=== PATIENT | female | born 1955 | race Caucasian/White ===

== ENCOUNTER 2017-10-12 13:03 | Emergency (ER) | payer OTHER ==
[~2017-10-12] VITALS: Ht 152.4 cm; Wt 72.6 kg
--- NOTE | ~2017-10-12 | EKG ---
[place] [address] 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 : 1955 Requested By: Jorge Luis Rajan Order Number: [id number] MD: Pablito Naqvi Measurements Intervals [place] Rate: 51 P: 40 AK: 208 QRS: -37 QRSD: 115 T: 120 QT: 532 QTc: 491 Interpretive Statements Sinus rhythm LVH with IVCD, LAD and secondary repol abnrm Borderline prolonged QT interval Poor R wave progression No previous ECG available for comparison Electronically Signed On 10-13-2017 8:20:25 CDT by Pablito Naqvi [email or web address] <ELECTRONICALLY SIGNED> By: Pablito Naqvi MD, [facility] 10/13/17 0820 1310 1310 Pablito Naqvi MD, [facility] /EPI
[~2017-10-12 13:03] MED LIST: B12INJ IM; BENADRYL25 MG PO; CEFPODOXIME PR100 MG PO; CLARITIN10 MG PO; EFFEXOR XR75 MG PO; FLORASTOR250 MG PO; HYDRALAZINE 2525 MG PO; IMDUR 30 MG TAB30 M1 PO; IMITREX 25 MG T25 MG PO; LAMICTAL100 MG PO; LASIX 40 MG TAB40 M2 PO; LEVEMIR SUBQ; MELATONIN3 MG PO; MIRAPEX0.5 MG PO; NORVASC10 MG PO; NOVOLOG100 UNIT/1 SUBQ; PROTONIX40 M2 PO; RENVELA800 MG PO; ROBITUSSIN100 MG/53 PO; SENSIPAR 30 MG30 M1 PO; SEROQUEL 25 MG25 M1 PO; SERTRALINE HCL50 MG PO; SIVEXTRO200 M1 PO; SYNTHROID150 MCG PO; TRILEPTAL 300300 MG PO; TRIPHROCAPS SOFT1 MG PO; VITAMIN D250000 UNIT PO; XANAX 0.25 MG0.25 MG PO; XIFAXAN550 M1 PO; ZOSTRIX56.6 G1 TP; [UNRECOGNIZED DRUG - OTHER] PO
[2017-10-12 13:31] LABS: HEMATOCRIT 30.5 % (37.0-47.0); HEMOGLOBIN 10.2 gm/dL (12.0-15.0); MCHC 33.4 g/dL (28.0-37.0); MCV 98.7 fL (80.0-100.0); RBC 3.09 mil/uL (4.20-5.00); RDW 16.8 % (10.5-14.5)
[2017-10-12 13:37] LABS: ANION GAP 9 mmol/L (7-16); BUN 71 mg/dL (7-18); CALCIUM 8.5 mg/dL (8.5-10.1); CHLORIDE 104 mmol/L (98-107); CO2 25 mmol/L (21-32); CREATININE 5.6 mg/dL (0.6-1.0); GLUCOSE 135 mg/dL (74-106); POTASSIUM 5.1 mmol/L (3.5-5.1); SODIUM 138 mmol/L (136-145)
[2017-10-12 13:45] LABS: ABSOLUTE NEUTROPHILS 2.6 thou/uL (1.4-8.2); TROPONIN-I < 0.04 ng/mL (<0.06)
[2017-10-12 13:46] LABS: PLATELET COUNT 93 thou/uL (150-400); PLATELET ESTIMATE SLIGHTLY DECREASED
== END 2017-10-12 16:45 | disposition home or self-care (01) ==
LOC: ER 13:03
PROVIDERS: Nurse Practitioner
DX: R07.89 Other chest pain (principal); I12.0 Hypertensive chronic kidney disease with stage 5 chronic kidney disease or end stage renal disease; E11.22 Type 2 diabetes mellitus with diabetic chronic kidney disease; N18.6 End stage renal disease; Z99.2 Dependence on renal dialysis; I48.91 Unspecified atrial fibrillation; Z88.2 Allergy status to sulfonamides; Z88.1 Allergy status to other antibiotic agents; Z88.6 Allergy status to analgesic agent

== ENCOUNTER 2017-10-16 01:15 | Emergency (ER) | payer OTHER ==
[~2017-10-16] VITALS: Ht 160 cm; Wt 75.8 kg
--- NOTE | ~2017-10-16 | EKG ---
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: [facility] [place] : 1955 Requested By: Kendra Jacobs Order Number: [id number] MD: Pablito Naqvi Measurements Intervals [place] Rate: 52 P: 8 NJ: 243 QRS: -41 QRSD: 117 T: 98 QT: 528 QTc: 492 Interpretive Statements Sinus rhythm Prolonged [place] interval Left anterior fascicular block LVH with secondary repolarization abnormality Compared to ECG 10/12/2017 13:10:57 First degree AV block now present Electronically Signed On 10-16-2017 8:12:22 CDT by Pablito Naqvi [email or web address] <ELECTRONICALLY SIGNED> By: Pablito Naqvi MD, [facility] [id number] Pablito Naqvi MD, [facility] /EPI
[2017-10-16 02:10] LABS: ANION GAP 11 mmol/L (7-16); BUN 94 mg/dL (7-18); CALCIUM 7.7 mg/dL (8.5-10.1); CHLORIDE 101 mmol/L (98-107); CO2 24 mmol/L (21-32); CREATININE 7.1 mg/dL (0.6-1.0); GLUCOSE 128 mg/dL (74-106); HEMATOCRIT 29.2 % (37.0-47.0); HEMOGLOBIN 9.7 gm/dL (12.0-15.0); MCH 33.1 pg (26.0-34.0); MCHC 33.1 g/dL (28.0-37.0); MCV 100.1 fL (80.0-100.0); PLATELET COUNT 90 thou/uL (150-400); POTASSIUM 5.7 mmol/L (3.5-5.1); RBC 2.92 mil/uL (4.20-5.00); RDW 17.4 % (10.5-14.5); SODIUM 136 mmol/L (136-145); WBC 4.2 thou/uL (4.0-11.0)
[2017-10-16 02:18] LABS: ALBUMIN 3.1 g/dL (3.4-5.0); DIRECT BILIRUBIN 0.2 mg/dL (<0.1-0.3); SGOT 37 U/L (15-37); SGPT 39 U/L (30-65); TOTAL BILIRUBIN 0.5 mg/dL (<0.1-1.0); TOTAL PROTEIN 7.8 g/dL (6.4-8.2); TROPONIN-I < 0.04 ng/mL (<0.06)
[2017-10-16 02:44] LABS: ABSOLUTE NEUTROPHILS 3.5 thou/uL (1.4-8.2); ANISOCYTOSIS 1+
== END 2017-10-16 04:16 | disposition home or self-care (01) ==
LOC: ER 01:15
PROVIDERS: Emergency Medicine
DX: D64.9 Anemia, unspecified (principal); M25.512 Pain in left shoulder; G47.9 Sleep disorder, unspecified; E11.9 Type 2 diabetes mellitus without complications; F32.9 Major depressive disorder, single episode, unspecified; I48.91 Unspecified atrial fibrillation; I12.0 Hypertensive chronic kidney disease with stage 5 chronic kidney disease or end stage renal disease; N18.6 End stage renal disease; Z88.6 Allergy status to analgesic agent; Z90.49 Acquired absence of other specified parts of digestive tract; Z90.710 Acquired absence of both cervix and uterus; Z88.2 Allergy status to sulfonamides; Z88.8 Allergy status to other drugs, medicaments and biological substances

== ENCOUNTER 2018-09-13 23:55 | Inpatient (IN) | payer OTHER ==
[~2018-09-13] VITALS: Ht 160 cm; Wt 68.0 kg
[2018-09-13 23:57] VITALS: BP 140/47
[2018-09-14 00:51] LABS: ABSOLUTE NEUTROPHILS 8.7 thou/uL (1.4-8.2); BASOPHILS 0.2 % (0.0-2.0); HEMATOCRIT 32.2 % (37.0-47.0); HEMOGLOBIN 10.6 gm/dL (12.0-15.0); LYMPHOCYTES 2.6 % (24.0-44.0); MCH 34.3 pg (26.0-34.0); MCHC 33.1 g/dL (28.0-37.0); MCV 103.7 fL (80.0-100.0); MONOCYTES 6.2 % (1.0-8.0); PLATELET COUNT 86 thou/uL (150-400); RBC 3.11 mil/uL (4.20-5.00); WBC 9.5 thou/uL (4.0-11.0)
[2018-09-14 00:59] LABS: CALCIUM 9.7 mg/dL (8.5-10.1); CREATININE 6.8 mg/dL (0.6-1.0)
[2018-09-14 01:00] LABS: POTASSIUM 5.4 mmol/L (3.5-5.1)
[2018-09-14 01:05] LABS: ALBUMIN 2.8 g/dL (3.4-5.0); DIRECT BILIRUBIN 0.2 mg/dL (<0.1-0.3); TOTAL BILIRUBIN 0.5 mg/dL (<0.1-1.0); TOTAL PROTEIN 7.9 g/dL (6.4-8.2)
[2018-09-14 01:57] LABS: URINE BILIRUBIN NEGATIVE (Negative); URINE BLOOD TRACE (Negative); URINE CLARITY CLOUDY; URINE COLOR YELLOW; URINE GLUCOSE-RANDOM* NEGATIVE (Negative); URINE KETONES NEGATIVE (Negative); URINE NITRITE-REFLEX NEGATIVE (Negative); URINE PROTEIN (DIPSTICK) 2+ (Negative); URINE UROBILINOGEN 0.2 E.U./dl (0.2-1.0)
[2018-09-14 02:04] LABS: URINE LEUKOCYTES-REFLEX 3+ (Negative)
[2018-09-14 02:05] LABS: BACTERIA-REFLEX >30 Many /HPF (None Seen); CASTS None Seen /LPF (None Seen); MUCUS 0-3 Light strn/LPF (None Seen); SQUAMOUS >10 Many /LPF (0-3); URINE RBC 0-2 Rare /HPF (0-2); URINE WBC-REFLEX >25 Many /HPF (0-5); WBC CLUMPS Packed (None Seen)
[2018-09-14 02:06] LABS: CRYSTALS None Seen /LPF (None Seen)
[2018-09-14 03:11] VITALS: BP 135/60
[2018-09-14] MEDS ORDERED: DIPHENHYDRAMINE25 M3 PO (03:55)
[2018-09-14 03:57] VITALS: BP 146/50
[2018-09-14] MEDS ORDERED: CALCIUM ACETAT667 M2 PO (03:57)
[2018-09-14] MEDS ORDERED: PEPCID20 MG PO (03:58)
[2018-09-14] MEDS ORDERED: EFFEXOR XR150 MG PO (03:58)
[2018-09-14] MEDS ORDERED: COLACE100 MG PO (03:58)
[2018-09-14] MEDS ORDERED: HYDRALAZINE HC100 MG PO (03:59)
[2018-09-14] MEDS ORDERED: NEURONTIN100 MG PO (03:59)
[2018-09-14] MEDS ORDERED: IMITREX 50 MG T50 MG PO (04:01)
[2018-09-14] MEDS ORDERED: AVAPRO 150 MG150 M1 PO (04:01)
[2018-09-14] MEDS ORDERED: NIFEDIPINE ER60 M1 PO (04:02)
[2018-09-14] MEDS ORDERED: MIRALAX17 GM PO (04:02)
[2018-09-14] MEDS ORDERED: NIFEDIPINE ER30 M1 PO (04:02)
[2018-09-14] MEDS ORDERED: OXYCODONE HCL E10 MG PO (04:03)
[2018-09-14] MEDS ORDERED: RENA-VITE TABL0.8 MG PO (04:03)
[2018-09-14] MEDS ORDERED: SEROQUEL 25 MG25 M1 PO (04:04)
[2018-09-14] MEDS ORDERED: GAS RELIEF80 MG PO (04:04)
[2018-09-14] MEDS ORDERED: OXCARBAZEPINE300 MG PO (04:05)
[2018-09-14] MEDS ORDERED: VITAMIN D1000 UNI1 PO (04:05)
[2018-09-14] MEDS ORDERED: ONDANSETRON HCL4 M2 PO (04:06)
[2018-09-14] MEDS ORDERED: RENVELA800 MG PO (04:07)
--- NOTE | 2018-09-14 04:53 | NUR ---
ADMITTED FROM ER UNDER 'S CARE. ADMIT WITH SEPSIS AND PYRONEPHRITIS. AXOX4. DENIES PAIN AT THIS TIME. HD ACCESS ON JENNIFER POSITIVE BRUIT AND THRILL. LIMB ALERT ON. TEMP 100s. REPORTED TO JOSE CARROLL THAT MED REC IS COMPLETE. PT LITTLE BIT DRWOSY BUT AROUSABLE AND ANSWERS ALL QUESTIONS WITH EFFORT. WOUND PICTURE TAKEN AND INITAL TX GIVEN. PUT ON ISO FOR MRSA OF THE R CALF WOUND. DENIES CHILLS/NAUSEA/CEHST PAIN/SOB UPON ARRIVAL. RESTING IN BED COPMFORTALBLY. WILL CONT TO MONITOR FOR ANY CHANGES IN CONDITION.
[2018-09-14 08:00] VITALS: BP 184/62
--- NOTE | 2018-09-14 12:01 | NUR ---
Nutrition: assess d/t consult for wound. Admitted w/ AMS, sepsis; hx of ESRD, DM. Pt on dialysis MWF. Pt was being taken for test during attempted visit. Unable to obtain wt/intake hx. Will order Nepro shakes and follow up on 09/17/18.
--- NOTE | 2018-09-14 13:41 | NUR ---
PT ADMITTED RELATED TO AMS, SEPSIS, PYRONEPHRITIS. CM REVIEWED CHART AND SPOKE WITH CARE TEAM. C, ,ET WITH PT AT BEDSIDE THIS DAY. PT IS A&O X4. CM ROLE INTRODUCED PT INDICATED SHE LIVES AT [facility]. 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 PT INDICATED SHE DOES DIALYSIS AT [facility]. PT INDICATED SHE PLANS TO RETURN TO [place] ONCE MEDICALLY STABLE. CM TO [facility] INDICATED WITH DC PLANNING.
--- NOTE | 2018-09-14 13:52 | NUR ---
CARE TEAM INDICATED THAT PT EXPRESSED DESIRE TO TRANSFER TO [facility]. CM CALLED [facility] AND INDICATED PT REQUESTED TO TRANSFER. CM FAXED CLINICAL INFO FOR THEIR REVIEW. THEY INDICATED THEY REVIEW REFERRAL AND LET CM KNOW IF THEY WERE ABLE TO ACCEPT FOR TRANSFER. ACCESS CENTER CALLED [facility] AND INDICATED THAT [facility] WOULD LIKELY NOT ACCEPT PT THERE AREN'T ANY SERVICES THAT SHE NEEDS THAT CAN'T BE PROVIDED HERE BUT THAT THEY WERE GOING TO CALL BACK SHORTLY TO CONFIRM. CM AWAITINGING CONFIRMATION.
--- NOTE | 2018-09-14 14:41 | NUR ---
[facility] ACCESS [facility]ENTER INDICATED THAT [facility] COULD ACCEPT PT BUT THAT BECAUSE IT WAS PT'S REQUESTE FOR TRANSFER SHE WOULD BE RESPONSIBLE FOR TRANSPORT COST. CM NOTIFIED PT AND SHE INDCIATED THAT SHE CAN'T AFFORD THE COST OF TRANSPORT AND WOULD HAVE TO REMAIN HERE AT [facility]. CM TO FOLLOW INDICATED WITH DC PLANNING.
[2018-09-14 15:00] VITALS: BP 146/75
--- NOTE | 2018-09-14 15:22 | NUR ---
DISCHARGE PLANNING. [facility] FOLLOWING TO ASSIST WITH DISCHARGE NEEDS.
--- NOTE | 2018-09-14 15:30 | NUR ---
WOUND CONSULT: PT. WAS SEEN TODAY BY DR. MCINTOSH AND MYSELF. PT. HAS A WOUND TO HER RIGHT HILTON OF UNKOWN ETIOLOGY. COULD BE TRAMATIC IN NATURE. WOUND BED IS CLEAN AND HEALTHY IN APPEARENCE WITHOUT ANY SIGNS OR SYMPTOMS OF INFECTION. RECOMMENDATIONS: WOUND CARE TO RIGHT HILTON: GENTLY CLEANSE AREA WITH WOUND CLEANSER OR NORMAL SALINE, APPLY PURACOL AG TO WOUND BED, COVER WITH OPTIFOAM, COMPLETE CARES DAILY AND PRN. PT. AND STAFF NURSE WERE INSTRUCTED ON PLAN OF CARE.
--- NOTE | 2018-09-14 16:52 | NUR ---
IF PT IS MEDICALLY STABLE TO DC OVER THE WEEKEND BACK TO [facility] CONTACT AND FAX ORDERS TO . CHART COPY ORDERED.
--- NOTE | 2018-09-14 18:52 | NUR ---
Assumed pt care this am, consult to renal since pt is due for dialysis (MWF). Pt is on islation for MRSA from her wound located on her calf. Wound care came orders for care given and dressing done. Hemodialysis done today, pulled 2.5 L of fluid vs are stable. Pt is on a renal diet and is tolerating it well nad prefers the drinks. Diagnostics and labs done today. Pt seems to be out of it and would talk to her self and repeat her statements. Same observation was made by dialysis nurse. No complaints of pain nor nausea or vomiting has been noted.
[2018-09-14 20:01] VITALS: BP 138/72
--- NOTE | 2018-09-15 01:13 | NUR ---
patient aox4 makes needs known. patient needs turn q 2 hours. left merritt wound dressing is c/d/i. patient had dialysis and tolerated well. patient refused hs insulin. patient unhappy with care all needs met this shift. patient denied pain or discomfort.patient in bed asleep at this time breathing regular and unlaboured.
[2018-09-15 03:11] LABS: HEPATITIS B SURFACE AG Negative (Negative)
[2018-09-15 03:54] VITALS: BP 124/68
[2018-09-15 05:48] LABS: CALCIUM 9.1 mg/dL (8.5-10.1); POTASSIUM 4.1 mmol/L (3.5-5.1)
[2018-09-15 05:56] LABS: CREATININE 4.1 mg/dL (0.6-1.0)
[2018-09-15 07:35] VITALS: BP 182/76
[2018-09-15 15:08] VITALS: BP 133/58
--- NOTE | 2018-09-15 15:15 | NUR ---
RAPID RESPONSE CALLED FOR PT DUE TO FEELING COLD AND CLAMMY, AND TACHYCARDIC IN 180'S. ORDERS RECIEVED FOR EKG, CBC, CMP. PT BG 226. DR PATEL AT BEDSIDE AT THIS TIME.
[2018-09-15 15:27] LABS: MCH 34.2 pg (26.0-34.0); MCHC 33.4 g/dL (28.0-37.0); MCV 102.6 fL (80.0-100.0); PLATELET COUNT 83 thou/uL (150-400); RBC 3.51 mil/uL (4.20-5.00); RDW 16.7 % (10.5-14.5); WBC 8.2 thou/uL (4.0-11.0)
[2018-09-15 15:32] LABS: BE(vivo) 2.3 mmol/L (-2 to +3); HCO3 26.7 mmol/L (22.0-26.0); PCO2 40.9 mmHg (35.0-45.0); PO2 71.6 mmHg (80.0-100.0); pH 7.433 (7.360-7.450); sO2 94.9 % (92.0-98.0)
[2018-09-15 15:39] LABS: ALBUMIN 2.7 g/dL (3.4-5.0); CALCIUM 9.9 mg/dL (8.5-10.1); CREATININE 4.9 mg/dL (0.6-1.0); TOTAL BILIRUBIN 0.5 mg/dL (<0.1-1.0); TOTAL PROTEIN 8.6 g/dL (6.4-8.2)
[2018-09-15 15:47] LABS: ABSOLUTE NEUTROPHILS 6.6 thou/uL (1.4-8.2); ANISOCYTOSIS 1+; METAMYELOCYTES 1 %
[2018-09-15 15:48] LABS: MACROCYTES 1+
--- NOTE | 2018-09-15 18:24 | NUR ---
ORIENTED TO SELF AND HOSPITAL. ANXIOUS AT TIMES, CALLS OUT OFTEN. MRSA ISOLATION FOR RIGHT HILTON WOUND. END STAGE RENAL FX, CR 4.1 THIS MORNING. BECOMES COOL AND CLAMMY THIS AFTERNOON, HR LABILE 80-180. RAT TEAM ACTIVATED. TELEMETRY PLACED. EKG, ABG, LABWORK. DR. PATEL CALLED AND ARRIVES. SHE SUDDENLY ASYMPTOMATIC. BG 257, CR 4.9, NA 124. SR PER TELE THIS AFTERNOON. FREQUENT CHECKS; WILL CONTINUE TO MONITOR.
[2018-09-15 21:33] VITALS: BP 177/83
[2018-09-16 04:53] VITALS: BP 118/53
[2018-09-16 06:04] LABS: HEMATOCRIT 35.9 % (37.0-47.0); HEMOGLOBIN 11.9 gm/dL (12.0-15.0); MCH 33.6 pg (26.0-34.0); MCHC 33.1 g/dL (28.0-37.0); MCV 101.7 fL (80.0-100.0); RBC 3.53 mil/uL (4.20-5.00); RDW 16.4 % (10.5-14.5); WBC 5.9 thou/uL (4.0-11.0)
[2018-09-16 06:21] LABS: ALBUMIN 2.5 g/dL (3.4-5.0); CALCIUM 9.9 mg/dL (8.5-10.1); CREATININE 5.6 mg/dL (0.6-1.0); PHOSPHORUS 5.1 mg/dL (2.5-4.9); POTASSIUM 4.2 mmol/L (3.5-5.1)
--- NOTE | 2018-09-16 06:43 | NUR ---
Pt. rested quietly at intervals during the night when checked on during frequent rounds. She has been incontinent of urine and nathalie care given. No c/o pain. Bed alarm is on.
[2018-09-16 07:30] VITALS: BP 131/68
--- NOTE | 2018-09-16 12:12 | NUR ---
TOWARDS POC PT A/O X4, VSS, AFEBRILE, DENIES PAIN, NO SOA. NO CONCERNS VOICED, WILL CONTINUE TO MONITOR.
[2018-09-16 13:15] VITALS: BP 141/73
--- NOTE | 2018-09-16 13:38 | EKG ---
[address] 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 : 1955 Requested By: Samy Kwok Order Number: [id number] MD: Pablito Naqvi Measurements Intervals [place] Rate: 82 P: 42 [place]: 175 QRS: -44 QRSD: 113 T: 59 QT: 404 QTc: 472 Interpretive Statements Sinus rhythm Left anterior fascicular block Abnormal R-wave progression, late transition Left ventricular hypertrophy Compared to ECG 10/16/2017 02:31:27 Heart rate has increased First degree AV block no longer present Electronically Signed On 09-16-2018 13:38:40 CDT by Pablito Naqvi [email or web address] ��������������������������������������������� <ELECTRONICALLY SIGNED> ���������������������������������������� By: Pablito Naqvi MD, [facility] ��������������������������������������������� 09/16/18 1338 1511 1511 Pablito Naqvi MD, [facility] /EPI
[2018-09-16 20:03] VITALS: BP 141/52
--- NOTE | 2018-09-17 03:50 | NUR ---
PATIENT AOX2 CONFUSED AND FORGETFUL. PATIENT USES BEDSIDE COMMODE. PATIENT CALM AND COOPERATIVE WITH CARE AND MEDS. PATIENT NEED MINIMUM ASSISTANCE WITH ADL, BED MOBILITY, TRANSFER, AND TOILETING. FALL PRECAUTION IN PLACE. PATIENT USES CALL LIGHT APPROPRIATELY.PATIENT IN BED ASLEEP AT THIS TIME BREATHING REGULAR AND UNLABOURED.
[2018-09-17 05:56] VITALS: BP 162/75
--- NOTE | 2018-09-17 07:30 | HC ---
[facility] [place] [address] CONSULTATION Name: RAY DEMPSEY Room #: 450-P ADM IN ..#: [id number] Admission: 09/14/18 ������������������ Attend Phys: Samy Kwok MD Discharge: ������������������ Date of : 51 Report #: [id number] THIS REPORT FOR: //name// CC: Samy Kwok Chana Kidd DATE OF SERVICE: 09/14/2018 CHIEF COMPLAINT: Traumatic wound to the right leg. HISTORY OF PRESENT ILLNESS: This is a 63-year-old female patient with a history of end-stage renal disease, chronic dialysis, who was noted to have a traumatic wound to her right pretibial region that occurred several weeks ago. It has been slow to heal, is mildly tender for her. I have been asked to see her with regard to wound care. PAST MEDICAL HISTORY: Positive for diabetes mellitus, hepatitis C, hypertension, depression, hysterectomy, end-stage renal disease, on hemodialysis, atrial fibrillation. FAMILY HISTORY: Positive for heart disease and diabetes. SOCIAL HISTORY: The patient is a past user of alcohol and has some history of past drug use. Details not delineated here. ALLERGIES: TYLENOL, ASPIRIN, SULFA, TRIMETHOPRIM, and GEODON. MEDICATIONS: Include Xanax, Benadryl, Norvasc, Imitrex, Imdur, Lamictal, Lasix, Synthroid, Claritin, Florastor, Triphrocaps, Protonix, Mirapex, Renvela, Xifaxan, Effexor, Zoloft, Zostrix, NovoLog, cyanocobalamin, Sivextro, insulin. REVIEW OF SYSTEMS: CONSTITUTIONAL: The patient denies fever, chills, weight loss. NEUROLOGICAL: The patient denies focal weakness, numbness or tingling. EYES: The patient denied any visual changes, redness or drainage. ENT: The patient denies earache, nasal drainage or sore throat. CARDIOVASCULAR: The patient denies chest pain, palpitations, diaphoresis. PULMONARY: The patient denies cough, short of breath. GASTROINTESTINAL: The patient denies nausea, vomiting or abdominal pain. ORTHOPEDIC: The patient complains of pain, some mild discomfort associated with traumatic wound over to the right leg. Other systems are negative. PHYSICAL EXAMINATION: VITAL SIGNS: Include temperature 37.8, pulse 69, respiration 20, blood pressure 184/62. GENERAL: This is a chronically ill-appearing female patient who appears to be [address] [address] CONSULTATION Name: RAY DEMPSEY Room #: 450-P [facility]#: [id number] Admission: 09/14/18 ������������������ Attend Phys: Samy Kwok MD Discharge: ������������������ Date of : 51 Report #: [id number] in minimal distress. HEENT: Head normocephalic. Nose and throat are clear. NECK: Supple. LUNGS: Clear. ABDOMEN: Soft. Bowel sounds present. EXTREMITIES: Lower extremities demonstrate diminished, yet palpable distal pulses. SKIN: Everly, warm and dry. She is traumatic wound to the right pretibial region that is relatively healthy, clean and granular with a small amount of depth noted. No tunneling or undermining. NEUROLOGIC: The patient is alert and oriented. LABORATORY DATA: Includes white blood cell count 9.5 with hemoglobin of 10.6, hematocrit [place] 32.2[place] [address]. Sodium 135, potassium 5.4, chloride 99, CO2 22, BUN 81, creatinine 6.8, albumin is 2.8. CLINICAL IMPRESSION: 1. Traumatic wound to the right pretibial region. 2. Diabetes mellitus. 3. End-stage renal disease, requiring dialysis. 4. Pyelonephritis. RECOMMENDATIONS: At this point in time, we will recommend a Fibracol dressing to the wound base, covered with a bordered foam, to be changed daily. We will recommend to continue antibiotics for the pyelonephritis. Continue dialysis. Continue current medications, nutritional support to maximize wound healing. I appreciate being asked to see her in consultation. ��������������������������������������������� <ELECTRONICALLY SIGNED> ���������������������������������������� By: Chicho Ladd MD ��������������������������������������������� 09/17/18 0730 1729 0422 Chicho Ladd MD /nt
[2018-09-17 07:40] VITALS: BP 106/57
[2018-09-17 09:50] LABS: HEMATOCRIT 30.1 % (37.0-47.0); HEMOGLOBIN 10.2 gm/dL (12.0-15.0); MCH 33.9 pg (26.0-34.0); MCV 99.7 fL (80.0-100.0); RBC 3.02 mil/uL (4.20-5.00); RDW 15.8 % (10.5-14.5); WBC 6.3 thou/uL (4.0-11.0)
[2018-09-17 10:01] LABS: CALCIUM 9.4 mg/dL (8.5-10.1); CREATININE 7.3 mg/dL (0.6-1.0)
[2018-09-17 10:23] LABS: ABSOLUTE NEUTROPHILS 4.7 thou/uL (1.4-8.2)
[2018-09-17 10:24] LABS: PLATELET COUNT 91 thou/uL (150-400); PLATELET ESTIMATE SLIGHTLY DECREASED
--- NOTE | 2018-09-17 12:18 | NUR ---
Pt stated she was informed by Dr. Kwok that she can get up when she wants on her own and there is no need to inform the nurses. Will confirm, but will still keep the bed alarm on.
--- NOTE | 2018-09-17 13:18 | NUR ---
DP SENT UPDATES ON PATIENT TO [place], PATIENT TO [facility] TOMORROW.
--- NOTE | 2018-09-17 15:36 | NUR ---
WOUND FOLLOW UP: PT. WAS SEEN TODAY BY DR. MCINTOSH AND MYSELF. PT. WOUND TO HER LEG IS CLINICALLY BETTER UPON TODAYS ASSESEMENT. WOUND IS SMALL AND LESS IRRIATATED. RECOMMENDATIONS: CONTINUE WITH CURRENT PLAN OF CARE. PT. AND STAFF NURSE WERE INSTRUCTED ON PLAN OF CARE.
[2018-09-17 15:42] VITALS: BP 103/57
[2018-09-17 20:15] VITALS: BP 93/64
[2018-09-18 03:49] VITALS: BP 147/47
--- NOTE | 2018-09-18 03:58 | NUR ---
PATIENT AOX3 MAKES NEEDS KNOWN. PATIENT REMOVED IV. NEW IV ON RAC. PATIENT IS HAVING IV ABT AT THIS TIME. PATIENT DENIED PAIN OR DISCOMFORT. FALL PRECAUTION IN PLACE. PATIENT IN BED ASLEEP AT THIS TIME BREATHING REGULAR AND UNLABOURED.
[2018-09-18 05:19] LABS: HEMATOCRIT 31.5 % (37.0-47.0); HEMOGLOBIN 10.5 gm/dL (12.0-15.0); MCH 33.6 pg (26.0-34.0); MCHC 33.4 g/dL (28.0-37.0); MCV 100.7 fL (80.0-100.0); RBC 3.13 mil/uL (4.20-5.00); RDW 15.6 % (10.5-14.5); WBC 12.3 thou/uL (4.0-11.0)
[2018-09-18 05:30] LABS: CALCIUM 8.6 mg/dL (8.5-10.1); POTASSIUM 4.7 mmol/L (3.5-5.1)
[2018-09-18 05:34] LABS: CREATININE 3.9 mg/dL (0.6-1.0)
[2018-09-18 08:15] VITALS: BP 144/63
--- NOTE | 2018-09-18 12:05 | NUR ---
TOWARDS POC PT A/O X3, FORGETFULL, CONFUSED AT TIMES. VSS, AFEBRILE, PAIN MANAGED BY MEDS. PT IS PROBABLE DC TODAY TO [facility]. WILL CONTINUE TO MONITOR.
--- NOTE | 2018-09-18 13:52 | NUR ---
SW reviewed chart and spoke with nursing and attending physician. Pt may be ready for discharge back to [facility] later today. LOKESH spoke with pt's dtr, Emilia Schreiber via phone to provide update and notify of discharge plan. Pt's dtr is aware and agreeable with plan. Pt's dtr requested info on getting a new DPOA document completed. SW explained that pt must be alert/orientated x 4 in order to complete a legal document. DPOA document is not on file at [facility] or on chart from [facility]. Pt's dtr verbalized understanding. Awaiting final discharge orders at this time. LOKESH is following to assist as needed with discharge planning.
[2018-09-18 15:40] VITALS: BP 128/58; BP 152/89
--- NOTE | 2018-09-18 16:46 | NUR ---
WOUND FOLLOW UP: PT. WAS SEEN TODAY BY DR. MCINTOSH AND MYSELF. PT. WOUND IS CLINICALLY BETTER AT THIS TIME. RECOMMENDATIONS: CONTINUE WITH CURRENT PLAN OF CARE. PT. AND STAFF NURSE WERE INSTRUCTED ON PLAN OF CARE.
[2018-09-18 19:55] VITALS: BP 148/43
[2018-09-19 03:44] VITALS: BP 118/47
--- NOTE | 2018-09-19 05:06 | NUR ---
A/O. Patient voiced that she hoped the staff could wake her up during the meal time, she didnot want to miss her meals. Patient tried to have the staff to turn off the bed alarm, voicing that the doctor said she could get up to walk, the staff talked to the patient, the patient agreed to have the bed alarm on for the night. afebrile, no c/o pain, no n/v.
[2018-09-19 05:19] LABS: CALCIUM 9.1 mg/dL (8.5-10.1); POTASSIUM 4.7 mmol/L (3.5-5.1)
[2018-09-19 05:42] LABS: HEMATOCRIT 31.5 % (37.0-47.0); HEMOGLOBIN 10.6 gm/dL (12.0-15.0); MCH 33.7 pg (26.0-34.0); MCHC 33.5 g/dL (28.0-37.0); MCV 100.4 fL (80.0-100.0); RBC 3.14 mil/uL (4.20-5.00); RDW 15.8 % (10.5-14.5); WBC 6.9 thou/uL (4.0-11.0)
[2018-09-19 05:47] LABS: CREATININE 5.6 mg/dL (0.6-1.0)
[2018-09-19 08:00] VITALS: BP 136/59
--- NOTE | 2018-09-19 10:52 | NUR ---
DISCHARGE PLANNING. CALL RECEIVED FROM [facility] AD[facility]. [facility] REQUESTING INFORMATION REGARDING PATIENTS DISCHARGE PLANS. UPDATED [facility] TO POSSIBLE DISCHARGE TODAY, PENDING PATIENTS WBC RESULTS. UPDATED CLINICAL INFORMATION RECEIVED. FOLLOWING TO ASSIST WITH DC.
[2018-09-19] MEDS ORDERED: CEFDINIR300 MG PO (14:52)
--- NOTE | 2018-09-19 17:49 | NUR ---
Assumed pt care this am, vs have been stable. WBC count is back to normal. Vital signs stable. Same issues have been verbalized from last night, she wants to be awaken when meals arrive. Dialysis is ongoing, startged at 5pm. DC orders have been given, pt is to return to [place]. Endorsed to the night nurse, to call [facility] for transport and picture of wound to be taken prior to dc.
--- NOTE | 2018-09-19 21:45 | NUR ---
Assisted pt to the bedside commode. She refused to keep her socks on, she refused to be put back in bed and wanted to seat on the edge of the bed. She didnt want the bed alarm to be put on. I informed the primary nurse.
--- NOTE | 2018-09-19 22:42 | NUR ---
PT RETURNED FROM DIALYSIS. ANXIOUS TO LEAVE, UNHAPPY HER DINNER WAS COLD REFUSED TO ALLOW ME TO WARM IT UP REFUSED ALL OTHER FOOD OPTIONS AVAILABLE TO HER. REPORT CALLED TO [facility] AT [facility]. PC TO [facility] FORM FAXED TO [facility] WITHIN THE HOUR.
--- NOTE | 2018-09-20 09:37 | HC ---
[facility] [place] [address] CONSULTATION Name: RAY DEMPSEY Eusebia Room #: 450-P [facility]..#: [id number] Admission: 09/14/18 ������������������ Attend Phys: Samy Kwok MD Discharge: 09/19/18 ������������������ Date of : 51 Report #: [id number] THIS REPORT FOR: //name// CC: Samy Kwok Chana Kidd REASON FOR CONSULTATION: End-stage renal disease. REASON FOR PRESENTATION: Shaking and fever. HISTORY OF PRESENT ILLNESS: This is a 63-year-old with past medical history of end-stage renal disease, who was maintained on hemodialysis every Monday, Monday and Monday. She is dialyzing in the [facility]. She has been on dialysis for the last 5 years. She tells me that she was born with a single kidney. She had some fever and tremors and presented for further evaluation. She was found to have a temperature of 101.9 in the nursing facility. She denies any cough or shortness of breath. No reported similar episodes. No GI illnesses in the form of nausea or vomiting or diarrhea. She is being admitted to further investigate. I am being consulted to manage her end-stage renal disease. From the dialysis perspective, she is utilizing a left AV fistula. She has been on dialysis for the last 5 years. PAST MEDICAL HISTORY: 1. Diabetes mellitus. 2. Hypertension. 3. Hep C. 4. End-stage renal disease, maintained on hemodialysis. 5. AFib. 6. Migraines. 7. Left AV fistula. MEDICATIONS: 1. Alprazolam. 2. Amlodipine. 3. Lamotrigine. 4. Lasix. 5. Levothyroxine. 6. Pantoprazole. 7. Mirapex. 8. Zostrix. 9. Insulin. 10. Hydralazine. FAMILY HISTORY: Significant for heart disease. SOCIAL HISTORY: She resides in the nursing facility. No drug or alcohol abuse. [facility] [address] [place] [address] CONSULTATION Name: RAY DEMPSEY Room #: [facility].#: [id number] Admission: 09/14/18 ������������������ Attend Phys: Samy Kwok MD Discharge: 09/19/18 ������������������ Date of : 51 Report #: [id number] REVIEW OF SYSTEMS: GENERAL: Significant for fever and chills. CARDIOVASCULAR: No chest pain or palpitation. PULMONARY: No cough or hemoptysis. GASTROINTESTINAL: No nausea or vomiting. MUSCULOSKELETAL: As per the history of present illness. NEUROLOGICAL: As per the history of present illness. PHYSICAL EXAMINATION: GENERAL: She was alert, somewhat weak. No apparent distress. VITAL SIGNS: Blood pressure was 140/50. Pulse rate 64. She had a temperature of 38. HEAD AND NECK: No jugular venous distention. CHEST: No crackles. CARDIOVASCULAR: No rub. ABDOMEN: Soft and nontender. LOWER EXTREMITIES: There is a wound on the right lower extremity with +2 edema. No gross cellulitis. LABORATORY DATA: Laboratory value reviewed. Platelets is down to 86,000. Sodium is 135, potassium is 5.4, BUN is 81 and creatinine 6.8. RADIOLOGICAL DATA: Chest x-ray is clear. ASSESSMENT, IMPRESSION AND PLAN: 1. End-stage renal disease. 2. Fever. 3. Hep C. 4. Polypharmacy. 5. Thrombocytopenia. 6. Hyperkalemia. 7. We will arrange for the patient to have her usual hemodialysis today. Low K bath. 8. Investigate the source for her fever and thrombocytopenia. 9. Minimize her medication as she is definitely having a polypharmacy issue. ��������������������������������������������� <ELECTRONICALLY SIGNED> ���������������������������������������� By: Jonas Buckley MD ��������������������������������������������� 09/20/18 0937 0849 2333 Jonas Buckley MD /nt
== END 2018-09-19 23:16 | DRG 871 ==
LOC: ER 23:55 → 4W 09-14 02:26 → EROBS 09-14 02:26 → 4W 09-14 03:46
PROVIDERS: Emergency Medicine; Hospitalist; Nurse Practitioner Family; ADMIT Hospitalist
PROC: 5A1D70Z Performance of Urinary Filtration, Intermittent, Less than 6 Hours Per Day (ICD-10-PCS; principal; 2018-09-14)
PROC: 5A1D70Z Performance of Urinary Filtration, Intermittent, Less than 6 Hours Per Day (ICD-10-PCS; 2018-09-17)
PROC: 5A1D70Z Performance of Urinary Filtration, Intermittent, Less than 6 Hours Per Day (ICD-10-PCS; 2018-09-19)
DX: A41.9 Sepsis, unspecified organism (principal); N18.6 End stage renal disease; I12.0 Hypertensive chronic kidney disease with stage 5 chronic kidney disease or end stage renal disease; N13.6 Pyonephrosis; I47.1 Supraventricular tachycardia; N10 Acute pyelonephritis; E11.22 Type 2 diabetes mellitus with diabetic chronic kidney disease; B19.20 Unspecified viral hepatitis C without hepatic coma; F32.9 Major depressive disorder, single episode, unspecified; G43.909 Migraine, unspecified, not intractable, without status migrainosus; D69.6 Thrombocytopenia, unspecified; I48.0 Paroxysmal atrial fibrillation; B96.20 Unspecified Escherichia coli [E. coli] as the cause of diseases classified elsewhere; E87.5 Hyperkalemia; S81.801A Unspecified open wound, right lower leg, initial encounter; X58.XXXA Exposure to other specified factors, initial encounter; Y93.89 Activity, other specified; Y92.89 Other specified places as the place of occurrence of the external cause; Y99.8 Other external cause status; Z90.49 Acquired absence of other specified parts of digestive tract; Z90.710 Acquired absence of both cervix and uterus; Z99.2 Dependence on renal dialysis; Z79.4 Long term (current) use of insulin; Z79.899 Other long term (current) drug therapy; Z88.6 Allergy status to analgesic agent; Z88.1 Allergy status to other antibiotic agents; Z88.2 Allergy status to sulfonamides; Z88.8 Allergy status to other drugs, medicaments and biological substances; Z82.49 Family history of ischemic heart disease and other diseases of the circulatory system; Z83.3 Family history of diabetes mellitus
CPT/HCPCS: 10045; 10047; 32100

== ENCOUNTER 2019-03-12 12:57 | Emergency (ER) | payer OTHER ==
[~2019-03-12] VITALS: Ht 157.5 cm; Wt 72.6 kg
[~2019-03-12 12:57] MED LIST changes: +AVAPRO 150 MG150 M1 PO; +CALCIUM ACETAT667 M2 PO; +CEFDINIR300 MG PO; +COLACE100 MG PO; +DIPHENHYDRAMINE25 M3 PO; +EFFEXOR XR150 MG PO; +GAS RELIEF80 MG PO; +HYDRALAZINE HC100 MG PO; +IMITREX 50 MG T50 MG PO; +MIRALAX17 GM PO; +NEURONTIN100 MG PO; +NIFEDIPINE ER30 M1 PO; +NIFEDIPINE ER60 M1 PO; +ONDANSETRON HCL4 M2 PO; +OXCARBAZEPINE300 MG PO; +OXYCODONE HCL E10 MG PO; +PEPCID20 MG PO; +RENA-VITE TABL0.8 MG PO; +VITAMIN D1000 UNI1 PO
[2019-03-12] MEDS ORDERED: DOXYCYCLINE 10100 MG PO (14:29)
[2019-03-12 16:34] VITALS: BP 132/76
== END 2019-03-12 16:34 | disposition home or self-care (01) ==
LOC: ER 12:57
DX: L03.012 Cellulitis of left finger (principal); I48.91 Unspecified atrial fibrillation; E11.22 Type 2 diabetes mellitus with diabetic chronic kidney disease; I12.0 Hypertensive chronic kidney disease with stage 5 chronic kidney disease or end stage renal disease; N18.6 End stage renal disease; F32.9 Major depressive disorder, single episode, unspecified; Z99.2 Dependence on renal dialysis; Z90.49 Acquired absence of other specified parts of digestive tract; Z90.710 Acquired absence of both cervix and uterus; Z98.890 Other specified postprocedural states; Z88.6 Allergy status to analgesic agent; Z88.2 Allergy status to sulfonamides; Z88.8 Allergy status to other drugs, medicaments and biological substances

== ENCOUNTER 2019-07-15 09:01 | Emergency (ER) | payer OTHER ==
[~2019-07-15] VITALS: Ht 157.5 cm; Wt 68.0 kg
[~2019-07-15 09:01] MED LIST changes: +DOXYCYCLINE 10100 MG PO
[2019-07-15 09:31] LABS: HEMATOCRIT 28.9 % (37.0-47.0); HEMOGLOBIN 9.5 gm/dL (12.0-15.0); MCHC 32.8 g/dL (28.0-37.0); MCV 103.9 fL (80.0-100.0); RBC 2.78 mil/uL (4.20-5.00); WBC 3.3 thou/uL (4.0-11.0)
[2019-07-15 09:51] LABS: ANION GAP 11 mmol/L (7-16); BUN 46 mg/dL (7-18); CALCIUM 10.1 mg/dL (8.5-10.1); CHLORIDE 97 mmol/L (98-107); CO2 26 mmol/L (21-32); GLUCOSE 95 mg/dL (74-106); POTASSIUM 3.6 mmol/L (3.5-5.1); SODIUM 134 mmol/L (136-145)
[2019-07-15 10:00] LABS: TROPONIN-I <0.06 ng/mL (<0.06)
[2019-07-15 10:26] LABS: ABSOLUTE NEUTROPHILS 2.6 thou/uL (1.4-8.2); PLATELET COUNT 89 thou/uL (150-400); PLATELET ESTIMATE NORMAL
[2019-07-15] MEDS ORDERED: LEVAQUIN 750 M750 MG PO (11:51)
[2019-07-15 12:07] VITALS: BP 165/98
--- NOTE | 2019-07-16 08:25 | EKG ---
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 : 1955 Requested By: Bola Joseph Order Number: [id number] MD: Pablito Naqvi Measurements Intervals [place] Rate: 70 P: NM: 122 QRS: -43 QRSD: 115 T: 16 QT: 487 QTc: 526 Interpretive Statements Atrial-paced rhythm LVH with IVCD, LAD and secondary repol abnrm Prolonged QT interval Compared to ECG 09/15/2018 15:11:47 Atrial pacing is now present Nonspecific change in the ST and T-wave segments Electronically Signed On 07-16-2019 8:24:22 PRINT COLOR OPERATOR by Pablito Naqvi [email or web address] <ELECTRONICALLY SIGNED> By: Pablito Naqvi MD, [facility] 07/16/19 0824 7 7 Pablito Naqvi MD, [facility] /EPI
== END 2019-07-15 12:16 | disposition home or self-care (01) ==
LOC: ER 09:01
PROVIDERS: Emergency Medicine
DX: J18.9 Pneumonia, unspecified organism (principal); E11.22 Type 2 diabetes mellitus with diabetic chronic kidney disease; I12.9 Hypertensive chronic kidney disease with stage 1 through stage 4 chronic kidney disease, or unspecified chronic kidney disease; N18.9 Chronic kidney disease, unspecified; I48.91 Unspecified atrial fibrillation; F32.9 Major depressive disorder, single episode, unspecified; Z87.898 Personal history of other specified conditions; Z88.1 Allergy status to other antibiotic agents; Z88.2 Allergy status to sulfonamides; Z88.8 Allergy status to other drugs, medicaments and biological substances

== ENCOUNTER 2019-11-09 23:34 | Inpatient (IN) | payer OTHER ==
[~2019-11-09] VITALS: Ht 157.5 cm; Wt 70.4 kg
--- NOTE | ~2019-11-09 | EMS ---
[facility] [address] [place] [address] EMS Patient Care Report Name: RAY DEMPSEY Room #: REG DEQUAN Menard#: [id number] Admission: 11/09/19 Attend Phys: Discharge: Date of : 51 Report #: [id number] THIS REPORT FOR: //name// Report Transmitted: 11/10/2019 01:42 EMS Care Summary [place], [place]/[facility] Incident [id number] @ 11/09/2019 23:08 Incident Location 1 BENSON Figueredo 11 Patient RAY DEMPSEY Female, 64 Years 1955 Patient Address [address] [place] [address] [address] [place] [address] Patient History Behavioral/Psychiatric Disorder,Hypertension (HTN),Pacemaker/AICD,Seizures,Gastro-Esophageal Reflux Disease (GERD),Arthritis,End Stage Renal Disease (ESRD),Hepatitis C (Without Hepatic Coma),Bipolar II Disorder,Anxiety,Atrial Fibrillation,Dialysis,Type 2 Diabetes, Patient Allergies Acetaminophen,Aspirin,Sulfa,Other drug allergy, Patient Medications Imitrex, Trileptal, Gabapentin, Hydralazine, Xanax, Effexor, Lasix, Zoloft, Seroquel, Oxycodone, Chief Complaint WEAKNESS Disposition Transported No Lights/[place] Reason Falls Transported To [facility] [address] [place] [address] EMS Patient Care Report Name: RAY DEMPSEY Room #: REG [facility]#: [id number] Admission: 11/09/19 Attend Phys: Discharge: Date of : 51 Report #: [id number] Narrative SCENE: ON ARRIVAL PT FOUND SITTING UPRIGHT IN WHEELCHAIR AT NURSES DESK. PT IS AWAKE AND ALERT WITH A GCS OF 15. PT APPEARS LETHARGIC. STAFF REPORTS PT HAS BEEN WEAK FOR TWO DAYS. PT ASSISTED ONTO EMS STRETCHER. AMBULANCE: VITAL MONITORED THORUGHOUT TRANSPORT. NO CHANGES IN PT STATUS EN ROUTE, Initial Vitals @23:28P: 79,R: 20,BP: 148/89,Pain: 2/10,GCS: 15,SpO2: 100,Revised Trauma: 12, @23:25P: 71,BP: 141/64,Pain: 2/10,GCS: 15, @23:18P: 90,R: 18,GCS: 15,Revised Trauma: 12, Assessments @23:18MENTAL:Other,Person Oriented,Event Oriented,Place Oriented,Time Oriented,SKIN:No Abnormalities,HEENT:Head/Face: No Abnormalities,Eyes: No Abnormalities,Neck/Airway: No Abnormalities,LUNG SOUNDS:General: No Abnormalities,Left Upper: No Abnormalities,Right Upper: No Abnormalities,Left Lower: No Abnormalities,Right Lower: No Abnormalities,ABDOMEN:General: No Abnormalities,Left Upper: No Abnormalities,Right Upper: No Abnormalities,Left Lower: No Abnormalities,Right Lower: No Abnormalities,PELVIS//GI:EXTREMITIES:Left Arm: No Abnormalities,Right Arm: No Abnormalities,Left Leg: No Abnormalities,Right Leg: No Abnormalities,PULSE:NEURO:No Abnormalities,@23:36MENTAL:Other,Place Oriented,Time Oriented,Person Oriented,Event Oriented,SKIN:No Abnormalities,HEENT:Head/Face: No Abnormalities,Eyes: No Abnormalities,Neck/Airway: No Abnormalities,LUNG SOUNDS:General: No Abnormalities,Left Upper: No Abnormalities,Right Upper: No Abnormalities,Left Lower: No Abnormalities,Right Lower: No Abnormalities,ABDOMEN:General: No Abnormalities,Left Upper: No Abnormalities,Right Upper: No Abnormalities,Left Lower: No Abnormalities,Right Lower: No Abnormalities,PELVIS//GI:No Abnormalities,EXTREMITIES:Left Arm: No Abnormalities,Right Arm: No Abnormalities,Left Leg: No Abnormalities,Right Leg: No Abnormalities,PULSE:NEURO:No Abnormalities, Impression Generalized Weakness Procedures @23:18ALS AssessmentResponse: UnchangedSucceeded@23:21StretcherResponse: Unchanged@23:24Saline Lock 0cc (20 ga) Site: Hand-RightResponse: UnchangedFailed Timeline 23:06,Call Received 23:06,Dispatch Notified [address] [address] EMS Patient Care Report Name: RAY DEMPSEY Room #: REG DEQUAN Menard#: [id number] Admission: 11/09/19 Attend Phys: Discharge: Date of : 51 Report #: [id number] 23:08,Dispatched 23:09,En Route 23:15,On Scene 23:18,At Patient 23:18,BP: 136/ M,PULSE: 90,RR: 18 R,SPO2: Ox,ETCO2: ,BG: ,PAIN: ,GCS: 15, 23:18,ALS Assessment,Response: UnchangedSucceeded, 23:21,Stretcher,Response: Unchanged 23:24,Sal[place] Lock 0cc 20 ga Site: Hand-Right,Response: UnchangedFailed, 23:25,BP: 141/64 M,PULSE: 71,RR: R,SPO2: Ox,ETCO2: ,BG: ,PAIN: 2,GCS: 15, 23:25,Depart Scene 23:28,BP: 148/89 M,PULSE: 79,RR: 20 R,SPO2: 100 Ox,ETCO2: ,BG: ,PAIN: 2,GCS: 15, 23:46,At Destination 00:03,Call Closed Disclaimer v1.1 Copyright 2020 [employer] This EMS Care Summary contains data elements from the applicable legal record (which may be displayed differently). It is designed to provide pertinent information for the following purposes: continuity of care, clinical quality, and state data reporting. The complete legal record is available to ED staff and administrators of the receiving hospital in [employer] Patient Tracker. All data is provided "as is."
[~2019-11-09 23:34] MED LIST changes: +LEVAQUIN 750 M750 MG PO
[2019-11-09 23:41] VITALS: BP 127/65
[2019-11-10] MEDS ORDERED: SEROQUEL 100 M100 MG PO (01:00)
[2019-11-10] MEDS ORDERED: LIDOCAINE IM ×2 (01:05)
[2019-11-10] MEDS ORDERED: PROBIOTIC250 MG PO (01:07)
[2019-11-10] MEDS ORDERED: ERTAPENEM1 GM IM (01:09)
[2019-11-10] MEDS ORDERED: GUAIFENESIN ER PO (01:11)
[2019-11-10] MEDS ORDERED: HUMALOG100 UNIT/1 SUBQ (01:13)
[2019-11-10] MEDS ORDERED: OXTELLAR XR300 MG PO (01:14)
[2019-11-10] MEDS ORDERED: ALPRAZOLAM PO (01:19)
[2019-11-10] MEDS ORDERED: BENZONATATE100 MG PO (01:22)
[2019-11-10 01:23] LABS: URINE BILIRUBIN NEGATIVE (Negative); URINE BLOOD NEGATIVE (Negative); URINE CLARITY CLEAR; URINE COLOR YELLOW; URINE GLUCOSE-RANDOM* NEGATIVE (Negative); URINE KETONES TRACE (Negative); URINE NITRITE-REFLEX NEGATIVE (Negative); URINE PROTEIN (DIPSTICK) 2+ (Negative); URINE SPECIFIC GRAVITY 1.015 (1.005-1.035); URINE UROBILINOGEN 0.2 E.U./dl (0.2-1.0)
[2019-11-10 01:23] LABS: HEMATOCRIT 32.3 % (37.0-47.0); HEMOGLOBIN 10.7 gm/dL (12.0-15.0); MCH 34.5 pg (26.0-34.0); MCV 104.7 fL (80.0-100.0); RBC 3.09 mil/uL (4.20-5.00); RDW 15.5 % (10.5-14.5); WBC 3.5 thou/uL (4.0-11.0)
[2019-11-10 01:24] LABS: URINE LEUKOCYTES-REFLEX 2+ (Negative)
[2019-11-10 01:27] LABS: CALCIUM 8.5 mg/dL (8.5-10.1); CREATININE 5.7 mg/dL (0.6-1.0); POTASSIUM 4.4 mmol/L (3.5-5.1)
[2019-11-10 01:29] LABS: BACTERIA-REFLEX 1-9 Few /HPF (None Seen); CASTS None Seen /LPF (None Seen); CRYSTALS None Seen /LPF (None Seen); MUCUS None Seen strn/LPF (None Seen); SQUAMOUS 4-10 Moderate /LPF (0-3); TRANSITIONAL EPITHEL CELL 0-3 Few /LPF (None Seen); URINE RBC 0-2 Rare /HPF (0-2); URINE WBC-REFLEX >25 Many /HPF (0-5)
[2019-11-10] MEDS ORDERED: SENNA PLUS TAB1 EACH PO (01:31)
[2019-11-10 01:32] LABS: ALBUMIN 3.1 g/dL (3.4-5.0); TOTAL BILIRUBIN 0.4 mg/dL (<0.1-1.0); TOTAL PROTEIN 8.3 g/dL (6.4-8.2)
[2019-11-10] MEDS ORDERED: IMITREX 50 MG T50 MG PO (01:34)
[2019-11-10] MEDS ORDERED: PROCARDIA XL60 MG PO (01:36)
[2019-11-10] MEDS ORDERED: RENAL-VITE TAB0.8 MG PO (01:55)
[2019-11-10 02:03] LABS: PLATELET COUNT 66 thou/uL (150-400)
[2019-11-10 02:12] LABS: ABSOLUTE NEUTROPHILS 2.1 thou/uL (1.4-8.2); MYELOCYTES 1 %
[2019-11-10 02:13] LABS: MACROCYTES 1+; PLATELET ESTIMATE DECREASED; TOXIC GRANULATION 1+
[2019-11-10 04:10] VITALS: BP 111/59
[2019-11-10 04:18] VITALS: BP 125/52
[2019-11-10 04:56] VITALS: BP 123/58
[2019-11-10 08:06] VITALS: BP 123/59
--- NOTE | 2019-11-10 10:23 | EKG ---
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: chay : 1955 Requested By: Bob Pappas Order Number: [id number] MD: Pablito Naqvi Measurements Intervals [place] Rate: 70 P: LA: 143 QRS: -50 QRSD: 126 T: 69 QT: 460 QTc: 497 Interpretive Statements Atrial-paced rhythm Left anterior hemiblock Nonspecific intraventricular conduction delay Compared to ECG 07/15/2019 09:18:46 Prolonged QT interval no longer present Electronically Signed On 11-10-2019 10:21:28 CDT by Pablito Naqvi [email or web address] <ELECTRONICALLY SIGNED> By: Pablito Naqvi MD, [facility] 11/10/19 1021 0038 0038 Pablito Naqvi MD, FAC /EPI
[2019-11-10 12:22] VITALS: BP 130/59
[2019-11-10 17:40] VITALS: BP 135/58
--- NOTE | 2019-11-10 17:45 | NUR ---
ASSUMED CARE OF PT AT 0700. PT ALERT AND ORIENTED X4 IN NO ACUTE DISTRESS. VOICING NO PARTICULAR COMPLAINTS. DIM/WHZ TO ASCULTATION. VITALS STABLE. GOOD APPETITE. INCONTINENT OF URINE. UNREMARKABLE ON TELEMETRY. PLANS FOR DIALYSIS TOMORROW. CALLS APPROPRIATELY. RICH.
--- NOTE | 2019-11-10 23:24 | NUR ---
TOOK OVER CARE. PT RESTING IN BED. FEMALE EXT CATH. BED ALARM ON. PT REQUESTED SNACK AND PROVIDED. PT IS SOA WITH REPOSITIONING. SHE CAN REPOSITION SELF.
[2019-11-11 05:12] VITALS: BP 115/50
--- NOTE | 2019-11-11 07:21 | HC ---
[facility] [place] [address] [place] [address] CONSULTATION Name: RAY DEMPSEY Room #: 358-P ADM IN M.R.#: [id number] Admission: 11/10/19 Attend Phys: Jose Luis Babin MD Discharge: Date of : 51 Report #: [id number] THIS REPORT FOR: cc: Mejia Álvarez MD,Mejia Philippe,Demetrio Jacob MD ~ CC: Jose Luis Álvarez DATE OF SERVICE: 11/10/2019 REASON FOR CONSULTATION: End-stage renal disease requiring chronic hemodialysis. HISTORY OF PRESENT ILLNESS: This is a 64-year-old female who lives at [facility]. She has end-stage renal disease and is a chronic hemodialysis patient for about the past 6 years. Apparently, she fell at [place] and was very weak. She was brought in through the Emergency Room. She was admitted to the hospital. She has been placed on COVID-19 rule out. She denies any cough, dyspnea, fever. No fever has been documented. In talking to the patient, she dialyzes on Monday, Monday, Monday basis at [facility]. She is a bit sketchy on details and at times, appears somewhat confused. She thinks her last dialysis went okay. She knows that she sometimes cramps during dialysis. She says over the last few weeks, she has been getting progressively weaker, leading to this fall that she had overnight. PAST MEDICAL HISTORY: Longstanding hypertension, although she has been hypotensive of late from what I can tell. She is still on some nifedipine and also volume removal with dialysis, which may be contributing to some of her weakness. She has some diabetes mellitus, history of hepatitis C, intermittent atrial fibrillation. She has had a history of polypharmacy and in fact, during her hospitalization a year ago, recommendations were to massively decrease her medication list. She still comes in with a very lengthy list. MEDICATIONS: As listed from the Emergency Room include furosemide 40 mg b.i.d., levothyroxine 0.15 mg daily, gabapentin 200 mg b.i.d., hydralazine 100 mg q.i.d. (unknown why in a patient with low blood pressure she is on that), oxycodone p.r.n., Seroquel 100 mg daily, Ertapenem 1 gram intramuscularly daily for this urinary tract infection she has had, insulin, oxcarbazepine 450 mg daily, alprazolam 0.25 mg b.i.d., nifedipine 60 mg daily, renal vitamin daily, Effexor 150 mg daily, famotidine 20 mg daily, Imitrex 50 mg at bedtime, Renvela 1600 mg with meals as a phosphate binder and numerous p.r.n. medications. ALLERGIES: Listed to ASPIRIN, ACETAMINOPHEN, SULFA, TRIMETHOPRIM, and GEODON. [address] [address] CONSULTATION Name: ARY DEMPSEY Eusebia Room #: 358-P ADM IN M.R.#: [id number] Admission: 11/10/19 Attend Phys: Jose Luis Babin MD Discharge: Date of : 51 Report #: [id number] FAMILY HISTORY: Unavailable. SOCIAL HISTORY: The patient lives at [facility] and has lived there for quite some time. REVIEW OF SYSTEMS: She says she has been getting weaker over the past several weeks if not longer, she is very nonspecific in details. Again, she denies cough, dyspnea, fever. PHYSICAL EXAMINATION: GENERAL: A 64-year-old female, awake, mildly disoriented, responsive. VITAL SIGNS: Blood pressure 123/59, heart rate 70, temperature 97.5, oxygen saturation 97%. HEENT: Shows pupils are equal and reactive. Sclerae nonicteric. Oral mucosa is moist. NECK: Veins are not distended. Neck is supple. CHEST: Clear bilaterally. HEART: Regular rate and rhythm. ABDOMEN: Has active bowel sounds, is soft, nontender at this time. EXTREMITIES: She has no peripheral edema. She has a nice left upper arm AV fistula in place with good flow. LABORATORY DATA: Sodium 138, potassium 4.4, chloride 98, bicarbonate 28, BUN 69, creatinine 5.7, glucose 197. AST 67, ALT 37, calcium 8.5, total protein 8.3, albumin 3.1. White count 3.5, hemoglobin 10.7, hematocrit 32.3, platelets 66,000. A COVID-19 test is pending. Urinalysis, specific gravity 1.015, pH 6.5, 2+ protein, trace ketones, greater than 25 white cells. ASSESSMENT: 1. End-stage renal disease. She has been on dialysis for 6 years. She will need dialysis tomorrow. Her electrolytes are fine. Her volume is fairly good.. Blood pressure is on the low end of the spectrum. I am concerned that some of her weakness is of her medication related to blood pressure medications. She still is being on massive doses of hydralazine as well as some nifedipine. With being on dialysis for 6 years, her blood pressure control should be all through volume maintenance. We will stop her nifedipine and her hydralazine and shoot for a mid-range blood pressure. We will schedule her dialysis for tomorrow. 2. Recurring urinary tract infections. Culture pending, been placed on broad spectrum IV antibiotics. 3. Longstanding diabetes mellitus. 4. Anemia of end-stage renal disease. [facility] [address] [place] [address] CONSULTATION Name: RAY DEMPSEY Room #: 358-P ADM IN M.R.#: [id number] Admission: 11/10/19 Attend Phys: Jose Luis Babin MD Discharge: Date of : 51 Report #: [id number] 5. Polypharmacy continued to be a problem with a list that was given. We will work on cutting back on that as able. <ELECTRONICALLY SIGNED> By: Demetrio Philippe MD 11/11/19 0721 1100 1214 Demetrio Philippe MD /nt
[2019-11-11 08:25] VITALS: BP 116/47
[2019-11-11 08:47] LABS: HEMATOCRIT 28.5 % (37.0-47.0); HEMOGLOBIN 9.5 gm/dL (12.0-15.0); MCHC 33.4 g/dL (28.0-37.0); MCV 104.9 fL (80.0-100.0); RBC 2.72 mil/uL (4.20-5.00); RDW 15.5 % (10.5-14.5); WBC 2.6 thou/uL (4.0-11.0)
[2019-11-11 08:58] LABS: CALCIUM 8.1 mg/dL (8.5-10.1); MAGNESIUM 2.6 mg/dL (1.8-2.4); POTASSIUM 5.4 mmol/L (3.5-5.1)
[2019-11-11 09:00] LABS: CREATININE 7.7 mg/dL (0.6-1.0)
[2019-11-11 11:46] VITALS: BP 130/78
--- NOTE | 2019-11-11 14:24 | 2DMMODE ---
[facility] [place] [address] 2 D/M-MODE ECHOCARDIOGRAM Name: RAY DEMPSEY Room #: 358-P ADM IN M.R.#: [id number] Admission: 11/10/19 Attend Phys: Heavenly Bang MD Discharge: Date of : 53 Report #: [id number] THIS REPORT FOR: cc: Mejia Álvarez MD, Srinath MD Lundgren,Pablito Carpio MD [facility] ~ APPROVED REPORT Study performed: 11/11/2019 13:16:34 EXAM: Comprehensive 2D, Doppler, and color-flow Echocardiogram Patient Location: Bedside Room #: 358 Status: routine BSA: 1.74 HR: 80 bpm BP: 116/47 mmHg Rhythm: NSR Other Information Study Quality: Fair Technically limited study due to patient flat on back having dialysis. No cooperation. Indications Orthopnea, weakness, Hx: CHF (EF 2017- 30%), Afib, Pacemaker, HTN, DM. 2D Dimensions RVDd: 37.26 mm IVSd: 12.00 (7-11mm) LVOT Diam: 20.25 (18-24mm) LVDd: 44.95 mm PWd: 12.00 (7-11mm) Ascending Ao: 34.01 (22-36mm) LVDs: 35.58 (25-40mm) Aortic Root: 37.10 mm Volumes Left Atrial Volume (Systole) Single Plane 4CH: 56.21 mL Single Plane 2CH: 68.35 mL LA ESV Index: 39.00 mL/m2 Aortic Valve AoV Peak Lamine.: 1.66 m/s AO Peak Gr.: 11.07 mmHg LVOT Max P.64 mmHg [facility] [address] [place] [address] 2 D/M-MODE ECHOCARDIOGRAM Name: RAY DEMPSEY Eusebia Room #: 358-[facility]#: [id number] Admission: 11/10/19 Attend Phys: Heavenly Bang, Discharge: Date of : 51 Report #: [id number] LVOT Max V: 1.08 m/s PETER Vmax: 2.08 cm2 Mitral Valve E/A Ratio: 0.8 MV Decel. Time: 211.62 ms MV E Max Lamine.: 0.76 m/s MV A Lamine.: 0.97 m/s MV PHT: 61.37 ms IVRT: 83.04 ms Pulmonary Valve PV Peak Lamine.: 1.02 m/s PV Peak Gr.: 4.13 mmHg Pulmonary Vein P Vein S: 0.59 m/s P Vein A: 0.26 m/s P Vein D: 0.33 m/s P Vein A Dur.: 96.9 msec P Vein S/D Ratio: 1.79 Tricuspid Valve TR Peak Lamine.: 2.41 m/s RAP Estimate: 5.00 mmHg TR Peak Gr.: 23.31 mmHg PA Pressure: 28.00 mmHg Left Ventricle The left ventricle is normal size. There is normal LV segmental wall motion. Mild concentric left ventricular hypertrophy. Left ventricular systolic function is normal. LVEF is 50-55%. Mild diastolic dysfunction is present (impaired relaxation pattern). Right Ventricle The right ventricle is normal size. The right ventricular systolic function is normal. Pacemaker lead is present in the right ventricle. Atria The left atrium size is normal. The right atrium size is normal. Aortic Valve Aortic valve is mildly calcified. No aortic regurgitation is present. There is no aortic valvular stenosis. Mitral Valve Mild mitral annular calcification. Calcified papillary muscle head. There is no mitral valve regurgitation noted. No evidence of mitral [facility] [address] [place] [address] 2 D/M-MODE ECHOCARDIOGRAM Name: RAY DEMPSEY Room #: 358-P [facility] IN [facility]#: [id number] Admission: 11/10/19 Attend Phys: Heavenly Bang, Discharge: Date of : 51 Report #: [id number] valve stenosis. Tricuspid Valve The tricuspid valve is normal in structure. Mild tricuspid regurgitation. Estimated PAP is 30mmHg. Pulmonic Valve Pulmonic valve is not well visualized. There is no pulmonic valvular regurgitation. Great Vessels The aortic root is normal in size. The ascending aorta is normal in size. IVC is normal in size and collapses >50% with inspiration. Pericardium There is no pericardial effusion. <Conclusion> Left ventricular systolic function is normal. There is normal LV segmental wall motion. LVEF is 50-55%. Mild diastolic dysfunction Aortic valve is mildly calcified. No aortic regurgitation or stenosis Mild mitral annular calcification. Calcified papillary muscle head. No mitral valve regurgitation Mild tricuspid regurgitation. Estimated pulmonary artery pressure of 30mmHg. There is no pericardial effusion. <ELECTRONICALLY SIGNED> By: Pablito aNqvi MD, [facility] 11/11/19 142 21 142 Pablito Naqvi MD, FACC /INF
--- NOTE | 2019-11-11 15:20 | NUR ---
INITIAL ASSESSMENT: Received consult. LOKESH reviewed chart and spoke with nursing and attending physician. Pt was admitted from [facility] due to UTI/weakness/recent falls. Pt is in Enhanced Isolation. First COVID-19 test was negative. Pt with hx of ESRD and is on dialysis. Pt's info states she lives at [facility]. LOKESH spoke with [facility], who state pt has since moved to [facility]. LOKESH spoke with pt via phone. Introduced role of SW. Pt appears to be alert to self only. Pt was unsure of why she came to the hospital. Pt states she uses both a walker and w/c. LOKESH offered to contact pt's family to provide update. Pt agreeable with LOKESH contacting her dtr, Emilia Jorgesnen. LOKESH spoke with Emilia Jorgensen via phone. introduced role of LOKESH. Emilia Jorgensen states pt has been at [facility] for about two months. Pt's family has not been able to see pt due to COVID-19 restrictions. Pt used to be on breathing treatments and O2. Pt is not currently on any O2. Emilia Jorgensen confirmed that plan is for pt to return to [facility] when medically stable. Pt does dialysis at [facility] on MWF. LOKESH spoke with Ciara at [facility], who states they do require 2 negative COVID-19 tests prior to pt returning. LOKESH updated pt's nurse. Will need a second COVID-19 test ordered. production control planner to fax clinical info to [facility] tomorrow for review. LOKESH is following to assist as needed with discharge planning.
[2019-11-11 16:39] VITALS: BP 122/52
--- NOTE | 2019-11-11 19:21 | NUR ---
ASSUMED PATIENT CARE AT 0700. A/O X3. CONFUSED. TOLERTAED HD TODAY. 2ND COVID NEGATIVE. NO SOBNOTED. PROGRESSING TOWARDS POC GOALS.
[2019-11-11 20:15] VITALS: BP 138/57
[2019-11-11 20:30] VITALS: BP 139/57
--- NOTE | 2019-11-12 03:16 | NUR ---
RECIEVED PATIENT FROM 3W AROUND 2029. PATIENT ARRIVED TO UNIT VIA BED ACCOMPANIED BY CAREER TECHNICAL EDUCATION TEACHER AND 3W PERSONEL. PATIENT ALERT AND ORIENTED X3, PERSON, PLACE AND TIME. IS NOT SURE HOW SHE GOT HERE OR WHY SHE IS HERE. CONFUSED AT TIMES TO THE TIME. WOKE UP AND THOUGHT THAT IT WAS MORNING AND MONDAY. REMAINS ON 1.5L FLUID RESTRICTION. ACCUCHECK WAS 85, NO COVERAGE NEEDED. WHEN UP GETS DIZZY AND WEAK. NEEDS TO HAVE AT LEAST 2 OR 3 TO GET UP TO BSC. SLEPT OFF AND ON DURING NIGHT.
[2019-11-12 04:20] VITALS: BP 138/70
[2019-11-12 08:30] VITALS: BP 152/92
[2019-11-12] MEDS ORDERED: OXCARBAZEPINE300 MG PO (11:20)
--- NOTE | 2019-11-12 12:04 | NUR ---
ASSUMED CARE AT 0700. PT ALERT, BUT APPEARS TO BE CONFUSED ABOUT THE SITUATION OF HER BEING AT THIS HOSPITAL AND WHEN AND HOW SHE GOT HERE. AT TIMES SHE APPEARS TO BE SEEING THINGS THAT ARE NOT THERE AND MUMBLING ABOUT THINGS THAT DON'T MAKE SENSE. UNSURE OF HER BASELINE MENTAL STATUS, WILL MONITOR. VSSA/RA. NO COMPLAINTS, WONDERING WHEN SHE WILL BE ABLE TO GO. TOLERATING PO, BLOOD SUGARS LOW TODAY. TREATING WITH PO, WILL MONITOR. PIV WITHOUT COMPLICATIONS. FISTULA WITHOUT COMPLICATIONS, DIALYSIS YESTERDAY. PT HAVING DIFFICULTY WITH GETTING UP AND TO BSC. WILL MONITOR.
--- NOTE | 2019-11-12 14:27 | NUR ---
CARE TEAM INDICATED THAT PT IS MEDICALLY STABLE TO DISHCARGE TO [facility] SKILLED THIS DAY. CHART COPY ORDERED. ORDERS FAXED. PT AND FAMILY AWARE AND AGREEABLE. TRANSPORT ARRANGED FOR 1600. DC INFO SENT TO [facility]. REPORT TO BE CALLED TO . NO OTHER CM INTERVENTION INDICATED. CASE CLOSED.
--- NOTE | 2019-11-12 16:27 | NUR ---
REPORT GIVEN TO MAIDA AT [facility] FOR TRANSPORT BACK TO FACILITY. PIV DISCONTINUED WITH SOME BLEEDING BUT NO OTHER PROBLEMS. HELD PRESSURE UNTIL STOPPED AND PLACED BAND AID. PT TRANSPORTED VIA WHEELCHAIR ALERT AND ORIENTED.
--- NOTE | 2019-11-12 16:35 | HC ---
[facility] [place] [address] CONSULTATION Name: RAY DEMPSEY Room #: 444-P [facility] IN M.R.#: [id number] Admission: 11/10/19 Attend Phys: Heavenly Bang MD Discharge: 11/12/19 Date of : 51 Report #: [id number] THIS REPORT FOR: cc: Mejia Álvarez MD, Srinath MD Althoff,Chicho Shultz MD ~ CC: Heavenly Álvarez DATE OF SERVICE: 11/11/2019 CHIEF COMPLAINT: Decubitus ulceration. HISTORY OF PRESENT ILLNESS: This is a 64-year-old female patient who was admitted to the hospital with history of hypertension; end-stage renal disease, on hemodialysis; depression; bipolar disorder, who had an unwitnessed fall. She was noted to have UTI and type 2 diabetes mellitus. She was noted by someone to possibly have decubitus ulcers and I have been asked to see her with regard to wound care. The patient cannot provide much information about ____ general pruritus, but denies any pressure ulcers at this time. PAST MEDICAL HISTORY: Positive for history of urinary tract infection; weakness; falls; end-stage renal disease, requiring hemodialysis; hypertension; type 2 diabetes mellitus; hepatitis C; depression; bipolar disorder; atrial fibrillation; hypothyroidism; and thrombocytopenia. SOCIAL HISTORY: Positive for past alcohol use. Previous smoker. No recreational drug use. FAMILY HISTORY: Noncontributory. ALLERGIES: ACETAMINOPHEN, ASPIRIN, SULFA, TRIMETHOPRIM AND GEODON. MEDICATIONS: Include Lasix, Synthroid, Neurontin, hydralazine, oxycodone, Seroquel, Xylocaine, probiotic, ertapenem, guaifenesin, Humalog, Oxtellar, alprazolam, senna, Procardia-XL, diphenhydramine, Effexor, Pepcid, Imitrex, MiraLax, Zofran, Renvela. REVIEW OF SYSTEMS: CONSTITUTIONAL: Denies fever, chills, weight loss. NEUROLOGICAL: The patient denies focal weakness, numbness or tingling. EYES: The patient denies visual changes, redness, or drainage. ENT: The patient denies earache, nasal drainage or sore throat. CARDIOVASCULAR: The patient denies chest pain, palpitations or diaphoresis. PULMONARY: The patient denies cough or shortness of breath. GASTROINTESTINAL: The patient denies nausea, vomiting, diarrhea or abdominal [address] [address] CONSULTATION Name: RAY DEMPSEY Room #: 444-P [facility] IN [facility].#: [id number] Admission: 11/10/19 Attend Phys: Heavenly Bang MD Discharge: 11/12/19 Date of : 51 Report #: [id number] pain. GENITOURINARY: The patient denies frequency or urgency. Denies dysuria. ORTHOPEDIC: The patient complains of generalized pruritus. Denies any other ulceration of range of motion or rash. Other systems in a 14-point review of systems are negative. PHYSICAL EXAMINATION: VITAL SIGNS: At this time include temperature 36.5, pulse 71, respiratory rate 16, blood pressure 130/78. GENERAL: This is a chronically ill-appearing female patient who appears to be in minimal distress. HEENT: Head normocephalic. Nose and throat are clear. NECK: Supple. LUNGS: Diminished. HEART: Regular rhythm. ABDOMEN: Bowel sounds are present. Soft, nontender. EXTREMITIES: Lower extremity demonstrates some mild areas of dry skin. Her sacral, gluteal, ischial regions, heels, back, scapula, elbows were all examined. I find no evidence of any open ulceration, no pressure injuries noted at this time. CLINICAL IMPRESSION: 1. Pruritus related to dry skin, likely compounded by underlying renal disease, on hemodialysis. 2. Urinary tract infection. 3. End-stage renal disease, requiring hemodialysis. 4. Hypertension. 5. Type 2 diabetes mellitus. 6. Depression and bipolar disorder. RECOMMENDATIONS: At this point in time, the patient does not have any open ulcerations or wounds to speak of. We will recommend continuation of current medications and nutritional support. She may benefit from a moisturizer to her skin as she has no active skin wounds or ulcerations at this time. We will sign off and certainly be available should she develop any issues later on. I appreciate being asked to see her in consultation. <ELECTRONICALLY SIGNED> By: Chicho Ladd MD 11/12/19 1635 1633 [id number] Chicho Ladd MD /nt
== END 2019-11-12 16:34 | DRG 689 ==
LOC: ER 23:34 → 3W 11-10 03:50 → EROBS 11-10 03:50 → 3W 11-10 04:21 → 4S 11-11 20:36
PROVIDERS: Emergency Medicine; Internal Medicine; Nurse Practitioner Family; ADMIT Internal Medicine
PROC: 5A1D70Z Performance of Urinary Filtration, Intermittent, Less than 6 Hours Per Day (ICD-10-PCS; principal; 2019-11-11)
DX: N39.0 Urinary tract infection, site not specified (principal); N18.6 End stage renal disease; N17.9 Acute kidney failure, unspecified; E87.0 Hyperosmolality and hypernatremia; E87.2 Acidosis; I12.0 Hypertensive chronic kidney disease with stage 5 chronic kidney disease or end stage renal disease; E86.0 Dehydration; F03.90 Unspecified dementia, unspecified severity, without behavioral disturbance, psychotic disturbance, mood disturbance, and anxiety; I48.91 Unspecified atrial fibrillation; Z79.01 Long term (current) use of anticoagulants; K21.9 Gastro-esophageal reflux disease without esophagitis; E03.9 Hypothyroidism, unspecified; D63.1 Anemia in chronic kidney disease; L29.9 Pruritus, unspecified; D69.6 Thrombocytopenia, unspecified; M19.90 Unspecified osteoarthritis, unspecified site; B19.20 Unspecified viral hepatitis C without hepatic coma; F31.9 Bipolar disorder, unspecified; E11.22 Type 2 diabetes mellitus with diabetic chronic kidney disease; F41.9 Anxiety disorder, unspecified; Z88.2 Allergy status to sulfonamides; Z88.8 Allergy status to other drugs, medicaments and biological substances; Z99.2 Dependence on renal dialysis; Z90.710 Acquired absence of both cervix and uterus; Z79.4 Long term (current) use of insulin; Z79.82 Long term (current) use of aspirin; Z79.899 Other long term (current) drug therapy; Z03.818 Encounter for observation for suspected exposure to other biological agents ruled out; W18.30XA Fall on same level, unspecified, initial encounter; Y93.9 Activity, unspecified; Y92.89 Other specified places as the place of occurrence of the external cause; Y99.8 Other external cause status
CPT/HCPCS: 10102; 10879; 32100

== ENCOUNTER 2019-12-16 03:34 | Emergency (ER) | payer OTHER ==
[~2019-12-16] VITALS: Ht 160 cm; Wt 89.3 kg
--- NOTE | ~2019-12-16 | EMS ---
[address] [address] EMS Patient Care Report Name: RAY DEMPSEY Room #: REG [facility]#: [id number] Admission: 12/16/19 Attend Phys: Discharge: Date of : 51 Report #: [id number] THIS REPORT FOR: //name// Report Transmitted: 12/16/2019 04:56 EMS Care Summary [place], [place]/[facility] Incident [id number] @ 12/16/2019 03:05 Incident Location [address] Patient RAY DEMPSEY Female, 64 Years 1955 Patient Address [address] [place] [address] Patient History Behavioral/Psychiatric Disorder,Hypertension (HTN),Pacemaker/AICD,Seizures,Gastro-Esophageal Reflux Disease (GERD),Arthritis,End Stage Renal Disease (ESRD),Hepatitis C (Without Hepatic Coma),Bipolar II Disorder,Anxiety,Atrial Fibrillation,Dialysis,Type 2 Diabetes, Patient Allergies Acetaminophen,Aspirin,Sulfa,Other drug allergy, Patient Medications Oxycodone, Seroquel, Zoloft, Hydralazine, Imitrex, Xanax, Effexor, Gabapentin, Lasix, Trileptal, Chief Complaint back and shoulder pain post fall Disposition Transported No Lights/[place] Dispatch Reason Falls Transported To [address] [address] EMS Patient Care Report Name: RAY DEMPSEY Room #: REG [facility]#: [id number] Admission: 12/16/19 Attend Phys: Discharge: Date of : 51 Report #: [id number] Narrative Initially dispatched with Pumper 36 for a fall. Upon EMS arrival patient was found laying supine on the floor, appearing uncomfortable, showing no obvious signs of deformity or fracture, CAOx4. Nurse on scene reports that the patient is supposed to ambulate with assistance. Patient reports that she was trying to walk herself to the restroom when her "knees gave out" and she fell to the floor. She complains of back pain and left shoulder pain. Assessment found patient able to move all extremities without difficulty. She was placed on a sheet, picked up, moved to the stretcher, secured, and loaded into the ambulance. Patient was transported to [facility] without incident. Full report was given to RN prior to signing this document. Initial Vitals @03:25P: 74,R: 20,BP: 184/86,Pain: 9/10,GCS: 15,SpO2: 96,Revised Trauma: 12, Assessments @03:17MENTAL:No Abnormalities,SKIN:No Abnormalities,HEENT:Head/Face: No Abnormalities,Eyes: No Abnormalities,Neck/Airway: No Abnormalities,LUNG SOUNDS:General: No Abnormalities,Left Upper: No Abnormalities,Right Upper: No Abnormalities,Left Lower: No Abnormalities,Right Lower: No Abnormalities,ABDOMEN:General: No Abnormalities,Left Upper: No Abnormalities,Right Upper: No Abnormalities,Left Lower: No Abnormalities,Right Lower: No Abnormalities,PELVIS//GI:No Abnormalities,EXTREMITIES:Left Arm: ANGELA,Right Arm: No Abnormalities,Left Leg: No Abnormalities,Right Leg: No Abnormalities,PULSE:NEURO:No Abnormalities, Impression Injury Procedures @03:17ALS AssessmentResponse: UnchangedSucceeded Timeline 03:04,Call Received 03:04,Dispatch Notified 03:05,Dispatched 03:07,En Route 03:12,On Scene 03:16,At Patient 03:17,ALS Assessment,Response: UnchangedSucceeded, 03:25,BP: 184/86 M,PULSE: 74,RR: 20 R,SPO2: 96 Ox,ETCO2: ,BG: ,PAIN: 9,GCS: 15, 03:26,Depart Scene 03:29,At Destination 03:40,Call Closed Disclaimer [facility] [address] [place] [address] EMS Patient Care Report Name: RAY DEMPSEY Room #: REG [facility]#: [id number] Admission: 12/16/19 Attend Phys: Discharge: Date of : 53 Report #: [id number] v1.1 Copyright 2020 [employer] This EMS Care Summary contains data elements from the applicable legal record (which may be displayed differently). It is designed to provide pertinent information for the following purposes: continuity of care, clinical quality, and state data reporting. The complete legal record is available to ED staff and administrators of the receiving hospital in [employer] Patient Tracker. All data is provided "as is."
[~2019-12-16 03:34] MED LIST changes: +ALPRAZOLAM PO; +BENZONATATE100 MG PO; +ERTAPENEM1 GM IM; +GUAIFENESIN ER PO; +HUMALOG100 UNIT/1 SUBQ; +LIDOCAINE IM; +OXTELLAR XR300 MG PO; +PROBIOTIC250 MG PO; +PROCARDIA XL60 MG PO; +RENAL-VITE TAB0.8 MG PO; +SENNA PLUS TAB1 EACH PO; +SEROQUEL 100 M100 MG PO
[2019-12-16 04:53] LABS: BASOPHILS 0.7 % (0.0-2.0); EOSINOPHILS 4.1 % (0.0-3.0); HEMATOCRIT 32.8 % (37.0-47.0); HEMOGLOBIN 10.8 gm/dL (12.0-15.0); LYMPHOCYTES 16.7 % (24.0-44.0); MCH 33.9 pg (26.0-34.0); MCV 102.5 fL (80.0-100.0); MONOCYTES 10.5 % (1.0-8.0); PLATELET COUNT 91 thou/uL (150-400); RDW 15.3 % (10.5-14.5)
[2019-12-16 05:04] LABS: CALCIUM 8.7 mg/dL (8.5-10.1); CREATININE 7.3 mg/dL (0.6-1.0); POTASSIUM 5.1 mmol/L (3.5-5.1)
[2019-12-16 05:10] LABS: ALBUMIN 2.7 g/dL (3.4-5.0); TOTAL BILIRUBIN 0.5 mg/dL (0.2-1.0); TOTAL PROTEIN 7.9 g/dL (6.4-8.2)
[2019-12-16 06:19] VITALS: BP 149/73
--- NOTE | 2019-12-16 07:53 | EKG ---
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 : 1955 Requested By: Bob Vazquez Order Number: [id number] MD: Pablito Naqvi Measurements Intervals [place] Rate: 70 P: [place]: 161 QRS: -51 QRSD: 120 T: 12 QT: 470 QTc: 508 Interpretive Statements Atrial-paced rhythm Left anterior fascicular block Poor R wave progression Baseline wander in lead(s) V3 Compared to ECG 11/10/2019 00:38:34 No significant change was found Electronically Signed On 12-16-2019 7:52:01 CDT by Pablito Naqvi [email or web address] <ELECTRONICALLY SIGNED> By: Pablito Naqvi MD, FAC 12/16/19 0752 0348 0348 Pablito Naqvi MD, FAC /EPI
== END 2019-12-16 06:20 ==
LOC: ER 03:34
PROVIDERS: Emergency Medicine
DX: S09.90XA Unspecified injury of head, initial encounter (principal); M25.512 Pain in left shoulder; G89.29 Other chronic pain; M54.9 Dorsalgia, unspecified; E03.9 Hypothyroidism, unspecified; I48.91 Unspecified atrial fibrillation; I12.0 Hypertensive chronic kidney disease with stage 5 chronic kidney disease or end stage renal disease; E11.22 Type 2 diabetes mellitus with diabetic chronic kidney disease; N18.6 End stage renal disease; Z90.710 Acquired absence of both cervix and uterus; Z95.0 Presence of cardiac pacemaker; Z87.891 Personal history of nicotine dependence; Z79.899 Other long term (current) drug therapy; Z88.6 Allergy status to analgesic agent; Z88.2 Allergy status to sulfonamides; Z88.8 Allergy status to other drugs, medicaments and biological substances

== ENCOUNTER 2019-12-30 18:42 | Inpatient (IN) | payer OTHER ==
[~2019-12-30] VITALS: Ht 160 cm; Wt 74.0 kg
--- NOTE | ~2019-12-30 | HC ---
[facility] [address] [place] [address] CONSULTATION Name: RAY DEMPSEY Room #: 459-P ADM IN M.R.#: [id number] Admission: 12/30/19 Attend Phys: Cristiane Husain Discharge: Date of : 51 Report #: [id number] THIS REPORT FOR: cc: Mejia Álvarez MD,Mejia Buckley,Jonas Galicia MD ~ CC: Cristiane Álvarez REASON FOR CONSULTATION: End-stage renal disease. REASON FOR PRESENTATION: Mental status changes. HISTORY OF PRESENT ILLNESS: This is a 64-year-old with end-stage renal disease, maintained on hemodialysis every Monday, Monday and Monday. Apparently, the patient had some confusion, mental status changes on her dialysis yesterday. This was terminated and the patient was sent upstairs to the [facility] facility part of her [facility]. She started to have some involuntary jerking of her upper extremities and was admitted for further evaluation and treatment. Next, when interviewed this morning, the patient was confused and not able to provide me with the details of her history. However, she is well known to me from previous admissions. She is a dialysis patient who has been in our facility for the last couple of months. She carries a diagnosis of bipolar disorder. She is currently maintained on numerous antipsychotic and psychotropic medications. PAST MEDICAL HISTORY: Obtained from the medical chart 1. End-stage renal disease, maintained on hemodialysis every Monday, Monday and Monday. 2. Bipolar disorder. 3. Diabetes mellitus. 4. Hypertension. 5. Hepatitis C. 6. Atrial fibrillation. 7. Cardiomyopathy. PAST SURGICAL HISTORY: 1. Hysterectomy. 2. AV fistula. 3. Pacemaker insertion. SOCIAL HISTORY: Former smoker. She resides at the [facility]. FAMILY HISTORY: Unobtainable given the patient's current mental status. ALLERGIES: LISTED SULFA AND ASPIRIN. [facility] [address] [place] [address] CONSULTATION Name: RAY DEMPSEY Room #: 459-P [facility] IN .R.#: [id number] Admission: 12/30/19 Attend Phys: Cristiane Husain Discharge: Date of : 51 Report #: [id number] REVIEW OF SYSTEMS: Unobtainable given the patient's current mental status. PHYSICAL EXAMINATION: VITAL SIGNS: Temperature 36.7, blood pressure is 166/72. HEAD AND NECK: No jugular venous distention. CHEST: Bilateral crackles. CARDIOVASCULAR: No rub detected. Systolic murmur present. ABDOMEN: Soft, nontender. EXTREMITIES: Lower extremities, +1 edema. Upper extremities, there is a left-sided AV fistula. LABORATORY DATA: Revealed hemoglobin of 9.4, white blood cell count 3.6. Sodium 134, potassium 5.8, BUN is 149, creatinine is 7.7. Ammonia is 85. IMPRESSION AND PLAN: 1. End-stage renal disease. 2. Mental status changes with myoclonus. 3. Bipolar disorder. 4. Hyperkalemia. 5. We will arrange for the patient to have emergent dialysis given her hyperkalemia and mental status changes. 6. Resume her outpatient medications. However, I strongly recommend to discontinue all psychotropic medications. She is suffering from polypharmacy probably contributing to her current presentation. 7. We will defer those issues to the primary team along with the neurological and psychiatric team. By: 1049 1315 Jonas Buckley MD /nt
[2019-12-30 19:04] LABS: ABSOLUTE NEUTROPHILS 2.5 thou/uL (1.4-8.2); BASOPHILS 0.4 % (0.0-2.0); EOSINOPHILS 3.2 % (0.0-3.0); HEMATOCRIT 28.1 % (37.0-47.0); HEMOGLOBIN 9.4 gm/dL (12.0-15.0); LYMPHOCYTES 14.7 % (24.0-44.0); MCH 34.1 pg (26.0-34.0); MCHC 33.6 g/dL (28.0-37.0); MCV 101.5 fL (80.0-100.0); MONOCYTES 11.7 % (1.0-8.0); PLATELET COUNT 81 thou/uL (150-400); RBC 2.77 mil/uL (4.20-5.00); RDW 15.8 % (10.5-14.5); WBC 3.6 thou/uL (4.0-11.0)
[2019-12-30 19:44] LABS: CALCIUM 8.6 mg/dL (8.5-10.1); CREATININE 7.5 mg/dL (0.6-1.0); MAGNESIUM 2.2 mg/dL (1.8-2.4); POTASSIUM 5.6 mmol/L (3.5-5.1)
[2019-12-30 20:50] LABS: URINE BILIRUBIN NEGATIVE (Negative); URINE BLOOD 2+ (Negative); URINE CLARITY SL CLOUDY; URINE COLOR YELLOW; URINE GLUCOSE-RANDOM* 1+ (Negative); URINE KETONES NEGATIVE (Negative); URINE NITRITE-REFLEX NEGATIVE (Negative); URINE PROTEIN (DIPSTICK) 2+ (Negative); URINE UROBILINOGEN 0.2 E.U./dl (0.2-1.0)
[2019-12-30 20:51] LABS: URINE LEUKOCYTES-REFLEX 1+ (Negative)
[2019-12-30 21:19] LABS: SQUAMOUS 4-10 Moderate /LPF (0-3); URINE RBC 3-10 Few /HPF (0-2); WBC CLUMPS Few (None Seen)
[2019-12-30 21:20] LABS: CASTS None Seen /LPF (None Seen); CRYSTALS None Seen /LPF (None Seen); MUCUS 4-6 Moderate strn/LPF (None Seen)
[2019-12-30 21:23] LABS: INR 1.1; PROTIME 10.9 Seconds (9.3-11.4)
[2019-12-30 21:32] LABS: ALBUMIN 2.7 g/dL (3.4-5.0); DIRECT BILIRUBIN 0.2 mg/dL (<0.1-0.2); TOTAL BILIRUBIN 0.5 mg/dL (0.2-1.0)
[2019-12-30] MEDS ORDERED: ALPRAZOLAM 0.0.25 M1 PO (21:56)
[2019-12-30 21:57] VITALS: BP 150/70
[2019-12-30] MEDS ORDERED: ROXICODONE5 M2 PO (21:57)
[2019-12-30] MEDS ORDERED: REQUIP 0.25 M0.25 MG PO (21:57)
[2019-12-30] MEDS ORDERED: RENVELA800 MG PO (21:57)
--- NOTE | 2019-12-30 22:02 | NUR ---
ED NURSE CALLED TO GIVE REPORT, WAS TOLD NURSE WILL HAVE TO CALL BACK
--- NOTE | 2019-12-30 22:19 | NUR ---
ED NURSE CALLED SECOND TIME TO GIVE REPORT WAS AGAIN TOLD THAT RECEIVING NURSE IS STUCK IN A ROOM AND WILL CALL ME BACK
[2019-12-30 23:16] VITALS: BP 157/78
--- NOTE | 2019-12-31 01:15 | NUR ---
Pt arrived from ED at 5 via cart accompanied by staff. A/OX3,but able to make needs known,c/o weakness. Pt has jerking on extremities reports it started after happy hour and SNF;states she doesn't remember what she drunk. Pt is up to BSC w/Assist of ,unsteady gait noted. C/o pain to Left shoulder,order for pain meds obtained and administered with relief reported. VSS. Pt has a fistula on LUE with bruit/thrill,dialysis days ,, reports she got dialyzed Monday and states she completed her session unlike SNF report. Fall precauitons implemented and pt agreeable with calling for help. Resting quietly at this time with no distress noted. Pt has a pacemaker and is A-Paced on telemetry. Will continue to monitor pt.
[2019-12-31 04:20] VITALS: BP 166/72
[2019-12-31 05:37] LABS: CREATININE 7.7 mg/dL (0.6-1.0); MAGNESIUM 2.3 mg/dL (1.8-2.4); POTASSIUM 5.8 mmol/L (3.5-5.1)
[2019-12-31 07:19] VITALS: BP 163/61
--- NOTE | 2019-12-31 08:10 | EKG ---
[facility] [place] [address] [place] [address] ELECTROCARDIOGRAM REPORT Name: RAY DEMPSEY Room #: 459- ADM IN M.R.#: [id number] Admission: 12/30/19 Attend Phys: Cristiane Husain Discharge: Date of : 51 Report #: [id number] THIS REPORT FOR: cc: Mejia Álvarez MD, Srinath MD Lundgren,Pablito Carpio MD [facility] ~ THIS REPORT FOR: //name// [facility] ED Test Date: 2019-12-30 Test Time: 19:25:02 Pat Name: RAY DEMPSEY Department: Room: 45 Gender: F Provider Relations Representative: : 1955 Requested By: Efrain Thomas Order Number: [id number] MD: Pablito Naqvi Measurements Intervals [place] Rate: 70 P: [place]: 131 QRS: -46 QRSD: 114 T: 55 QT: 459 QTc: 496 Interpretive Statements Atrial-paced rhythm Left anterior fascicular block Left ventricular hypertrophy Borderline prolonged QT interval Compared to ECG 12/16/2019 03:48:29 No significant change was found Electronically Signed On 12-31-2019 8:10:09 CDT by Pablito Naqvi [email or web address] <ELECTRONICALLY SIGNED> By: Pablito Naqvi MD, FAC 12/31/19 0810 24 24 Pablito Naqvi MD, [facility] /EPI
--- NOTE | 2019-12-31 11:01 | NUR ---
morning meds that were held were per dr mcgill request. dr perera will see pt to assess potential dc
--- NOTE | 2019-12-31 11:05 | NUR ---
Assess due to consult received. Admit from SNF with AMS, UTI, encephalopathy, and elevated ammonia levels. Hx ESRD/dialysis, diabetes, bipolar. Wt appears up about 24 lb from October. On lasix. A1C is pending, BG is 319. Attempt to interview pt, drowsy and kept falling asleep mid sentence. Will follow intake trends. Low nutrition risk at this time.
--- NOTE | 2019-12-31 15:34 | NUR ---
PT ADMITTED RELATED TO AMS,UTI,ELEVATED AMMONIA. CM REVIEWED CHART AND SPOKE WITH CARE TEAM. CM MET WITH PT AT BEDSIDE THIS DAY. PT APPEARES TO BE A&O X4. CM ROLE INTRODUCED. PT INDICATED SHE HAD BEEN AT [facility] AUDIT CONSULTANT. PT INDICATED SHE DOES DIALYSIS AT [facility]. 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 PT INDICATED SHE PLANS TO RETURN TO [facility] ONCE MEDICALLY STABLE. CM CALLED AND SPOKE WITH PT'S DTR ALBERTO. SHE CONFIRMED THE ABOVE. CM TO FAX CLINICAL UPDATES TO FACILITY AND [facility]. CM TO FOLLOW INDICATED WITH DC PLANNING. PT GOING FOR DIALYSIS THIS DAY SHE HAD A SHORT RUN YESTERDAY.
[2019-12-31 16:28] LABS: BE(vivo) -1.8 mmol/L (-2 to +3); HCO3 21.3 mmol/L (22.0-26.0); PCO2 30.3 mmHg (35.0-45.0); PO2 105.4 mmHg (80.0-100.0); pH 7.464 (7.360-7.450); sO2 98.2 % (92.0-98.0)
[2019-12-31 16:36] LABS: HEMATOCRIT 32.7 % (37.0-47.0); HEMOGLOBIN 10.8 gm/dL (12.0-15.0); MCHC 33.2 g/dL (28.0-37.0); MCV 102.5 fL (80.0-100.0); RBC 3.19 mil/uL (4.20-5.00); RDW 16.8 % (10.5-14.5); WBC 4.3 thou/uL (4.0-11.0)
[2019-12-31 16:53] LABS: ANION GAP 16 mmol/L (7-16); BUN 46 mg/dL (7-18); CALCIUM 8.9 mg/dL (8.5-10.1); CHLORIDE 96 mmol/L (98-107); CO2 22 mmol/L (21-32); GLUCOSE 201 mg/dL (74-106); POTASSIUM 4.3 mmol/L (3.5-5.1); SODIUM 134 mmol/L (136-145)
[2019-12-31 16:54] LABS: CREATININE 3.5 mg/dL (0.6-1.0)
[2019-12-31 16:57] LABS: ALBUMIN 2.9 g/dL (3.4-5.0); MAGNESIUM 1.9 mg/dL (1.8-2.4); SGOT 158 U/L (15-37); SGPT 99 U/L (30-65); TOTAL BILIRUBIN 0.6 mg/dL (0.2-1.0); TROPONIN-I <0.06 ng/mL (<0.06)
[2019-12-31 17:02] VITALS: BP 148/56
--- NOTE | 2019-12-31 17:10 | NUR ---
PT WAS IN DIALYSIS AND TELEMETRY STARTED ALARMING PT HEART RATE IN THE 150S AFIB. CALLED OVER TO TEACHING ARTIST TO INFORM ABOUT HR AND ASK ABOUT PT CONDITION. HD RN STATED THAT HE HAD STARTED LOWERING THE AMOUNT HE WAS PULLING OFF. AT 1600 THE PT HEART RATE WAS STILL IN THE 150S 160S, SO THIS RN WALKED OVER TO DIALYSIS ROOM TO CHECK ON PT. WHEN THIS RN ARRIVED THE HD RN WAS HOLDING PRESSURE ON PT FISTULA, THEY HAD PULLED THE PT OFF HD EARLY. BLOOD PRESSURE WAS IN THE 96/47 HR IN THE 150S AFIB. HD RN STATES THAT PT HAD BECOME LESS RESPONSIVE THROUGHOUT TREATMENT. PT DOES NOT FOLLOW COMMANDS OR RESPOND PURPOSEFULLY TO VERBAL STIMULI. PT WILL OPEN EYES BUT NOT ON COMMAND. PT WAS SITTING ON SIDE OF BED THIS MORNING EATING, SHE WAS CONFUSED BUT ALERT AND TALKING. PAGED DR CHRISTINA ABOUT CHANGE IN PT CONDITION, HE CAME TO SEE PT. HE REQUESTED TRANSFER TO ICU. CALLED NURSING SUPERVISIOR, NO BEDS AVAILABLE AT THIS TIME, DR CHRISTINA AND RN IN ROOM BP 98/45 HR 164 RESP 32 SPO2 92% PT PLACED ON 2L NC. STAT LABS AND A RAPID RESPONSE CALLED AT 1615. PT CONVERTED BACK TO SR AT 1620. PT WAS THEN TRANSFERRED TO ROOM [address] CHRISTINA AND A REEVALUATION FOR ICU NEED TO BE DONE WHEN BED AVAILABLE. BEDSIDE REPORT GIVEN TO VICTOR HUGO AQUINO. ATTEMPTED TO CALL FACILITY TO FIND OUT PT CODE STATUS THERE AND PT FAMILY TO LET THEM KNOW ABOUT TRANSFER, NO RESPONSE TO EITHER CALL.
--- NOTE | 2019-12-31 18:13 | NUR ---
Pt. in A-Fib with RVR-SHELLFISH GROWER activated, see flowsheet
--- NOTE | 2019-12-31 18:37 | NUR ---
PT TRANSFERED FROM [facility], PT AMS, EYE ROLLED UP ON ARRIVAL, AT THIS TIME PT EYE OPEN AND TRACK, MOUTHING WHAT LOOK LIKE WORDS WITHOUT VOICE. RESTLESS MOVEMENTS. PT LACTIC ACID 5.4 WITH ORDERS PLACED BY DR CHRISTINA. ALBUMIN STARTED PER ORDERS. CT OF CHEST, ABD, AND PELVIC COMPLETED. PER RIKKI PT IS TO TRANSFER TO ICU AFTER SHIFT CHANGE. BED LOCKED, CALL LIGHT IN REACH BUT STAFF TO ANTICIPATE NEEDS. NSR ON TELE. 2L NASAL CANULA. KEPT NPO DUE TO AMS. CONTINUE TO MONITOR
[2019-12-31 20:04] VITALS: BP 153/63
[2019-12-31 23:03] VITALS: BP 124/40
--- NOTE | 2019-12-31 23:11 | NUR ---
2200 PATIENT NON VERBAL UNTIL NOW. WILL SAY NAME. TRACKS WITH EYES. DENIES COMPLAINTS OF PAIN. REPORT GIVEN TO DORITA AQUINO IN ICU AND PATIENT TRANSFERED TO [facility]. TRANSFERED CARE.
[2020-01-01] VITALS (26 sets, daily range): BP systolic 94–178; BP diastolic 34–142
[2020-01-01 02:06] LABS: GLYCOHEMOGLOBIN (HGB A1C) 7.5 % (4.8-5.6)
--- NOTE | 2020-01-01 06:16 | NUR ---
Patient arrived to ICU from CCU around 2330. Patient is only oriented to self and either follows commands or says very clearly that she doesn't want to. Patient is on 2L NC for comfort and VS remained stable during this shift. Patient remained only oriented to self throughout this shift.
--- NOTE | 2020-01-01 07:41 | EKG ---
[facility] [place] [address] [place] [address] ELECTROCARDIOGRAM REPORT Name: RAY DEMPSEY Room #: 243- ADM IN M.R.#: [id number] Admission: 12/30/19 Attend Phys: Bill Payton MD Discharge: Date of : 51 Report #: [id number] THIS REPORT FOR: cc: Mejia Álvarez MD, Srinath MD Lundgren,Pablito Carpio MD [facility] ~ THIS REPORT FOR: //name// [facility] Test Date: 2019-12-31 Test Time: 16:26:19 Pat Name: RAY DEMPSEY Department: Room: 243 Gender: F Forensic Ballistics Expert: Eloy DUNBAR : 1955 Requested By: Bill Payton Order Number: [id number] MD: Pablito Naqvi Measurements Intervals [place] Rate: 84 P: 41 [place]: 182 QRS: -44 QRSD: 103 T: 73 QT: 438 QTc: 518 Interpretive Statements Sinus rhythm Left anterior fascicular block Abnormal R-wave progression, late transition LVH with secondary repolarization abnormality Prolonged QT interval Compared to ECG 12/30/2019 19:25:02 Early repolarization now present Atrial-paced complex(es) or rhythm no longer present Electronically Signed On 01-01-2020 7:41:28 CDT by Pablito Naqvi [email or web address] <ELECTRONICALLY SIGNED> By: Pablito Naqvi MD, [facility] 01/01/20 0741 1626 1626 Pablito Naqvi MD, [facility] /EPI
--- NOTE | 2020-01-01 07:44 | NUR ---
ORDERS FOR EVAL AND TREAT HOWEVER Pt TRANSFERRED TO ICU. WILL PLACE ON HOLD AND AWAIT NEW ORDERS WHEN APPROPRIATE
--- NOTE | 2020-01-01 15:28 | NUR ---
PT'S MENTAL STATUS HAS IMPROVED TODAY. IS NOW A&O X 2. DIALYSIS AT BEDSIDE TODAY. SPEECH DID EVAL TODAY AND RECOMMENDED PUREED DIET WITH NECTAR THICK LIQUIDS. PT REFUSED ALL AFTERNOON MEDICATIONS. PT WAS EDUCATED ON IMPORTANCE OF BEING COMPLIANT WITH MEDS/CARE. ATTEMPTED TO GIVE MAG-CITRATE TO PT, HOWEVER SHE ONLY ACCEPTED A FEW SPOONFULS. UNABLE TO COMMUNICATE WITH FAMILY TODAY, PT WAS UPDATED AND EDUCATED ON POC. WILL CONTINUE TO MONITOR.
--- NOTE | 2020-01-01 19:53 | NUR ---
Called [employer]YW[employer] FINISH[employer] FOREM[employer] (Yola Fritz) and reported that patient is possibly having extrapyramidal side effects as she has been noted to continuously have leg jerking and lip smacking and came into the hospital with complaints of involuntary jerking. I asked Yola if she wanted to order Cogentin to help with these side effects. Received order to consult psychiatry. Called and left message on the voicemail giving all information and asked for a return phone call. Awaiting to hear back from the answering service or MD.
[2020-01-02 04:03] VITALS: BP 103/70
--- NOTE | 2020-01-02 06:26 | NUR ---
Received report and assumed patient care at 1900. Patient just finished having 1 L taken off during HD. Patient remains only oriented to self and continues to have leg jerking and lip smacking. Called and left message for new consult with Dr. Pierre. Never received a return call. Patient complained of pain once and oxycodone was given. VS remained stable throughout this shift and no acute events occurred. Patient awaiting transfer to .
[2020-01-02 06:29] LABS: HEMATOCRIT 30.3 % (37.0-47.0); HEMOGLOBIN 9.9 gm/dL (12.0-15.0); MCHC 32.7 g/dL (28.0-37.0); MCV 103.7 fL (80.0-100.0); RBC 2.92 mil/uL (4.20-5.00); WBC 3.5 thou/uL (4.0-11.0)
[2020-01-02 06:32] LABS: CALCIUM 9.6 mg/dL (8.5-10.1); CREATININE 3.1 mg/dL (0.6-1.0); POTASSIUM 3.5 mmol/L (3.5-5.1)
[2020-01-02 10:33] VITALS: BP 135/53
--- NOTE | 2020-01-02 11:40 | NUR ---
discussed during los pt to move out of icu and will possible be ready to dc back to [facility] and resume [facility] over the weekend. updates to be sent to [facility] and [facility].
--- NOTE | 2020-01-02 14:35 | NUR ---
FAXED CLINICAL UPDATE TO [facility] RECEIVED CONFIRMATION AND LEFT MSG WITH MOISÉS IN ADM OF POSS DC OVER WEEKEND.
[2020-01-02 15:00] VITALS: BP 166/75
--- NOTE | 2020-01-02 16:54 | NUR ---
PT. ARRIVED AT FLOOR AFTER 1000; PT. ALERT; AWAKE; ORIENTED TO PERSON; C/O PAIN OVER RUE WITH MOVEMENT; APACED ON THE MONITOR; DURING LUCH POOR APPETITE; PM MEDICATIONS GIVEN; REQUESTED TO EAT PUDDIN; ABLE TO SWALLOW CRUSH PILLS; TOLERATED WELL; MONITORING; C/O PAIN OVER L. HIP DURING AFTERNOON; PRN PAIN MEDICATION NOT DUE; MONITORING; ASSESSMENT CHARGED; FOLLOWING POC; WILL PASS ON REPORT;
[2020-01-02 20:00] VITALS: BP 171/67
[2020-01-03] VITALS (7 sets, daily range): BP systolic 102–159; BP diastolic 44–72
[2020-01-03 01:06] LABS: HEP B SURFACE Ab(ANTI-HBS Reactive (()); HEPATITIS B SURFACE AG Negative (Negative)
--- NOTE | 2020-01-03 03:24 | NUR ---
ASSUMED CARE OF PATIENT AT 1900. PATIENT C/O PAIN IN RIGHT HAND. RIGHT HAND APPEARS BRUISED AND SLIGHTLY SWOLLEN. PATIENT ALSO C/O PAIN IN LEFT SHOULDER/UPPER ARM AND STATES THAT IT IS A CHRONIC ISSUE. ADMINISTERED PRN PAIN MEDICATION ORDERED. PATIENT IS FOGETFUL AND ADMITS THAT SHE CAN'T REMEMBER THINGS LIKE BEFORE. PATIENT HAD TO BE ORIENTED TO TIME/DAY. PATIENT WAS RESTLESS THROUGHOUT NIGHT AND DID NOT SLEEP WELL.
[2020-01-03 05:07] LABS: HEMOGLOBIN 9.6 gm/dL (12.0-15.0); MCH 33.5 pg (26.0-34.0); MCHC 32.2 g/dL (28.0-37.0); MCV 103.9 fL (80.0-100.0); RBC 2.88 mil/uL (4.20-5.00); RDW 16.2 % (10.5-14.5); WBC 3.8 thou/uL (4.0-11.0)
[2020-01-03 05:13] LABS: CALCIUM 8.9 mg/dL (8.5-10.1); POTASSIUM 3.6 mmol/L (3.5-5.1)
--- NOTE | 2020-01-03 20:11 | NUR ---
RECEIVED PT'S CARE AROUND 0710; PT. ON BED; ALERT; DURING AM ASSESSMENT ALERT TO PERSON, PLACE & TIME; C/O PAIN OVER L. SHOULDER & OVER BLE; PRN MEDICATION GIVEN AROUND 0600 BY RADIOISOTOPE TECHNICIAN NURSE; AM MEDICATIONS GIVEN; PT. ABLE TO EAT MEALS BY HERSELF; ST NOTIFIED; NEW DIET ORDERS ON PLACED; POOR APPETITE; PT. ENCOURAGE TO EAT; THROUGH THE DAY PT. HAD BLACK STOOLS; HOSPITALIST & GI NOTIFIED; NO NEW ORDERS; MONITORING; DIALYSIS ON THE MORNING; TOLERATED WELL; HAD 5 BMs THROUGH THE DAY; ASSESSMENT CHARGED; FOLLOWING POC; PASSED ON REPORT;
--- NOTE | 2020-01-04 03:46 | NUR ---
ASSUMED CARE OF PATIENT AT 1900. PATIENT HAD NO C/O PAIN THROUGH NOC. PATIENT DID STATE THAT HER LEGS "FELT LIKE THEY WERE ON FIRE". BLE HAVE DUSKY APPEARANCE AND COOL TO TOUCH. PEDAL PULSES WEAK. PATIENT OFFERED SNACK AT HS AND WAS ABLE TO FEED HERSELF AND ATE 100%. PATIENT APPEARED TO REST BETTER THIS NOC COMPARED TO PREVIOUS NOC SHIFT. PATIENT IS PROGRESSING SLOWLY TOWARDS GOALS.
[2020-01-04 04:00] VITALS: BP 127/65
[2020-01-04 07:51] VITALS: BP 117/60
[2020-01-04 13:56] VITALS: BP 106/59
[2020-01-04 17:58] VITALS: BP 119/51
--- NOTE | 2020-01-04 18:02 | NUR ---
ASSESSMENTS AND INTERVENTIONS DOCCUMENTED. NO MAJOR CONCERNS THROUGH OUT SHIFT. PATIENT UPSET ABOUT PUREED DIET. LASIX PO HELD BY RN DUE TO THE PATIENT BEING ANURIC. PATIENT IS PROGRESSING TOWARDS GOALS AT THIS TIME EVIDENCE BY BEING LESS DROWSY AND MORE ALERT.
[2020-01-04 19:50] VITALS: BP 99/55
[2020-01-05 04:00] VITALS: BP 118/52
--- NOTE | 2020-01-05 04:31 | NUR ---
ASSUMED CARE 1900. PT ALERT AND ORIENTED BUT FORGETFUL. C/O GENERALIZED PAIN. VITALS STABLE. PT INTERMITTENTLY CONFUSED. REFUSED HER EVENING LACTOLOSE DOSE YESTERDAY. DENIES CHEST PAIN. AV PACED ON THE MONITOR. DENIES SOB. WILL CONTINUE TO MONITOR AND FOLLOW POC.
[2020-01-05 05:28] LABS: HEMOGLOBIN 10.5 gm/dL (12.0-15.0); MCH 34.4 pg (26.0-34.0); MCHC 32.8 g/dL (28.0-37.0); MCV 104.9 fL (80.0-100.0); RBC 3.04 mil/uL (4.20-5.00); RDW 16.3 % (10.5-14.5); WBC 6.1 thou/uL (4.0-11.0)
[2020-01-05 05:42] LABS: ALBUMIN 2.5 g/dL (3.4-5.0); PHOSPHORUS 7.1 mg/dL (2.5-4.9); POTASSIUM 3.9 mmol/L (3.5-5.1)
[2020-01-05 05:43] LABS: CREATININE 6.1 mg/dL (0.6-1.0)
[2020-01-05 07:30] VITALS: BP 134/44
[2020-01-05 11:30] VITALS: BP 142/62
[2020-01-05 15:20] VITALS: BP 122/42
--- NOTE | 2020-01-05 16:00 | NUR ---
ASSESSMENT DOCUMENTED, ALERT AND ORIENTED. FORGETFUL AT TIMES. MEDICATED FOR GENERALIZED PAIN X1. VSS AND AFEBRILE. AND WILL CONTINUE WITH POC.
[2020-01-05 20:47] VITALS: BP 153/70
--- NOTE | 2020-01-06 03:26 | NUR ---
NO CONCERNS OVERNIGHT. PT REFUSED HER NOC LACTOLOSE DUE TO DIARRHEA. DENIES PAIN. NOTED TO HAVE DUSKY UPPER AND LOWER EXTREMITIES. VITALS STABLE. WILL CONTINUE TO MONITOR AND FOLLOW POC.
[2020-01-06 05:12] VITALS: BP 91/48
[2020-01-06 07:30] VITALS: BP 142/56
[2020-01-06 11:20] VITALS: BP 103/43
[2020-01-06] MEDS ORDERED: OXCARBAZEP300 MG/5 M PO (12:19)
[2020-01-06] MEDS ORDERED: LACTULOSE20 GM/30 M PO (12:20)
[2020-01-06] MEDS ORDERED: PROTONIX40 M1 PO (12:21)
[2020-01-06] MEDS ORDERED: LINEZOLID600 MG PO (12:30)
[2020-01-06] MEDS ORDERED: MIDODRINE HCL 55 M1 PO (12:30)
[2020-01-06 13:50] VITALS: BP 146/77
[2020-01-06 15:20] VITALS: BP 150/69
--- NOTE | 2020-01-06 17:27 | NUR ---
tenative plan dc to [facility] today. At this time COVID test not returned for review. Updated dtr and sp with Stacy at [facility].
--- NOTE | 2020-01-06 18:22 | NUR ---
ASSUMMED PT CARE AT APPROXIMATELY 0700. PT A&O X3. ASSESSMENT CHARTED. FALL PRECAUTIONS IN PLACE. PT DENIES HAVING CHEST PAIN. PT DENIES HAVING SOB. PT DENIES HAVING ACUTE PAIN. PT HAD DIALYSIS TODAY. EDUCATED PT ABOUT POC. ENCOURAGED PT TO EAT AND DRINK. PT DID NOT WANT TO EAT PUREED DIET. DIET ORDER CHANGED. AWAITING COVID RESULTS. PLAN IS FOR PT TO DISCHARGE TOMORROW TO FACILITY. PT HYPOTENSIVE THROUGHOUT DIALYSIS. PT'S HYPOTENSION RESOLVED AFTER DIALYSIS. NO MEDICATION INTERVENTION. VITAL SIGNS STABLE. BLOOD SUGARS STABLE. PT UP TO CHAIR THROUGHOUT SHIFT. PT COMFORTABLE. PT DENIES HAVING FURTHER CONCERNS.
[2020-01-06 19:39] VITALS: BP 125/34
[2020-01-06 23:06] LABS: HBsAG-EMPLOYEE EXPOSURE Negative (Negative); HCV AB-EMPLOYEE EXPOSURE >11.0 (0.0-0.9)
[2020-01-07 00:19] VITALS: BP 111/43
--- NOTE | 2020-01-07 03:52 | NUR ---
RECIEVED CARE OF THIS PATIENT AT 1900. PATIENT ALERT AND ORIENTED X4 WITH FORGETFULNESS. HAD DIALYSIS YESTERDAY. HAS FISTULA IN LUPPER ARM. HAS GOOD BRUIT AND THRILL. ACCUCHECK WAS 283. RECIEVED 6 UNITS LISPRO INSULIN. DENIES PAIN. HAS FLAT AFFECT AND SEEMS ANXIOUS ABOUT WHAT IS GOING TO HAPPEN NEXT. PATIENT HAS PACEMAKER AND IS A-PACED. SLEPT OFF AND ON DURING NIGHT IN RECLINER.
[2020-01-07 04:47] LABS: ALBUMIN 2.9 g/dL (3.4-5.0); DIRECT BILIRUBIN 0.2 mg/dL (<0.1-0.2); TOTAL BILIRUBIN 0.6 mg/dL (0.2-1.0); TOTAL PROTEIN 8.3 g/dL (6.4-8.2)
[2020-01-07 05:14] VITALS: BP 109/42
[2020-01-07 07:33] VITALS: BP 135/57
--- NOTE | 2020-01-07 11:20 | NUR ---
BEING DISCHARGED BACK TO [facility] TODAY. [facility]THIAS [facility] ARRANGED VAN FOR 1200. SALINE LOCK, TELE DISCONTINUED. REPORT CALLED TO THE [facility]; TOLD THEM PATIENT NEGATIVE FOR COVIDL
--- NOTE | 2020-01-07 16:20 | NUR ---
Patient to discharge today to [facility]. COVID test faxed. DC orders rec. [facility] van transport for 1200. Notfied dtr of dc. Chart copied. Rn called report no further needs
== END 2020-01-07 11:49 | DRG 441 ==
LOC: ER 18:42 → ICU 21:35 → 4W 21:35 → EROBS 21:35 → 4W 23:04 → 2N 12-31 16:43 → ICU 12-31 22:46 → 2N 01-02 10:19
PROVIDERS: Emergency Medicine; Hospitalist; Nurse Practitioner; Nurse Practitioner Family; ADMIT Internal Medicine; ATTEND Internal Medicine
PROC: 5A1D70Z Performance of Urinary Filtration, Intermittent, Less than 6 Hours Per Day (ICD-10-PCS; principal; 2019-12-31)
DX: K72.90 Hepatic failure, unspecified without coma (principal); G92 Toxic encephalopathy; N18.6 End stage renal disease; E43 Unspecified severe protein-calorie malnutrition; N39.0 Urinary tract infection, site not specified; E87.2 Acidosis; I48.19 Other persistent atrial fibrillation; I12.0 Hypertensive chronic kidney disease with stage 5 chronic kidney disease or end stage renal disease; I42.9 Cardiomyopathy, unspecified; K74.60 Unspecified cirrhosis of liver; B19.20 Unspecified viral hepatitis C without hepatic coma; D69.6 Thrombocytopenia, unspecified; E11.22 Type 2 diabetes mellitus with diabetic chronic kidney disease; E03.9 Hypothyroidism, unspecified; F32.9 Major depressive disorder, single episode, unspecified; E87.5 Hyperkalemia; D53.9 Nutritional anemia, unspecified; I48.0 Paroxysmal atrial fibrillation; K52.9 Noninfective gastroenteritis and colitis, unspecified; Z79.891 Long term (current) use of opiate analgesic; Z90.49 Acquired absence of other specified parts of digestive tract; Z91.81 History of falling; Z90.710 Acquired absence of both cervix and uterus; Z95.0 Presence of cardiac pacemaker; Z79.899 Other long term (current) drug therapy; Z88.2 Allergy status to sulfonamides; Z88.8 Allergy status to other drugs, medicaments and biological substances; Z87.891 Personal history of nicotine dependence; Z03.818 Encounter for observation for suspected exposure to other biological agents ruled out; Z79.01 Long term (current) use of anticoagulants
CPT/HCPCS: 10045; 10078; 10081; 10203; 32100

== ENCOUNTER 2020-02-21 22:22 | Inpatient (IN) | payer OTHER ==
[~2020-02-21] VITALS: Ht 160 cm; Wt 83.0 kg
[~2020-02-21 22:22] MED LIST changes: +ALPRAZOLAM 0.0.25 M1 PO; +LACTULOSE20 GM/30 M PO; +LINEZOLID600 MG PO; +MIDODRINE HCL 55 M1 PO; +OXCARBAZEP300 MG/5 M PO; +PROTONIX40 M1 PO; +QUETIAPINE FUM150 MG PO; +REQUIP 0.25 M0.25 MG PO; +ROXICODONE5 M2 PO; -SEROQUEL 100 M100 MG PO
[2020-02-21 23:54] LABS: HEMATOCRIT 20.2 % (37.0-47.0); RBC 1.95 mil/uL (4.20-5.00)
[2020-02-21 23:56] LABS: HEMOGLOBIN 6.8 gm/dL (12.0-15.0); MCH 34.7 pg (26.0-34.0); MCHC 33.6 g/dL (28.0-37.0); MCV 103.5 fL (80.0-100.0); PLATELET COUNT 93 thou/uL (150-400); RDW 16.5 % (10.5-14.5); WBC 2.9 thou/uL (4.0-11.0)
[2020-02-21 23:57] LABS: APTT 23.5 Seconds (24.5-32.8); PROTIME 10.2 Seconds (9.3-11.4)
[2020-02-22] VITALS (7 sets, daily range): BP systolic 107–164; BP diastolic 36–73
[2020-02-22 01:01] LABS: CALCIUM 8.9 mg/dL (8.5-10.1); CREATININE 3.7 mg/dL (0.6-1.0); POTASSIUM 4.4 mmol/L (3.5-5.1)
[2020-02-22 01:07] LABS: ALBUMIN 2.6 g/dL (3.4-5.0); TOTAL BILIRUBIN 0.4 mg/dL (0.2-1.0); TOTAL PROTEIN 7.5 g/dL (6.4-8.2)
[2020-02-22 01:43] LABS: ABSOLUTE NEUTROPHILS 2.1 thou/uL (1.4-8.2); ANISOCYTOSIS 1+; MACROCYTES 1+; NUCLEATED RBCS 1 /100WBC; PLATELET ESTIMATE DECREASED; POIKILOCYTOSIS 1+; POLYCHROMASIA 1+
--- NOTE | 2020-02-22 02:31 | NUR ---
Called to give report, phone rings but no answer over 5 minutes let phone ring
--- NOTE | 2020-02-22 05:31 | NUR ---
VSS-AFEBRILE. C/O GENERALIZED ALL OVER BODY PAIN, PARTIAL RELIEF NOTED WITH IV FENTANYL. ALERT AND ORIENTED X 4, LUNGS CLEAR/DIMINISHED IN ALL MONTIEL BILATERALLY. TOLERATING ICE CHIPS WITH NO REPORTED N/V. FALL PRECAUTIONS IN PLACE, CALLS APPROPRIATELY FOR ANY NEEDED ASSISTANCE.
--- NOTE | 2020-02-22 13:09 | NUR ---
ASSUMED CARE AT 0700. PATIENT IS ALERT AND ORIENTEDX4. PATIENT SALAS, COLOR IS ASHEN. PATIENT HGB 6.8. PATIENT IS NPO. PROTONIX GTT INFUSING AT 25CC/H. PATIENT TO GET 1 UNIT OF BLOOD TODAY. BLOOD STARTED AT 1000. LUNGS ARE CLEAR ABD IS SOFT WITH BSX4. PATIENT IS DIALYSIS PATIENT AND HAS ACCESS ON LEFT UPPER ARM. S.L. INTAKE IN RIGHT AC WITH 20GA JELCO. FALL AND SAFETY PROTOCOLS IN PLACE. NO C/O PAIN AT THIS TIME. WILL CONTINUE TO MONITER.
--- NOTE | 2020-02-22 13:57 | NUR ---
TO GI LAB PER BED FOR EGD. PROTONIX GTT INFUSING AT 25 CC/HR. PER IV IN RIGHT AC. WILL CONTINUE TO MONITER. UPON HER RETURNE.
--- NOTE | 2020-02-22 14:07 | HC ---
[facility] [place] [address] CONSULTATION Name: RAY DEMPSEY Room #: 463-P ADM IN M.R.#: [id number] Admission: 02/22/20 Attend Phys: Jose Luis Babin MD Discharge: Date of : 51 Report #: [id number] THIS REPORT FOR: cc: Dayo Mckeon MD,Dayo Jeong,Fenrando Hannah MD ~ CC: Jose Luis Mckeon GASTROINTESTINAL CONSULTATION HISTORY OF PRESENT ILLNESS: The patient is a very pleasant female, who presents from her halfway facility with several days of melena. This is a significant change from her normal bowel pattern. She denies significant abdominal pain or other GI symptoms including hematemesis. She carries with her diagnosis of end-stage renal disease, thrombocytopenia, hypertension, diabetes, hepatitis C, cirrhosis, bipolar, depression, AFib with a pacemaker, cardiomyopathy. She has had a surgical history of hysterectomy, cholecystectomy. SOCIAL HISTORY: Positive for remote smoking and minimal alcohol use. She apparently gained hepatitis C from her who was an IV drug user. MEDICATION LIST ON PRESENTATION: Includes Lasix 40 mg p.o. b.i.d., Synthroid, Seroquel, senna, diphenhydramine, Effexor, MiraLax, Zofran, oxycodone. REVIEW OF SYSTEMS: Negative for weight loss, weakness or fatigue. She denies head, eyes, ears, nose or throat complaints. She denies chest pain, chest palpitation, chest pressure, cough, shortness of breath, wheezing, genitourinary, musculoskeletal or neuropsychiatric complaints otherwise. OBJECTIVE: VITAL SIGNS: Afebrile. Vital signs are stable. HEENT: Not examined. ABDOMEN: Soft, nondistended, nontender. EXTREMITIES: No clubbing, cyanosis or edema. NEUROLOGIC: Grossly intact. RECTAL: Deferred. PERTINENT LABORATORY DATA: Reviewed include hemoglobin 6.8, MCV 103.5, platelet count 93, white count 2.9. INR 1.0. Serum chemistry notable for total bilirubin 0.4, AST 42, ALT 41. ASSESSMENT: In summary, the patient has evidence of significant blood loss anemia. She has chronic anemia secondary to chronic renal failure and suspected pancytopenia secondary to cirrhosis. Her CT abdomen and pelvis from 08/2018 reveals evidence of cirrhosis and splenomegaly, but no ascites. We will proceed [address] [address] CONSULTATION Name: RAY DEMPSEY Room #: 463-P [facility] IN .R.#: [id number] Admission: 02/22/20 Attend Phys: Jose Luis Babin MD Discharge: Date of : 51 Report #: [id number] with upper endoscopy to exclude variceal bleeding and treated with banding if necessary. I would continue IV PPI drip and start octreotide if indeed there is evidence of varices. The patient is currently stable. I appreciate the opportunity to participate in her care. <ELECTRONICALLY SIGNED> By: Fernando Jeong MD 02/22/20 1407 1210 1315 Fernando Jeong MD /nt
[2020-02-22 15:44] LABS: HEMATOCRIT 22.7 % (37.0-47.0); HEMOGLOBIN 7.5 gm/dL (12.0-15.0)
[2020-02-23 07:29] VITALS: BP 177/73
--- NOTE | 2020-02-23 07:35 | NUR ---
PATIENT ALERT AND ORIENTED X4. BS MONITORED EVERY [address] VANNESA SHEPPARD CALLED LAST NIGHT WITH NEW ORDER OF OCTREOTIDE. BS AT 05O0 WAS 79. PER ORDER D5NS WAS STARTED. AM NURSE WILL MONITOR. PATIENT REFUSING LACTULOSE. PATIENT HAS AN 800/ML DAILY FLUID RESTRICTION. WILL MONITOR.
[2020-02-23 09:00] LABS: HEMATOCRIT 23.9 % (37.0-47.0); HEMOGLOBIN 7.7 gm/dL (12.0-15.0); MCH 32.8 pg (26.0-34.0); MCHC 32.4 g/dL (28.0-37.0); MCV 101.4 fL (80.0-100.0); RBC 2.35 mil/uL (4.20-5.00); RDW 19.9 % (10.5-14.5); WBC 2.5 thou/uL (4.0-11.0)
[2020-02-23 09:11] LABS: CALCIUM 8.4 mg/dL (8.5-10.1); POTASSIUM 5.1 mmol/L (3.5-5.1)
[2020-02-23 09:12] LABS: CREATININE 5.4 mg/dL (0.6-1.0)
--- NOTE | 2020-02-23 12:08 | NUR ---
BG check before breakfast, 130, not appeared on the computer. BG 204 at 1106, Dr. Merritt kay.
--- NOTE | 2020-02-23 12:15 | NUR ---
Dr. Bang asked the staff to hold D5 due to BG 204. Dr. Bang also claimed that the patient would stay NPO until the ultrasound.
--- NOTE | 2020-02-23 14:31 | O ---
[facility] [place] [address] OPERATIVE REPORT Name: RAY DEMPSEY Room #: 463-P ADM IN M.R.#: [id number] Admission: 02/22/20 Attend Phys: Jose Luis Babin MD Discharge: Date of : 51 Report #: [id number] THIS REPORT FOR: cc: Dayo Mckeon MD,Dayo Jeong,Fernando Hannah MD ~ CC: Jose Luis Mckeon DATE OF SERVICE: 02/22/2020 SURGEON: Fernando Jeong MD PREOPERATIVE DIAGNOSES: Upper gastrointestinal bleed, hepatitis C, cirrhosis. POSTOPERATIVE DIAGNOSIS: See below. ANESTHESIA: See anesthesia notes. NAME OF THE PROCEDURE PERFORMED: Esophagogastroduodenoscopy. INDICATION FOR PROCEDURE: As above. FINDINGS: Isolated antral gastric varices as described. DESCRIPTION OF PROCEDURE: The risks and benefits of the procedure were explained in detail prior to monitored anesthesia. The patient was placed in left lateral decubitus position. The tip of the Olympus video endoscope was advanced into the oropharynx, esophagus, stomach, into second portion of the duodenum. Close inspection of the upper gastrointestinal mucosa was obtained upon slow withdrawal of the endoscope. The duodenum was normal in appearance without evidence of erosion or ulceration. The pylorus was patent without evidence of obstruction. The gastric antrum revealed large antral gastric varices. There was no evidence of active bleeding. There was a scant amount of blood along the mucosa. This had a grape-like appearance. Retroflexion allowed close inspection of the cardia and the fundus, which was normal. The GE junction was 40 cm and the esophagus was normal without evidence of esophageal varices. The patient tolerated the procedure well and was discharged to recovery. IMPRESSION: 1. Gastric antral varices as described. 2. No evidence of other varices or significant pathology. PLAN: 1. See orders. [facility] [address] [place] [address] OPERATIVE REPORT Name: RAY DEMPSEY Room #: 463-P [facility] IN [facility].#: [id number] Admission: 02/22/20 Attend Phys: Jose Luis Babin MD Discharge: Date of : 51 Report #: [id number] 2. If the patient experiences ongoing bleeding, she will require a TIPS procedure as there is no endoscopic treatment for gastric varices. Consideration of prophylactic TIPS procedure is reasonable considering the high risk of mortality with variceal bleeding. <ELECTRONICALLY SIGNED> By: Fernando Jeong MD 02/23/20 1431 1406 1433 Fernando Jeong MD /nt
[2020-02-23 15:25] LABS: HEMATOCRIT 23.8 % (37.0-47.0); HEMOGLOBIN 7.8 gm/dL (12.0-15.0)
--- NOTE | 2020-02-23 17:41 | NUR ---
BG 332 AT 1741, patient just ate about 1 hour ago.
--- NOTE | 2020-02-23 20:41 | NUR ---
The patient asked the staff what Oxcarbazepine was used for, the staff explained to the patient it was used to prevent seizure, the patient voiced, " I do not have seizure, why do they give me seizure medication?", the staff explained, " the medication helps preventing seizure.", patient insisted, " I have no seizure, why do they give me seizure medication? i have no seizure, why do the give me seizure medication??? get somebody who can udnerstand Engls[place].", i told her, " I undestand, i am going to talk to the charge nurse.", she stated repeatedly, " you are not libyan, you are a foreigner!" she also asked the staff if the staff had college in [place], the staff said,"yes", she claimed it was a shame the the staff went to other people's country to have college.
[2020-02-23 20:49] VITALS: BP 155/68
--- NOTE | 2020-02-24 03:41 | NUR ---
PATIENT ALERT AND ORIENTED X4. VERY UPSET AT SHIFT CHANGE DUE TO NOT HAVING A GOOD DINNER AND PROBLEMS WITH HER AM NURSE. THIS NURSE FINALLY FOUND SOMETHING THAT SHE WOULD EAT FROM THE [facility] - YOGURT AND VANILLA PUDDING, SUGAR FREE. COOPERATIVE WITH CARE. CALLS OUT APPROPRIATELY FOR THE BEDPAN. IVF INFUSING PER ORDER. BS MONITORED. REPOSITIONED AND RESTING QUIETLY. MEDICATED FOR PAIN WITH GOOD RELIEF. WILL MONITOR.
[2020-02-24 06:38] LABS: ALBUMIN 2.5 g/dL (3.4-5.0); CALCIUM 7.4 mg/dL (8.5-10.1); PHOSPHORUS 6.4 mg/dL (2.5-4.9); POTASSIUM 5.5 mmol/L (3.5-5.1)
[2020-02-24 06:49] LABS: CREATININE 6.5 mg/dL (0.6-1.0)
[2020-02-24 10:55] LABS: HEMOGLOBIN 6.5 gm/dL (12.0-15.0)
[2020-02-24 14:25] LABS: FOLIC ACID 19.5 ng/mL (8.6-58.9)
[2020-02-24 15:05] VITALS: BP 189/70
--- NOTE | 2020-02-24 20:33 | NUR ---
Assumed patient are at 0715. Vital signs stable, LSCTA (diminished), ABD tender and distended, skin is clean, warm, dry and intact. Patient is alert and oriented x's 4; she has complained about staff "not liking me and ignoring me." Patient has a Pacemaker on left side of chest. She has a fistula which is positive for a bruit and thrill. She has Dialysis Mondays, Wednesdays and Fridays. Patient voids in bedpan. Dialysis was cut short this am due to low blood pressures and patient complaints (100mLs fluid Dialized off today). Patient had Critical Lab Values at 1054 of 6.5 Hemaglobin and 19.[address] Bang notified, ordered STAT Blood Transfusion. Lab informed this nurse that this patient's blood orders take awhile due to a reactive protein. Also, computer problems ensued Hospital wide; therefore Transfusion was not started until 1540. Blood pressure readings were high during transfusion. No adverse reactions. Blood sugars are taken every 4 hours. Highest Blood Sugar was 251 at 1639, requiring 6 Units of Lispro. Transfusion completed at 2049. Report given to on-coming RN.
[2020-02-24 20:35] VITALS: BP 166/64
[2020-02-24 21:16] VITALS: BP 151/73; BP 160/70
[2020-02-24 23:14] LABS: HEMATOCRIT 24.3 % (37.0-47.0); HEMOGLOBIN 8.1 gm/dL (12.0-15.0)
--- NOTE | 2020-02-25 05:03 | NUR ---
Pt. rested quietly during the night when checked on during frequent rounds. Up to the bedside comode and pt. had a large formed black tarry stool. No c/o pain or nausea. Bed alarm is on.
[2020-02-25 08:20] VITALS: BP 171/92
[2020-02-25 11:06] LABS: HEMATOCRIT 24.1 % (37.0-47.0)
--- NOTE | 2020-02-25 13:38 | NUR ---
PT ADMITTED RELATED TO GI BLEED, ANEMIA, ESRD. CM REVIEWED CHART AND SPOKE WITH CARE TEAM. CM CALLED PT THIS DAY. PT APPEARES TO BE A&O X4. CM ROLE INTRODUCED. PT INDICATED SHE HAD BEEN AT [facility] LTC CHEMICAL TESTER. PT INDICATED SHE DOES DIALYSIS AT [facility]. PT INDICATED SHE USES A WC TO ASSIST WITH MOBILITY CHEMICAL TESTER. PT INDICATED SHE PLANS TO RETURN TO [facility] ONCE MEDICALLY STABLE. CM CALLED AND SPOKE WITH PT'S DTR ALBERTO. SHE CONFIRMED THE ABOVE. CM TO FAX CLINICAL UPDATES TO FACILITY AND DCI. CM TO FOLLOW INDICATED WITH DC PLANNING. PT TO HAVE TIPS PROCEDURE. CM TO FOLLOW INDICATED WITH DC PLANNING. CM ATTENMPTED PT TO PT'S DTR BECCA.
--- NOTE | 2020-02-25 15:29 | NUR ---
FAXED CLINICAL UPDATE TO [facility] RECEIVED CONFIRMATION AND LEFT MSG WITH MOISÉS IN ADM. DP TO FOLLOW.
--- NOTE | 2020-02-25 19:42 | NUR ---
ASSUMED CARE AT 0700. PT IS ALERT AND ORIENTED, FLAT AFFECT WITH MULTIPLE COMPLAINTS. VSSA/RA. ON TELE WITH PACEMAKER. TOLERATING DIET. GI/ NML. ACCUCHECKS Q4. PIV X2 IN PLACE. HEMODIAYLSIS CATH IN PLACE. PAIN MEDS GIVEN NEEDED. CALL LIGHT IN REACH. WILL CONTINUE TO MONITOR.
[2020-02-25 20:09] VITALS: BP 184/85
--- NOTE | 2020-02-26 03:56 | NUR ---
PATIENT ALERT AND ORIENTED X4. COMPLAINING ABOUT DINNER, NURSING AND BSC AT BEGINNING OF SHIFT. BS PER ORDER. IVF INFUSING W/O COMPLICATION. PATIENT TO HAVE PSYCH CONSULT (DR. FRAGA) FOR SEVERE DEPRESSION. AM NURSE REPORTED THAT PATIENT REFUSED HER COVID TEST. SLEEPING OFF AND ON DURING THE NIGHT. DIFFICULT TO SATISFY, VERY ARGUMENTATIVE. WILL MONITOR.
[2020-02-26 08:11] VITALS: BP 173/89
[2020-02-26 14:16] VITALS: BP 141/65
[2020-02-26 15:55] LABS: HEMATOCRIT 23.4 % (37.0-47.0); HEMOGLOBIN 8.4 gm/dL (12.0-15.0); MCH 35.3 pg (26.0-34.0); MCHC 35.9 g/dL (28.0-37.0); MCV 98.3 fL (80.0-100.0); RBC 2.38 mil/uL (4.20-5.00); RDW 19.2 % (10.5-14.5)
[2020-02-26 16:11] LABS: CREATININE 2.4 mg/dL (0.6-1.0); POTASSIUM 3.8 mmol/L (3.5-5.1)
--- NOTE | 2020-02-26 16:17 | NUR ---
Assumed pt care this am received with dialysis on going. Refused to take am medications and food, but would complain that food is wrong, not given. Post dialysis vs are as follows 173/78, 20 rr, 70 hr, 98.6 temp. On telemetry was running paced NSR. Post dialysis at 1:35 pt complained of pain on her l;eft margot, advised MD , pain meds given no releif was noted. Pt started being tachycardic and would run MD amita informed pt is to be transfered to CCU. To go to room 203, called the unit awaiting call back as to which nurse will take report. Monitoring the pt closely, curret bp is 141/65, 71 hr.
--- NOTE | 2020-02-26 18:12 | NUR ---
PATIENT HERE BY BED FROM 463, REPORT FROM [facility]. ORIENTED TO UNIT. REFUSES TO ALLOW ME TO PLACE HER ON TELE BECAUSE SHE HURTS ALL OVER TOO MUCH. CLOSE TO NURSES' STATION, FALL PRECAUTIONS IN PLACE.
[2020-02-26 18:20] VITALS: BP 157/64
[2020-02-26 19:20] VITALS: BP 161/69
[2020-02-27 03:30] VITALS: BP 162/82
--- NOTE | 2020-02-27 07:47 | NUR ---
ASSUMED PT CARE AT THE CHANGE OF SHIFT, A&0X4, PT COMPAINS ABOUT EVERYTHING AND STATES NO ONE IS PAYING ATTENTION TO HER, ASSESSMENTS CHARTED, PT UP TO THE COMMODE HOLLI ASSIST, REMAINED STABLE OVERNIGHT, PASSED ON REPORT TO DAY NURSE
[2020-02-27 07:49] VITALS: BP 176/72
--- NOTE | 2020-02-27 09:09 | EKG ---
[facility] [place] [address] ELECTROCARDIOGRAM REPORT Name: RAY DEMPSEY Room #: 203-P ADM IN M.R.#: [id number] Admission: 02/22/20 Attend Phys: Heavenly Bang MD Discharge: Date of : 51 Report #: [id number] THIS REPORT FOR: cc: Dayo Mckeon MD, Ramilo MD Couchonnal, Luis F. MD ~ THIS REPORT FOR: //name// [facility] Test Date: 2020-02-26 Test Time: 13:21:17 Pat Name: RAY DEMPSEY Department: Room: [facility] [place] Gender: F Biostatistics Manager: Eloy DUNBAR : 1955 Requested By: Stuart Hughes Order Number: [id number] MD: Jeffery Mishra Measurements Intervals [place] Rate: 125 P: MI: QRS: -34 QRSD: 102 T: 122 QT: 369 QTc: 533 Interpretive Statements Atrial fibrillation Left axis deviation Compared to ECG 12/31/2019 16:26:19 Electronically Signed On 02-27-2020 9:09:41 CDT by Jeffery Mishra [email or web address] <ELECTRONICALLY SIGNED> By: Jeffery Mishra MD 02/27/20 0909 1321 1321 Jeffery Mishra MD /EPI
[2020-02-27] MEDS ORDERED: METOPROLOL SUCC50 MG PO (10:27)
[2020-02-27 11:35] VITALS: BP 150/57
--- NOTE | 2020-02-27 14:59 | NUR ---
PT DISCHARGING TODAY TO [facility] FAXED COVID RESULT AND DC ORDERS/SUMMARY TO FACILITY SPOKE WITH MOISÉS IN ADM SHE RECEIVED ORDERS AND ARRANGED TRANSPORT BY [facility] FOR 1630 TODAY. NOTIFIED PT'S FAMILY OF DC AND TIME OF TRANSPORT. UNIT NOTIFIED AND CHART COPY PER US. RN TO CALL REPORT TO [phone].
--- NOTE | 2020-02-27 15:57 | NUR ---
PT CARE ASSUMED AT APPROX 0700. ASSESSMENTS CHARTED. PT VSS AND UP WITH STEADY GAIT. PT DISCHARGED BACK TO FACILITY AFTER BEING COVID NEGATIVE THIS MORNING. NURSING REPORT CALLED TO MAIDA. HE DENIED QUESTIONS OR CONCERNS REGARDING POC OR PT'S DISCHARGE WELL PT. NO DISTRESS NOTED. PT LEFT A MOMENT AGO TRANSPORTED BY [facility].
== END 2020-02-27 15:45 | DRG 368 ==
LOC: ER 22:22 → EROBS 02-22 01:32 → 4W 02-22 01:32 → 2N 02-26 17:56
PROVIDERS: Emergency Medicine; Internal Medicine Geriatric Medicine; Internal Medicine Nephrology; Nurse Practitioner; Nurse Practitioner Family; ADMIT Internal Medicine; ATTEND Internal Medicine
PROC: 0DJ08ZZ Inspection of Upper Intestinal Tract, Via Natural or Artificial Opening Endoscopic (ICD-10-PCS; principal; 2020-02-22)
PROC: 30233N1 Transfusion of Nonautologous Red Blood Cells into Peripheral Vein, Percutaneous Approach (ICD-10-PCS; principal; 2020-02-22)
PROC: 5A1D70Z Performance of Urinary Filtration, Intermittent, Less than 6 Hours Per Day (ICD-10-PCS; 2020-02-24)
PROC: 5A1D70Z Performance of Urinary Filtration, Intermittent, Less than 6 Hours Per Day (ICD-10-PCS; 2020-02-26)
DX: I85.01 Esophageal varices with bleeding (principal); G93.41 Metabolic encephalopathy; N18.6 End stage renal disease; D61.818 Other pancytopenia; I42.9 Cardiomyopathy, unspecified; D62 Acute posthemorrhagic anemia; C94.6 Myelodysplastic disease, not elsewhere classified; I12.0 Hypertensive chronic kidney disease with stage 5 chronic kidney disease or end stage renal disease; I86.4 Gastric varices; K72.90 Hepatic failure, unspecified without coma; E03.9 Hypothyroidism, unspecified; K74.69 Other cirrhosis of liver; B19.20 Unspecified viral hepatitis C without hepatic coma; Z20.828 Contact with and (suspected) exposure to other viral communicable diseases; E11.22 Type 2 diabetes mellitus with diabetic chronic kidney disease; F31.9 Bipolar disorder, unspecified; I48.91 Unspecified atrial fibrillation; G89.29 Other chronic pain; M25.569 Pain in unspecified knee; E11.65 Type 2 diabetes mellitus with hyperglycemia; K21.9 Gastro-esophageal reflux disease without esophagitis; D53.9 Nutritional anemia, unspecified; M19.90 Unspecified osteoarthritis, unspecified site; G47.00 Insomnia, unspecified; K59.00 Constipation, unspecified; Z95.0 Presence of cardiac pacemaker; Z90.710 Acquired absence of both cervix and uterus; Z90.49 Acquired absence of other specified parts of digestive tract; Z86.14 Personal history of Methicillin resistant Staphylococcus aureus infection; Z88.6 Allergy status to analgesic agent; Z88.2 Allergy status to sulfonamides; Z88.8 Allergy status to other drugs, medicaments and biological substances; Z87.891 Personal history of nicotine dependence; Z82.49 Family history of ischemic heart disease and other diseases of the circulatory system; Z83.3 Family history of diabetes mellitus
CPT/HCPCS: 10045; 10081; 32100; 62110; 62900

== ENCOUNTER 2020-03-13 11:18 | Inpatient (IN) | payer OTHER ==
[~2020-03-13] VITALS: Ht 167.6 cm; Wt 77.0 kg
[~2020-03-13 11:18] MED LIST changes: +METOPROLOL SUCC50 MG PO
[2020-03-13 11:19] VITALS: BP 150/63
[2020-03-13 12:02] LABS: ABSOLUTE NEUTROPHILS 2.4 thou/uL (1.4-8.2); BASOPHILS 0.4 % (0.0-2.0); HEMATOCRIT 21.8 % (37.0-47.0); HEMOGLOBIN 7.4 gm/dL (12.0-15.0); LYMPHOCYTES 12.6 % (24.0-44.0); MCH 32.8 pg (26.0-34.0); MCHC 33.9 g/dL (28.0-37.0); MCV 96.7 fL (80.0-100.0); MONOCYTES 7.7 % (1.0-8.0); POLYS 78.3 % (36.0-66.0); RBC 2.26 mil/uL (4.20-5.00)
[2020-03-13 12:22] LABS: ALBUMIN 2.7 g/dL (3.4-5.0); CALCIUM 8.4 mg/dL (8.5-10.1); CREATININE 10.4 mg/dL (0.6-1.0); POTASSIUM 5.7 mmol/L (3.5-5.1); TOTAL BILIRUBIN 0.6 mg/dL (0.2-1.0)
[2020-03-13 12:43] LABS: BE(vivo) -8.7 mmol/L (-2 to +3); HCO3 16.7 mmol/L (22.0-26.0); PCO2 33.5 mmHg (35.0-45.0); PO2 161.6 mmHg (80.0-100.0); pH 7.315 (7.360-7.450); sO2 98.9 % (92.0-98.0)
[2020-03-13 13:19] LABS: LARGE PLATELETS FEW; PLATELET COUNT 78 thou/uL (150-400); PLATELET ESTIMATE DECREASED
[2020-03-13] MEDS ORDERED: NEURONTIN100 MG PO (13:54)
[2020-03-13 14:36] LABS: URINE BILIRUBIN NEGATIVE (Negative); URINE BLOOD 1+ (Negative); URINE CLARITY CLOUDY; URINE COLOR YELLOW; URINE GLUCOSE-RANDOM* 1+ (Negative); URINE KETONES NEGATIVE (Negative); URINE LEUKOCYTES-REFLEX 2+ (Negative); URINE NITRITE-REFLEX NEGATIVE (Negative); URINE PROTEIN (DIPSTICK) 2+ (Negative); URINE SPECIFIC GRAVITY 1.015 (1.005-1.035); URINE UROBILINOGEN 0.2 E.U./dl (0.2-1.0)
[2020-03-13 15:12] LABS: BACTERIA-REFLEX >30 Many /HPF (None Seen); CASTS None Seen /LPF (None Seen); CRYSTALS None Seen /LPF (None Seen); SQUAMOUS 0-3 Few /LPF (0-3); URINE WBC-REFLEX >25 Many /HPF (0-5)
[2020-03-13 15:13] LABS: URINE RBC 3-10 Few /HPF (0-2)
[2020-03-13 17:41] VITALS: BP 150/59
[2020-03-13 18:18] VITALS: BP 142/56
[2020-03-13 20:00] VITALS: BP 125/50
--- NOTE | 2020-03-13 23:51 | NUR ---
PT ADMIT FROM ED W/ALTERED MENTAL STATUS.S/P DIALYSIS.VITALS STABLE,NO FEVER.PT NOT RESPONDING TO COMMANDS APPROPRIATELY.OPENS EYES UPON VERBAL STIMULI.HAS TREMORS INTERMITTENTLY.NG TUBE INSERTED FOR MEDS ADMINISTRATION.VANCOMYCIN IVPB PER ORDERS INFUSING..WAITING CXR TO CONFIRM PLACEMENT.PT JUST HAS A LARGE SOFT BM,PERICARE PROVIDED.ASSESSMENT COMPLETED DOCUMENTED.A-PACED ON MONTOR.O2 AT 2LITERS PNC FOR COMFORT.NO S/SX OF PAIN NOTED.WILL CONT TO MONITOR PER POC.
[2020-03-14] VITALS: BP 152/97
[2020-03-14 04:00] VITALS: BP 137/54
[2020-03-14 05:44] LABS: ABSOLUTE NEUTROPHILS 3.1 thou/uL (1.4-8.2); BASOPHILS 0.1 % (0.0-2.0); EOSINOPHILS 0.3 % (0.0-3.0); HEMATOCRIT 21.2 % (37.0-47.0); HEMOGLOBIN 7.1 gm/dL (12.0-15.0); LYMPHOCYTES 5.8 % (24.0-44.0); MCH 32.5 pg (26.0-34.0); MCHC 33.5 g/dL (28.0-37.0); MCV 97.2 fL (80.0-100.0); MONOCYTES 6.3 % (1.0-8.0); PLATELET COUNT 72 thou/uL (150-400); POLYS 87.5 % (36.0-66.0); RBC 2.18 mil/uL (4.20-5.00); RDW 18.4 % (10.5-14.5); WBC 3.5 thou/uL (4.0-11.0)
[2020-03-14 06:02] LABS: ALBUMIN 2.5 g/dL (3.4-5.0); CALCIUM 7.9 mg/dL (8.5-10.1); MAGNESIUM 1.9 mg/dL (1.8-2.4); PHOSPHORUS 5.4 mg/dL (2.5-4.9)
[2020-03-14 06:08] LABS: CREATININE 5.7 mg/dL (0.6-1.0); POTASSIUM 4.1 mmol/L (3.5-5.1)
--- NOTE | 2020-03-14 06:45 | NUR ---
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
[2020-03-14 08:00] VITALS: BP 116/50
--- NOTE | 2020-03-14 10:52 | NUR ---
ASSESSED PT, SPOKE WITH DAUGHTER, ENMA, UPDATED ON PT'S STATUS, DR PATEL IN TO SEE, PT'S R WRIST IN RESTRAINT DUE TO PT PULLING AT NGT, PT ASLEEP BUT MOANS AT TIMES WILL GIVE TYLENOL VIA NGT TO HELP MAKE COMFORTABLE.
[2020-03-14 11:35] VITALS: BP 153/68
--- NOTE | 2020-03-14 16:23 | NUR ---
NO ACETAMENOPHEN GIVEN DUE TO PT'S ALLERGY, GAVE TRAMADOL CRUSHED IN YOGURT, PT SWALLOWED ALL, NO CHOKING NOTED, NGT REMOVED PER DR PATEL'S PERMISSION, RESTRAINTS REMOVED AT 1417
--- NOTE | 2020-03-14 18:44 | NUR ---
PT TOOK MEDS WITH DINNER ALTHOUGH SHE EXPRESSED MUCH DISLIKE FOR THE FOOD CHOICES, VERY POOR APPETITE, ONLY ATE ABOUT 3 BITES OF ICE CREAM, 3 OF MONGOLIAN ICE, ONE BITE OF MEAT, ONE BITE OF MASHED POTATOES.
[2020-03-14 21:31] VITALS: BP 146/53
--- NOTE | 2020-03-15 03:24 | NUR ---
ASSESSMENT DOCUMENTED.PT BEEN RESTING IN NO ACUTE DISTRESS.PT ALERT TO SELF,DISORIENTED TO TIME,PLACE AND SITUATION,COOPERATIVE WITH CARE.MORE AWAKE TONIGHT AND FOLLOWS SIMPLE COMMANDS.STILL NOT VERY VERBAL.TOLERATING THICKENED LIQUIDS.DIALYSIS FISTULA TO JENNIFER W/+BRUIL/THRILL.INCONTINENT OF B&B.PT PROGRESSING SLOWLY TO POC.
[2020-03-15 04:20] LABS: HEMATOCRIT 23.8 % (37.0-47.0); HEMOGLOBIN 7.8 gm/dL (12.0-15.0); MCH 32.3 pg (26.0-34.0); MCHC 32.6 g/dL (28.0-37.0); MCV 98.9 fL (80.0-100.0); RBC 2.41 mil/uL (4.20-5.00); RDW 18.8 % (10.5-14.5); WBC 2.8 thou/uL (4.0-11.0)
[2020-03-15 04:24] LABS: CALCIUM 9.1 mg/dL (8.5-10.1); POTASSIUM 3.8 mmol/L (3.5-5.1)
[2020-03-15 04:25] LABS: CREATININE 4.4 mg/dL (0.6-1.0)
[2020-03-15 04:45] VITALS: BP 169/80
[2020-03-15 07:40] VITALS: BP 143/62
[2020-03-15 11:40] VITALS: BP 135/56
[2020-03-15 17:20] VITALS: BP 152/58
--- NOTE | 2020-03-15 17:20 | NUR ---
ASSESSMENT CHARTED. PT ALERT AND ORIENTED. VSS. DENIED HAVING PAIN OR DISCOMFORT. REPORT FEELING BETTER TODAY. IV ABX GIVEN ORDERED. PROGRESSING WELL TOWARDS DISCHARGE GOAL. NO CONCERNS AT THIS TIME.
[2020-03-15 20:20] VITALS: BP 120/69
[2020-03-15 23:29] VITALS: BP 120/69
[2020-03-16] VITALS (7 sets, daily range): BP systolic 113–147; BP diastolic 58–71
--- NOTE | 2020-03-16 04:35 | NUR ---
assumed pt care at the chnage of shift pt is awake, alert and oriented, apaced on the monitor, medications given as ordered, took po meds whone without difficulty, refused thick liquid, did well with thin liquid, no choking noted, had a large loose bm, julia fistula with bruit and thrill, more pleasant and cooperative with care, no issues noted, progressing well [facility] plan of care
[2020-03-16] MEDS ORDERED: KEFLEX500 M1 PO (09:45)
--- NOTE | 2020-03-16 15:37 | NUR ---
PT DISCHARGING TODAY TO [facility] FAXED DC ORDERS/SUMMARY TO FACILITY SPOKE WITH MOISÉS IN ADM SHE RECEIVED ORDERS AND ARRANGED TRANSPORT BY [facility] FOR 1800 TODAY. NOTIFIED PT'S FAMILY ([employer]) OF DC AND TIME OF TRANSPORT. UNIT NOTIFIED AND CHART COPY PER US. RN TO CALL REPORT TO [phone].
--- NOTE | 2020-03-16 17:48 | NUR ---
PT CARE ASSUMED AT 0700. ASSESSMENTS CHARTED. MEDICATION CHARTED. AO X 2-3. SLIGHTLY CONFUSED. PT IS INCONTINENT OF BOWEL; ANURIC. DIALYSIS MWF; 1 LITER OF FLUID REMOVED. JENNIFER FISTULA. COVID TEST TAKEN; NEGATIVE. RT SUBCLAVIAN PACEMAKER; ATRIAL PACED. PT TO BE DISCHARGED TO [facility]. RAC IV D/C'D. TELEMETRY D/C'D.
== END 2020-03-16 18:36 | DRG 871 ==
LOC: ER 11:18 → EROBS 17:36 → 2N 17:36
PROVIDERS: Emergency Medicine; Nurse Practitioner; ADMIT Hospitalist; ATTEND Hospitalist
PROC: 5A1D70Z Performance of Urinary Filtration, Intermittent, Less than 6 Hours Per Day (ICD-10-PCS; principal; 2020-03-13)
PROC: 5A1D70Z Performance of Urinary Filtration, Intermittent, Less than 6 Hours Per Day (ICD-10-PCS; 2020-03-16)
DX: A41.9 Sepsis, unspecified organism (principal); G93.41 Metabolic encephalopathy; N18.6 End stage renal disease; E43 Unspecified severe protein-calorie malnutrition; N39.0 Urinary tract infection, site not specified; I12.0 Hypertensive chronic kidney disease with stage 5 chronic kidney disease or end stage renal disease; E87.1 Hypo-osmolality and hyponatremia; I42.9 Cardiomyopathy, unspecified; E11.22 Type 2 diabetes mellitus with diabetic chronic kidney disease; E03.9 Hypothyroidism, unspecified; F31.9 Bipolar disorder, unspecified; I48.91 Unspecified atrial fibrillation; I07.1 Rheumatic tricuspid insufficiency; E87.5 Hyperkalemia; D69.6 Thrombocytopenia, unspecified; F41.9 Anxiety disorder, unspecified; K21.9 Gastro-esophageal reflux disease without esophagitis; B19.20 Unspecified viral hepatitis C without hepatic coma; Z20.828 Contact with and (suspected) exposure to other viral communicable diseases; Z90.49 Acquired absence of other specified parts of digestive tract; Z68.27 Body mass index [BMI] 27.0-27.9, adult; Z95.0 Presence of cardiac pacemaker; Z90.710 Acquired absence of both cervix and uterus; Z79.899 Other long term (current) drug therapy; Z88.6 Allergy status to analgesic agent; Z88.1 Allergy status to other antibiotic agents; Z88.2 Allergy status to sulfonamides; Z88.8 Allergy status to other drugs, medicaments and biological substances
CPT/HCPCS: 10081; 10194; 32100

== ENCOUNTER 2020-05-06 13:00 | Inpatient (IN) | payer OTHER ==
[~2020-05-06] VITALS: Ht 160 cm; Wt 79.2 kg
--- NOTE | ~2020-05-06 | HC ---
[facility] [place] [place] [address] CONSULTATION Name: RAY DEMPSEY Room #: 350-P ADM IN M.R.#: [id number] Admission: 05/06/20 Attend Phys: Cristiane Husain Discharge: Date of : 51 Report #: [id number] THIS REPORT FOR: cc: Dayo Mckeon MD, Ramilo MD Al-Absi,Jonas Galicia MD ~ DATE OF SERVICE: 05/08/2020 REASON FOR CONSULTATION: End-stage renal disease. REASON FOR PRESENTATION: Abnormal labs. HISTORY OF PRESENT ILLNESS: This 65-year-old with history of end-stage renal disease, hepatitis C, maintained on hemodialysis every Monday, Monday and Monday. She was found to have by her Internal Medicine doctor hemoglobin of 5.8. She also reported to the dialysis unit that she has been having dark red blood stool in the last 48 hours. The patient has had major issues with rectal bleeding and had been evaluated by the GI team multiple times. She had gastric varices on her last EGD. The patient was admitted for further evaluation and management. I was consulted to manage her end-stage renal disease issues. PAST MEDICAL HISTORY: 1. End-stage renal disease. 2. Diabetes mellitus. 3. Hypertension. 4. Hysterectomy. 5. Atrial fibrillation. 6. Hypothyroidism. ALLERGIES: SULFA. MEDICATIONS: 1. Metoprolol. 2. Midodrine. 3. Lactulose. 4. Cephalexin. 5. Sevelamer. SOCIAL HISTORY: She resides at the [facility]. No drug or alcohol abuse. FAMILY HISTORY: Significant for hypertension. REVIEW OF SYSTEMS: GENERAL: No fever or chills. [facility] [address] [place] [address] CONSULTATION Name: RAY DEMPSEY Room #: 350-P [facility] IN M.R.#: [id number] Admission: 05/06/20 Attend Phys: Cristiane Husain Discharge: Date of : 51 Report #: [id number] CARDIOVASCULAR: No chest pain or palpitation. PULMONARY: No cough or hemoptysis. GASTROINTESTINAL: No nausea or vomiting, but significant rectal bleeding. GENITOURINARY: She is anuric. MUSCULOSKELETAL: No back pain. SKIN: No rash or ulcerations. NEUROLOGICAL: No headache, no numbness. PHYSICAL EXAMINATION: GENERAL: She is awake, alert, oriented. VITAL SIGNS: Blood pressure is 135/43, temperature 37.4, pulse rate 70, respiratory rate 20. HEAD AND NECK: No jugular venous distention. CHEST: Decreased air entry bilaterally. No crackles. CARDIOVASCULAR: No rub detected. ABDOMEN: Soft. EXTREMITIES: Lower extremities, +2 edema. LABORATORY DATA: From today revealed hemoglobin of 7, platelet of 62. Sodium of 135, BUN of 64, creatinine of 6.7, phosphorus of 6.7. She tested positive for COVID-19. IMPRESSION AND PLAN: 1. End-stage renal disease. 2. Recurrent gastrointestinal bleeding. 3. Cirrhosis. 4. Transfusion p.r.n. 5. Hemodialysis tomorrow as the patient is refusing hemodialysis today. 6. Gastroenterology evaluation. 7. Watch blood pressure. 8. No anticoagulation for now. 9. Resume phosphorus binders. 10. Resume thyroid medications. 11. We will continue to follow. By: 0801 1252 Jonas Buckley MD /nt
[~2020-05-06 13:00] MED LIST changes: +KEFLEX500 M1 PO
[2020-05-06 13:01] VITALS: BP 135/43
--- NOTE | 2020-05-06 13:24 | NUR ---
PT HAS MEDICATION THAT SHE HAS TO TAKE AROUND 16:00-17:00 DUE TO HER ATTENDING DIALYSIS AT A LATER TIME. PT STATES THAT THE MEDICATION IS VERY EXPENSIVE AND SHE NEEDS TO TAKE IT EVERYDAY.
[2020-05-06 13:36] LABS: HEMOGLOBIN 6.8 gm/dL (12.0-15.0)
[2020-05-06 13:38] LABS: BASOPHILS 0.3 % (0.0-2.0); EOSINOPHILS 0.5 % (0.0-3.0); HEMATOCRIT 20.7 % (37.0-47.0); LYMPHOCYTES 8.9 % (24.0-44.0); MCH 32.8 pg (26.0-34.0); MCHC 32.7 g/dL (28.0-37.0); MCV 100.3 fL (80.0-100.0); MONOCYTES 9.3 % (1.0-8.0); RBC 2.07 mil/uL (4.20-5.00); RDW 17.9 % (10.5-14.5); WBC 3.7 thou/uL (4.0-11.0)
[2020-05-06 13:39] LABS: CALCIUM 8.5 mg/dL (8.5-10.1); CREATININE 3.9 mg/dL (0.6-1.0); POTASSIUM 3.8 mmol/L (3.5-5.1)
[2020-05-06 13:45] LABS: ALBUMIN 2.9 g/dL (3.4-5.0); TOTAL BILIRUBIN 0.3 mg/dL (0.2-1.0); TOTAL PROTEIN 8.4 g/dL (6.4-8.2)
[2020-05-06 13:50] LABS: APTT 23.9 Seconds (24.5-32.8)
--- NOTE | 2020-05-06 14:02 | NUR ---
PT VOLUNTARILY SIGNED CONSENT FOR BLOOD TRANSFUSION. PT STATED SHE HAS HAD "2-3" BLOOD TRANSFUSIONS IN THE PAST. PT DENIED ANY ADVERSE REACTIONS.
[2020-05-06 14:39] VITALS: BP 122/50
--- NOTE | 2020-05-06 15:44 | NUR ---
CONSULTED TANJA OLMEDO ABOUT CURRENT ORDER FOR BID 700, 1700 PROTONIX. I HAD ALREADY ADMINISTERED 1 VIAL OF 40MG OF PROTONIX TO THE PT AT 1448, ACCORDING TO JESUS BROWN'S ORDER. TANJA OLMEDO TOLD ME TO GIVE THE PROTONIX AGAIN AT 2100 DUE TO THE FACT THAT I ADMINISTERED PROTONIX AN HOUR AGO.
[2020-05-06 16:10] LABS: ANISOCYTOSIS 1+; PLATELET COUNT 73 thou/uL (150-400)
--- NOTE | 2020-05-06 17:10 | NUR ---
NOTIFIED THAT BLOOD IS NOW AVAILABLE FOR PT.
--- NOTE | 2020-05-06 17:54 | NUR ---
TRANSFERRED PT TO ROOM 433. GAVE BEDSIDE REPORT DUE TO THE FACT THAT I WAS NOT ABLE TO GIVE TELEPHONE REPORT. CHARGE NURSE STATES THAT SHE IS GOING TO HAVE TO REPORT ME FOR NOT ADMINISTERING BLOOD IN THE ER.
--- NOTE | 2020-05-06 19:14 | NUR ---
PT ARRIVED ON UNIT AROUND 174, PT AOX4, VSS, REPORTS CHRONIC STOMACH PAIN DUE TO RECTAL BLEEDING. PT HAS 20G IV IN RIGHT AC, DR. LEON CALLED TO REPORT ADMISSION. NURSE EDUCATED PT TO USE CALL LIGHT TO CALL NURSE. FALL PRECAUTIONS IN PLACE. PT ALSO HAS FISTULA IN LEFT FA, USED FOR DIALYSIS. THE DOCTOR ORDERED CT SCAN OF ABD/PELVIS, SHE WAS ABLE TO DRINK HALF OF CONTRAST. PT CURRENTLY OFF UNIT GETTING CT SCAN. PT WILL RECEIVE 1 UNIT OF BLOOD WHEN SHE RETURNS TO UNIT.
[2020-05-06 21:44] VITALS: BP 125/70; BP 139/54
[2020-05-07 01:45] VITALS: BP 108/42
--- NOTE | 2020-05-07 01:57 | NUR ---
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
[2020-05-07 06:32] LABS: HEMOGLOBIN 7.1 gm/dL (12.0-15.0); MCH 31.7 pg (26.0-34.0); MCHC 32.2 g/dL (28.0-37.0); MCV 98.4 fL (80.0-100.0); RBC 2.23 mil/uL (4.20-5.00); RDW 18.8 % (10.5-14.5); WBC 2.5 thou/uL (4.0-11.0)
[2020-05-07 07:19] VITALS: BP 98/42
--- NOTE | 2020-05-07 14:38 | NUR ---
INITIAL ASSESSMENT: LOKESH reviewed chart and spoke with nursing and attending physician. Pt was admitted from [facility] due to GI bleed/anemia. Pt had positive COVID test and was moved to from . Pt is in Enhanced Isolation. Pt is afebrile and not on O2. Pt is on IV abx. Tentative plan for EGD/colonoscopy tomorrow. LOKESH placed call to pt's room. No answer. LOKESH spoke with pt's dtr, Emilia Jorgensen, via phone. Introduced role of SW. Pt is in LTC at [facility] and is normally w/c bound. Pt goes to [facility] for dialysis MWF. Plan is for pt to return to [facility] when medically stable. Pt's dtr asked about a medication that pt is on for Hep C, to make sure pt has it ordered while here. The med is Epclusa and pt takes it between 6400-0699 daily for 90-days. Pt's dtr states that the medication would have been sent with the pt. LOKESH notified nursing who will check with the pharmacy. LOKESH faxed clinical info to the facility for review and spoke with Stacy in admissions. Pt had not tested positive while at the facility. Stacy to check to make sure Epclusa was sent with pt. LOKESH updated attending physician. LOKESH spoke with Shelia at [facility], who states that they are aware of pt's positive COVID test. Pt is able to return to her regular outpatient dialysis time when discharged. GAI will need to know tomorrow if she may d/c over the weekend, in order to coordinate pt's dialysis on Monday. LOKESH is following to assist as needed with discharge planning.
[2020-05-07 15:28] VITALS: BP 139/45
--- NOTE | 2020-05-07 16:11 | NUR ---
PT CARE ASSUMED AT 0700, PT ALERT AND ORIENTED X4, PT DENIES ANY CHEST PAIN, NAUSEA AND VOMITTING. PT IS ON ROOM AIR NO SIGNS OF DISTRESS. PT IS UP IN THE CHAIR. ASSESSEMTN AND VITALS SIGNS COMPLETED.FALL PRECAUTIONS IN PLACE, WILL CONTINUE TO MONITOR.
[2020-05-07 20:30] LABS: URINE BILIRUBIN NEGATIVE (Negative); URINE BLOOD 2+ (Negative); URINE CLARITY CLOUDY; URINE COLOR YELLOW; URINE GLUCOSE-RANDOM* TRACE (Negative); URINE KETONES NEGATIVE (Negative); URINE LEUKOCYTES 3+ (Negative); URINE NITRITE POSITIVE (Negative); URINE PROTEIN (DIPSTICK) 2+ (Negative); URINE SPECIFIC GRAVITY 1.015 (1.005-1.035); URINE UROBILINOGEN 0.2 E.U./dl (0.2-1.0)
[2020-05-07 20:55] LABS: CASTS None Seen /LPF (None Seen); SQUAMOUS 0-3 Few /LPF (0-3); URINE RBC 3-10 Few /HPF (0-2); URINE WBC >25 Many /HPF (0-5)
[2020-05-07 20:56] LABS: CRYSTALS None Seen /LPF (None Seen)
[2020-05-08] VITALS (7 sets, daily range): BP systolic 110–170; BP diastolic 55–70
--- NOTE | 2020-05-08 01:00 | NUR ---
ASSIST BACK TO BED AFTER SPENDING 2 AND ONE HALF HOURS DRINKING FIRST HALF OF GOLYTELY PREP. PATIENT SLIGHTLY WEAK AND LISTING TO LEFT DURING ASSIST BACK TO BED. STOOL IS DARK BROWN BUT THOROUGHLY LIQUID ALREADY. AWARE OF NEED TO BE NPO AFTER MIDNIGHT WITH PLAN TO TAKE OTHER HALF OF PREP STARTING AT 0400 THIS MORNING.
[2020-05-08 05:43] LABS: HEMATOCRIT 21.5 % (37.0-47.0); MCH 32.1 pg (26.0-34.0); MCHC 32.7 g/dL (28.0-37.0); MCV 98.1 fL (80.0-100.0); RBC 2.19 mil/uL (4.20-5.00); RDW 17.9 % (10.5-14.5); WBC 2.8 thou/uL (4.0-11.0)
[2020-05-08 06:14] LABS: ALBUMIN 2.3 g/dL (3.4-5.0); PHOSPHORUS 6.7 mg/dL (2.5-4.9); POTASSIUM 3.9 mmol/L (3.5-5.1)
[2020-05-08 06:15] LABS: CREATININE 6.7 mg/dL (0.6-1.0)
--- NOTE | 2020-05-08 12:05 | NUR ---
PT TAKEN TO GI FOR PROCEDURE.
--- NOTE | 2020-05-08 14:51 | NUR ---
Note Given: Y Facility List Provided:Y Facility Tobyen: [facility] Resident has smartphone. Resident recieving skilled services at [facility]. Will call [facility] for updates on pt condition and discharge information.
--- NOTE | 2020-05-08 15:40 | NUR ---
LOKESH reviewed chart and spoke with nursing and attending physician. Pt remains in Enhanced Isolation due to COVID-19. Pt is afebrile and not requiring O2. Pt is on IV abx. Pt had EGD/colonoscopy earlier today. Pt's diet to be advanced today. Discharge back to [facility] is anticipated for tomorrow. LOKESH spoke with Stacy in admissions at [facility], who states they are able to accept pt back over the weekend. Staff to contact Stacy to coordinate discharge. LOKESH spoke with Shelia at [facility] to notify of weekend discharge. Shelia will arrange pt's transportation to dialysis on Monday. Finalized discharge orders/summary will need to be faxed to the nursing facility and dialysis clinic when available. LOKESH spoke with pt's dtr, Emilia Jorgensen, via phone to provide update and notify of weekend discharge. Emilia Jorgensen is aware and in agreement with discharge plan. Pt's chart will need to be copied. LOKESH is following to assist as needed with discharge planning. [facility]--
--- NOTE | 2020-05-08 21:38 | NUR ---
PT ALERT AND ORIENTED X4 VSS BP MODERATELY ELEVATED.165/70. DENIED PAIN. BED DOWN CALL LIGHT IN REACH. BED ALARM ON. NO S/S DISTRESS.
--- NOTE | 2020-05-08 23:25 | NUR ---
Notified ELEMENT SETTER H&H missed this am after blood tansfusion infused. Will get cbc in am as ordered per lab. pt resting quietly waiting for cough medicine from pharmacy.
--- NOTE | 2020-05-09 01:16 | NUR ---
PT ALERT AND ORIENTED X4. SHE HAS HAD MULTIPLE COMPLAINTS TONIGHT REGARDING HER TRANSFER FROM [facility] TO ER TO ETC . INFORMED PT TO LET NS KNOW RIGHT AWAY IF SOMETHING IS GOING WRONG OR SHE HAD ANY CONCERNS OR IF SHE NEEDS SOMETHING TO CALL AGAIN IF NOOONE RESPONDS TO HER REQUESTS. INSTRUCTED PT ON FALL PRECAUTIONS. BED DOWN LOW LOCKED POSITION. BED ALARM IS ON. CALL LIGHT IN REACH. COUGH MEDS GIVEN . SHE REFUSED A SLEEPING PILL AND IS PLAYING CROSSWORD PUZZELS. NO BLEEDING NOTED. CBC DUE IN AM.
[2020-05-09 02:48] VITALS: BP 201/97
[2020-05-09 05:14] VITALS: BP 145/52
--- NOTE | 2020-05-09 05:17 | NUR ---
PT UP IN RECLINER CHAIR TO SLEEP. SHE STATES SHE FEELS BETTER UP IN CHAIR. I WAS NOT INFORMED OF BP 201/90 EARLY THIS AM AROOUND 0240. I RECHECKED IT AND BP IS DOWN TO 145/52 PRESENTLY. NO SOA. NO C/O CP.
--- NOTE | 2020-05-09 06:30 | NUR ---
NOTIFIED MEDIA SALES REPRESENTATIVE OF LAB UNABLE TO GET BLOOD THIS AM. WILL GET LABS DURING DIALYSIS. NOTIFIED HER OF BP 201/97. BETTER NOW 145/52.
[2020-05-09 08:02] VITALS: BP 105/46
[2020-05-09 14:58] VITALS: BP 169/61
[2020-05-09 18:14] LABS: HEMATOCRIT 22.8 % (37.0-47.0); HEMOGLOBIN 7.6 gm/dL (12.0-15.0); MCH 32.1 pg (26.0-34.0); MCHC 33.4 g/dL (28.0-37.0); RBC 2.37 mil/uL (4.20-5.00); WBC 2.4 thou/uL (4.0-11.0)
--- NOTE | 2020-05-09 18:44 | NUR ---
RN ASSUMED PT'S CARE AT 0700AM, PT IS A&OX3, PT GETS UP TO CHAIR , PT IS CONTINUING IV ABX , PT IS ON ISOLATION FOR POSITIVE COVID, PT'S VS ARE STABLE, PT DENIES SOB AND PAIN, PT [facility] TODAY AFTER DIALYSIS TODAY, PT STARTS DIALYSIS ABOUT 1630PM, PT WILL FINISH ABOUT 2130PM, RN HAS SET UP TRANSPORTATION TO SORTING MACHINE ATTENDANT AT 2200PM. RN WILL REPORT TO NEXT SHIFT .
--- NOTE | 2020-05-09 22:16 | NUR ---
ASSUMED CARE AT 1900, ASSESSMENT COMPLETED. DIALYSIS FINISHING UP; 2L TAKEN OFF. GAVE HS GABAPENTIN AND SEROQUEL, WELL PRN OXY IR AND DOSE OF PT'S HOME MED THAT WAS HELD EARLIER. TRANSPORT ARRIVED TO TAKE PT BACK TO [facility] AT 2150, ASSISTED PT TO GET DRESSED, IV REMOVED FROM RIGHT AC; PT LEFT VIA W/C AT 2200. REPORT CALLED TO DUSTIN KNOWLES TOOK NUMBER AT 2205. DAVID AQUINO CALLED BACK AT 2220 AND TOOK REPORT ON PT. PT WAS SENT WITH CHART COPY AND HER HOME MEDICATION WELL ALL BELONGINGS. PT D/C-D IN STABLE CONDITION.
--- NOTE | 2020-05-11 17:06 | PATH ---
[facility] [place] [place] [address] PATHOLOGY RPT PROCEDURE Name: CHIO DEMPSEY Room #: 350-P [place] M.R.#: [id number] Admission: 05/06/20 Date of : 51 Discharge: 05/09/20 Report #: [id number] Path Case #: [id number] LCA Accession Number: [id number] . 01 Material submitted: . PART A: colon - POLYP AT ASCENDING COLON. Modifiers: ascending PART B: colon - POLYP AT SIGMOID. Modifiers: sigmoid . 01 Clinician provided ICD-10: U07.1 N18.6 . 01 Clinical history: . GI BLEED, ANEMIA . 02 Diagnosis: A. Polyp, ascending colon, endoscopic biopsy: - Tubular adenoma. - Negative for high-grade dysplasia. . B. Polyp, at sigmoid, endoscopic biopsy: - Tubular adenoma. - Negative for high-grade dysplasia. (IUV:pit 05/11/2020) QTP 05/11/2020 1310 Local . 02 Electronically signed: . Rona Lizarraga MD, Pathologist NPI- [id number] . 01 Gross description: . A. Received in formalin labeled "Chio Dempsey, polyp at ascending colon" are two starr-brown soft tissue fragments measuring in aggregate 0.5 x 0.3 x 0.1 cm. The specimen is submitted entirely in A1. . B. Received in formalin labeled "Chio Dempsey, polyp at sigmoid colon" is a fragment of starr-brown soft tissue measuring 0.3 x 0.3 x 0.1 cm. The specimen is submitted entirely in B1. ([facility]; 05/09/2020) [facility] 05/09/2020 1055 Local . 02 Pathologist provided ICD-10: D12.2, D12.5 . 02 CPT . 778626, 961070 Specimen Comment: A courtesy copy of this report has been sent to [phone] Specimen Comment: [place] [address] PATHOLOGY RPT PROCEDURE Name: CHIO DEMPSEY A Room #: 350-P [place] M.R.#: [id number] Admission: 05/06/20 Date of : 51 Discharge: 05/09/20 Report #: [id number] Path Case #: [id number] Performed at: [address], [place], [place] [id number] MD Pa Mcdaniel MD Phone: [phone] Performed at: [address] [id number] MD Rona Lizarraga MD Phone: [phone]
== END 2020-05-09 22:00 | DRG 177 ==
LOC: ER 13:00 → 3W 14:35 → EROBS 14:35 → 4S 18:11 → 3W 05-07 01:59
PROVIDERS: Emergency Medicine; Nurse Practitioner; ADMIT Hospitalist; ATTEND Hospitalist
PROC: 30233N1 Transfusion of Nonautologous Red Blood Cells into Peripheral Vein, Percutaneous Approach (ICD-10-PCS; 2020-05-06)
PROC: 5A1D70Z Performance of Urinary Filtration, Intermittent, Less than 6 Hours Per Day (ICD-10-PCS; principal; 2020-05-07)
PROC: 0DBK8ZZ Excision of Ascending Colon, Via Natural or Artificial Opening Endoscopic (ICD-10-PCS; 2020-05-08)
PROC: 0DBN8ZZ Excision of Sigmoid Colon, Via Natural or Artificial Opening Endoscopic (ICD-10-PCS; 2020-05-08)
PROC: 0DJ08ZZ Inspection of Upper Intestinal Tract, Via Natural or Artificial Opening Endoscopic (ICD-10-PCS; 2020-05-08)
DX: U07.1 COVID-19 (principal); N18.6 End stage renal disease; I85.01 Esophageal varices with bleeding; K57.31 Diverticulosis of large intestine without perforation or abscess with bleeding; D62 Acute posthemorrhagic anemia; D61.818 Other pancytopenia; K76.6 Portal hypertension; I12.0 Hypertensive chronic kidney disease with stage 5 chronic kidney disease or end stage renal disease; I48.91 Unspecified atrial fibrillation; B19.20 Unspecified viral hepatitis C without hepatic coma; K72.90 Hepatic failure, unspecified without coma; E03.9 Hypothyroidism, unspecified; F31.9 Bipolar disorder, unspecified; K74.60 Unspecified cirrhosis of liver; F41.9 Anxiety disorder, unspecified; E11.22 Type 2 diabetes mellitus with diabetic chronic kidney disease; I86.4 Gastric varices; D63.8 Anemia in other chronic diseases classified elsewhere; N30.90 Cystitis, unspecified without hematuria; K44.9 Diaphragmatic hernia without obstruction or gangrene; L81.4 Other melanin hyperpigmentation; K63.5 Polyp of colon; K64.8 Other hemorrhoids; Z20.828 Contact with and (suspected) exposure to other viral communicable diseases; Z99.2 Dependence on renal dialysis; Z90.710 Acquired absence of both cervix and uterus; Z86.14 Personal history of Methicillin resistant Staphylococcus aureus infection; Z88.6 Allergy status to analgesic agent; Z88.2 Allergy status to sulfonamides; Z88.8 Allergy status to other drugs, medicaments and biological substances; Z82.49 Family history of ischemic heart disease and other diseases of the circulatory system; Z83.3 Family history of diabetes mellitus
CPT/HCPCS: 10080; 10195; 32100; 62110; 62900

== ENCOUNTER 2020-08-30 16:52 | Inpatient (IN) | payer OTHER ==
[~2020-08-30] VITALS: Ht 160 cm; Wt 79.5 kg
[2020-08-30 16:54] VITALS: BP 121/57
--- NOTE | 2020-08-30 17:57 | NUR ---
THIS FIELD SPECIALIST SEAK TO JOSSELYN YEE FROM [facility] WHO REPORTED TO [facility] R/T THIS PT. HE STATES THAT HE DID NOT NOTE IN VIOLENCE IN THE PT, HE DENIES THAT THE PT HAS ANY SI OR HI HE DIRECTLY ASKED HER. HE DENIES A CIT REPORT. HE ALSO STATES THAT THE STAFF REPORTED TO HIM THAT THEY DID NOT NOTE ANY BEHAVIORS BUT THAT THEY NEEDED TO TRANSPORT THE PT FOR PSYCH EVAL PER DR LUGO
[2020-08-30 18:51] LABS: MCH 35.9 pg (26.0-34.0); MCHC 33.5 g/dL (28.0-37.0); MCV 107.3 fL (80.0-100.0); RBC 1.62 mil/uL (4.20-5.00); RDW 17.3 % (10.5-14.5); WBC 3.3 thou/uL (4.0-11.0)
[2020-08-30 18:56] LABS: HEMOGLOBIN 5.8 gm/dL (12.0-15.0)
[2020-08-30 18:57] LABS: CALCIUM 10.2 mg/dL (8.5-10.1); HEMATOCRIT 17.4 % (37.0-47.0); POTASSIUM 5.7 mmol/L (3.5-5.1)
[2020-08-30 19:04] LABS: TOTAL BILIRUBIN 0.4 mg/dL (0.2-1.0); TOTAL PROTEIN 7.8 g/dL (6.4-8.2)
[2020-08-30] MEDS ORDERED: IMITREX 25 MG T25 MG PO (20:13)
[2020-08-30] MEDS ORDERED: MELATONIN3 M2 PO (20:14)
[2020-08-30] MEDS ORDERED: VITAMIN C500 M1 PO (20:14)
[2020-08-30] MEDS ORDERED: FLORANEX TABLE1 EACH PO (20:15)
[2020-08-30] MEDS ORDERED: LANTUS SUBQ (20:15)
[2020-08-30] MEDS ORDERED: BUSPIRONE HCL5 MG PO (20:15)
[2020-08-30] MEDS ORDERED: PERCOCET 5-3251 EACH PO (20:16)
[2020-08-30] MEDS ORDERED: SEROQUEL XR1 EACH PO (20:17)
[2020-08-30 22:36] VITALS: BP 134/56
[2020-08-30 22:54] VITALS: BP 144/59
[2020-08-30 23:09] VITALS: BP 146/56
[2020-08-31] VITALS (24 sets, daily range): BP systolic 124–178; BP diastolic 42–80
[2020-08-31 06:42] LABS: HEMOGLOBIN 6.9 gm/dL (12.0-15.0); WBC 4.6 thou/uL (4.0-11.0)
[2020-08-31 06:43] LABS: HEMATOCRIT 20.5 % (37.0-47.0); MCH 33.9 pg (26.0-34.0); MCHC 33.7 g/dL (28.0-37.0); RBC 2.04 mil/uL (4.20-5.00); RDW 23.1 % (10.5-14.5)
[2020-08-31 06:47] LABS: CALCIUM 8.9 mg/dL (8.5-10.1); CREATININE 6.3 mg/dL (0.6-1.0)
[2020-08-31 06:54] LABS: POTASSIUM 6.3 mmol/L (3.5-5.1)
[2020-08-31 06:56] LABS: MCV 100.5 fL (80.0-100.0)
[2020-08-31 09:32] LABS: PROTIME 11.3 Seconds (9.3-11.4)
--- NOTE | 2020-08-31 09:54 | NUR ---
0954 DIALYSIS IN PROGRESS, 2ND UNIT OF BLOOD TRANSFUSING. PATIENT TOLERATING WELL. CHAVO WITH GI AT BEDSIDE. WILL CONTINUE TO MONITOR.
[2020-08-31 13:21] LABS: HEMATOCRIT 23.9 % (37.0-47.0); HEMOGLOBIN 8.2 gm/dL (12.0-15.0)
--- NOTE | 2020-08-31 13:50 | NUR ---
PATIENT'S BLOOD PRESSURE IS ELEVATED HIGH 170'S OVER 60'S, PHYSICIAN IS AWARE. PATIENT COMPLETE WITH TODAYS DIALYSIS, AND SHE TOLERATED IT WELL. 2.5 LITERS REMOVED PER DIALYSIS NURSE. NO S/S OF BLEEDING. NO OTHER CONCERNS AT THIS TIME. WILL CONTINUE TO MONITOR AND CARE PER PLAN OF CARE.
--- NOTE | 2020-08-31 15:22 | NUR ---
chart review, unable to visit with pt rt receiving dialysis today. noted she been her in the past, dc to [facility]. she ltc at [facility] and goes to dialysis at [facility]. cm visit with her daughter carli bernabe rt dcp, she voiced concerns about going back to [facility] and would like different facility closer to [place] or [place] if can. cm active listen during visit and education that might not have time to find another facility and there is sw at [facility] to help with this, asked her if ok to pass on information to mark to have her reach out her about concerns " yes i have already but ok would like her to be able to stay at hospital until found new place"/jak. educate that would not be able to happen. cm passed on information to [facility] liaison and bedside nurse here.
--- NOTE | 2020-08-31 23:40 | NUR ---
PATIENT HAS TX ORDERS. REPORT CALLED TO 3W RN. PATIENT OFF THE UNIT AT APPROX 2300. VSS. AFEBRILE. REMAINS ON ROOM AIR. TRANSFERED VIA HOSPITAL BED. ATTACHED TO THE MONITOR. PATIENT'S WHEELCHAIR TAKEN WITH THE PATIENT. ALL QUESTIONS ANSWERED. DENIES NEEDS.
--- NOTE | 2020-08-31 23:59 | NUR ---
TRANSFERRED FROM ICU TO APPROX 2300. SHE IS IRRITABLE AND DISAGREES/ STATES FACTS ABOUT MEDICATION REGIME THAT IS NOT A FACT. SHE IS WANTING A PAIN MEDICATION THAT SHE NORMALLY TAKES THAT STARTS WITH THE LETTER C. SHE IS ON ON ANY MEDICATION THAT STARTS WITH C. I THINK SHE WANTS HER SELEVAMER... I EXPLAINED THAT SHE CANNOT HAVE THAT AT THIS TIME. SHE COMPLAINS OF CHRONIC BACK PAIN.REFUSES TO ALLOW THE ADMINISTRATION OF MORPHINE OR ANY NARCOTIC. SHE WANTS THE MEDICATION THAT STARTS WITH C.? SHE GOT UP ON THE BSC AT TIME OF TRANSFER TO THE UNIT. SHE DID HAVE A MODERATE AMOUNT OF DARK BOWEL MOVMENT. SHE CONTINUES ON THE PANTOPRAZOLE IV GTT OF HER GI BLEED.
--- NOTE | 2020-09-01 04:24 | NUR ---
PT COMPLAINING THAT THE URINARY CATHETER IS UNCOMFORTABLE. REMOVED PER HER REQUEST. TOLERATED REMOVAL WITHOUT COMPLAINT.
[2020-09-01 05:00] VITALS: BP 193/87
--- NOTE | 2020-09-01 06:48 | NUR ---
PT IS WORRIED ABOUT HER GLASSES. THEY HAVE BEEN LEFT AT THE HALF-WAY AND SHE WANTS THEM. SHE IS UNHAPPY THAT SHE IS ON CLEAR LIQUIDS. CRYING AND YELLING THIS MORNING ABOUT THIS FACT.
[2020-09-01 07:24] LABS: FOLIC ACID 19.6 ng/mL (8.6-58.9)
[2020-09-01 07:33] VITALS: BP 152/74
[2020-09-01] MEDS ORDERED: CIPRO250 M2 PO (11:22)
[2020-09-01] MEDS ORDERED: FLAGYL500 M1 PO (11:22)
--- NOTE | 2020-09-01 13:56 | NUR ---
SW reviewed chart and spoke with nursing and attending physician. Pt transferred to from ICU. Discharge orders written for pt to discharge. SW spoke with pt's dtr, Emilia Jorgensen, via phone. Notified of discharge orders. Pt's dtr states that she does not want pt to return to [facility], but understands that pt cannot stay in the hospital for a long period of time if not medically necesesary. Pt's dtr states that the SW at [facility] has not assisted with finding alternate placement. SW discussed the possibility of pt transferring to another [facility] facility in [place] ([facility] or [facility]). Pt's dtr is agreeable with referrals to both facilities. SW explained the [place] facilities do not have onsite dialysis. Outpatient dialysis will need to be arranged. Pt's dtr verbalized understanding. SW spoke with pt via phone regarding discharge. Pt states she will not return to [facility] due to concerns with the care. SW discussed pt discharging back to [facility] and for the facility's SW to work on moving pt to an alternate facility. Pt is not agreeable with returning to [facility] at this time. SW explained to pt that referrals will be sent to the facilities in [place]. Pt is aware of having to leave the facility for outpatient dialysis. LOKESH faxed referral to both [facility] and [facility]. Spoke with admissions coordinators at both facilities, who will review pt's info. LOKESH updated Ruth Ann at [facility]. LOKESH also updated pt's nurse and attending physician. LOKESH is following to assist as needed with discharge planning.
[2020-09-01 15:49] VITALS: BP 166/83
--- NOTE | 2020-09-01 17:59 | NUR ---
assumed care of pt at 0700. pt alert and oriented, voicing many complaints, most of which are about the facility where she resides. tolerating renal diet. calls frequently with many concerns. forgetful and needs reminders. stable for discharge - pending placement. wcm.
[2020-09-01 19:01] VITALS: BP 174/77
--- NOTE | 2020-09-01 20:11 | NUR ---
PT UP IN LOUNGE CHAIR WATCHING TV. IVF INTACT. LUNGS WITH CRACKLES. BLE EDEMA. SKIN TONE DUSKY. PT COMPLAINED THAT SHE WAS EXPECTED TO BATH SELF ON DAY SHIFT WITH BATH WATER PROVIDED. SCOWL ON FACE WHEN TALKING WITH STAFF. R GROIN IV, JENNIFER FISTULA.
[2020-09-02 03:53] VITALS: BP 180/80
--- NOTE | 2020-09-02 03:58 | NUR ---
BP ELEVATED, PROVIDER NOTIFIED. ORDER TO GIVE AM MED NOW.
[2020-09-02 07:47] VITALS: BP 178/93
[2020-09-02 11:21] VITALS: BP 149/73
[2020-09-02 12:18] VITALS: BP 139/64
--- NOTE | 2020-09-02 13:42 | NUR ---
DISCHARGE NOTE: LOKESH reviewed chart and spoke with nursing and attending physician. Pt is medically stable for discharge to post-acute care today. LOKESH spoke with Cecy at [facility] who states they do not anticipate having a termite helper care bed available for pt after a skilled stay. LOKESH spoke with Anay at [facility], who confirms they are able to accept pt. [place] is able to provide transportation to/from dialysis once pt's outpatient dialysis has been arranged. LOKESH spoke with Ruth Ann in admissions at [facility] who states they can accept pt back and have their in-house dialysis clinic arrange pt's outpatient dialysis, and then pt will be moved from [facility] to [facility]. LOKESH spoke with pt's dtr, Emilia Jorgensen, via phone. Provided update. Emilia Jorgensen states that she spoke with administration at [facility] regarding concerns. Pt's dtr is agreeable with plan and requests pt's pacemaker to be checked. Pt's dtr also asking to speak with attending physician. SW provided contact info to attending physician. Order entered for pt's pacemaker to be checked. LOKESH faxed finalized discharge orders/summary to [facility]. Wheelchair van scheduled for 1700 per facility's arrangements. LOKESH updated pt's nurse. LOKESH spoke with pt via phone to provide update and explained discharge plan. Pt verbalized understanding and is agreeable. Chart copy requested. Nursing provided with number to call report. No additional SW needs identified at this time, but is available to assist should needs arise.
[2020-09-02 14:56] VITALS: BP 151/84
--- NOTE | 2020-09-02 19:16 | NUR ---
RN ASSUMED PT'S CARE AT 0700AM, PT IS A&OX3 , PT IS ON ROOM AIR , PT'S VS ARE STABLE, PT IS TOLERATED DISLYSIS TODAY, REMOVAL 2500ML RITU, MILES RECEIVED ORDER TO DC TO SNF TODAY, RN HAD GIVING REPORT TO SNF , RN AND SW HAD REMINDED SNF RNS TO HELP PT SEEING CARDILOGY DR SOON POSSIBLE TO CHECK PT'S PACEMAKER ,BECAUSE HOSPITAL DR AND RN CANNOT FIND PT'S PACEMAKER INFORMATION . RN HAD REMINDED PT'S DAUGHTER TO HELP PT TO SEE CARDILOGY DR TO CHECK PACEMAKER. TRANSPORTATION SENIOR ELECTRICAL ENGINEER PT ABOUT 1715PM.
--- NOTE | 2020-09-03 11:03 | NUR ---
SW received call from pt's dtr, Emilia Jorgensen, this morning regarding pt's discharge last evening. Pt's pacemaker was not checked prior to discharge. Pt's dtr states she received a call from attending physician, Dr. Husain, this morning. Pt's dtr was not happy that pt was discharged prior to having pacemaker checked. Pt's dtr states that an RN called her on Monday asking for info about pt's pacemaker. This information documented in RN notes on 08/31. Pt has [employer] device. Attending physician provided info this morning regarding specific info on the pacemaker. This information provided to Ruth Ann in admissions at [facility]: [employer] ( ). Model: [id number]. Serial #: [id number]. Pt's coding quality coordinator is Dr. Ayala at [phone]. Plan is for pt to transfer to [facility] once pt's outpatient dialysis has been arranged. LOKESH updated Director of Case Mgmt. SW is available to assist should needs arise.
== END 2020-09-02 17:16 | DRG 871 ==
LOC: ER 16:52 → EROBS 22:00 → 3W 22:00 → ICU 22:00 → 3W 08-31 23:10
PROVIDERS: Nurse Practitioner; Nurse Practitioner Family; ADMIT Hospitalist; ATTEND Hospitalist
PROC: 06HY33Z Insertion of Infusion Device into Lower Vein, Percutaneous Approach (ICD-10-PCS; 2020-08-30)
PROC: 30233N1 Transfusion of Nonautologous Red Blood Cells into Peripheral Vein, Percutaneous Approach (ICD-10-PCS; principal; 2020-08-31)
PROC: 5A1D70Z Performance of Urinary Filtration, Intermittent, Less than 6 Hours Per Day (ICD-10-PCS; 2020-09-02)
DX: A41.9 Sepsis, unspecified organism (principal); K57.31 Diverticulosis of large intestine without perforation or abscess with bleeding; N18.6 End stage renal disease; G93.41 Metabolic encephalopathy; I12.0 Hypertensive chronic kidney disease with stage 5 chronic kidney disease or end stage renal disease; D62 Acute posthemorrhagic anemia; G93.40 Encephalopathy, unspecified; R45.851 Suicidal ideations; I85.00 Esophageal varices without bleeding; K52.9 Noninfective gastroenteritis and colitis, unspecified; K74.60 Unspecified cirrhosis of liver; E11.22 Type 2 diabetes mellitus with diabetic chronic kidney disease; F31.9 Bipolar disorder, unspecified; E87.5 Hyperkalemia; D69.6 Thrombocytopenia, unspecified; I25.10 Atherosclerotic heart disease of native coronary artery without angina pectoris; K21.9 Gastro-esophageal reflux disease without esophagitis; E11.42 Type 2 diabetes mellitus with diabetic polyneuropathy; F41.9 Anxiety disorder, unspecified; G89.29 Other chronic pain; K72.90 Hepatic failure, unspecified without coma; B19.20 Unspecified viral hepatitis C without hepatic coma; K64.9 Unspecified hemorrhoids; D63.1 Anemia in chronic kidney disease; E03.9 Hypothyroidism, unspecified; Z95.0 Presence of cardiac pacemaker; Z90.710 Acquired absence of both cervix and uterus; Z90.49 Acquired absence of other specified parts of digestive tract; Z79.4 Long term (current) use of insulin; Z79.899 Other long term (current) drug therapy; Z88.2 Allergy status to sulfonamides; Z88.8 Allergy status to other drugs, medicaments and biological substances
CPT/HCPCS: 10078; 10879; 32100; 85076

== ENCOUNTER 2020-09-05 16:26 | Inpatient (IN) | payer OTHER ==
[~2020-09-05] VITALS: Ht 160 cm; Wt 78.3 kg
[~2020-09-05 16:26] MED LIST changes: +BUSPIRONE HCL5 MG PO; +CIPRO250 M2 PO; +FLAGYL500 M1 PO; +FLORANEX TABLE1 EACH PO; +LANTUS SUBQ; +MELATONIN3 M2 PO; +PERCOCET 5-3251 EACH PO; +SEROQUEL XR1 EACH PO; +VITAMIN C500 M1 PO
[2020-09-05 16:27] VITALS: BP 142/47
[2020-09-05 17:13] LABS: MCHC 33.5 g/dL (28.0-37.0)
[2020-09-05 17:15] LABS: MCH 34.6 pg (26.0-34.0); MCV 103.2 fL (80.0-100.0); PLATELET COUNT 93 thou/uL (150-400); RBC 1.57 mil/uL (4.20-5.00); RDW 22.2 % (10.5-14.5)
[2020-09-05 17:21] LABS: CALCIUM 9.3 mg/dL (8.5-10.1); CREATININE 4.4 mg/dL (0.6-1.0); POTASSIUM 4.4 mmol/L (3.5-5.1)
[2020-09-05 17:22] LABS: HEMATOCRIT 16.2 % (37.0-47.0); HEMOGLOBIN 5.4 gm/dL (12.0-15.0)
[2020-09-05 17:27] LABS: ALBUMIN 2.7 g/dL (3.4-5.0); PROTIME 11.3 Seconds (9.3-11.4); TOTAL BILIRUBIN 0.6 mg/dL (0.2-1.0); TOTAL PROTEIN 6.8 g/dL (6.4-8.2)
[2020-09-05 18:02] LABS: ANISOCYTOSIS 3+
[2020-09-05 18:03] LABS: MACROCYTES 1+
[2020-09-05 18:50] VITALS: BP 142/47
--- NOTE | 2020-09-05 18:56 | NUR ---
ATTEMPTED TO CALL REPORT, WAS ADVISED NURSE WAS 'BUSY TAKING REPORT' AND WILL HAVE TO CB
[2020-09-05 19:07] VITALS: BP 162/47
--- NOTE | 2020-09-05 19:30 | NUR ---
PT IS ALERT AND ORIENTED [facility] SE[facility]AL MONTHS AND A HGB 5.9. ORDERED 2 UNITS OF PRBC TO BE GIVEN. LUNGS ARE CLEAR. ABDOMEN IS ROUND AND SOFT. BOWEL SOUNDS ACTIVE X4. PT IS A DIALYSIS PT WITH A LEFT ARM FISTULA BRUIT AND THRILL PRESENT. PT SKIN APPEARS JAUNDICE. REFUSED MEDS BUT TOOK INSULIN THIS EVENING. REPORTS SHE JUST LEFT THE FACILITY RECENTLY AND IS NOW BACK AGAIN FOR AN ADMISSION. ADMISSION DONE TO CCU PER NURSE. CALL LIGHT WITHIN REACH NEEDED FOR NURSING ASSITANCE
[2020-09-05 22:42] VITALS: BP 167/84; BP 176/85
[2020-09-06 01:32] VITALS: BP 156/82; BP 162/78; BP 178/85
[2020-09-06 03:45] VITALS: BP 157/87
[2020-09-06 05:38] LABS: HEMATOCRIT 26.2 % (37.0-47.0); MCH 32.8 pg (26.0-34.0); MCHC 33.5 g/dL (28.0-37.0); RBC 2.68 mil/uL (4.20-5.00); RDW 21.5 % (10.5-14.5); WBC 2.8 thou/uL (4.0-11.0)
[2020-09-06 05:39] LABS: HEMOGLOBIN 8.8 gm/dL (12.0-15.0)
[2020-09-06 05:47] LABS: CALCIUM 9.4 mg/dL (8.5-10.1); CREATININE 4.8 mg/dL (0.6-1.0); POTASSIUM 4.5 mmol/L (3.5-5.1)
[2020-09-06 07:43] VITALS: BP 166/104
--- NOTE | 2020-09-06 11:13 | NUR ---
AAOX4. GENERALLY NEGATIVE AFFECT. BUN, CR NOTED. JAUNDICED. V-PACED PER TELE. HGB 8.8 AFTER 2UPC. ASSISTED TO BEDSIDE CHAIR. FALL PRECAUTIONS IN PLACE.
[2020-09-06 15:21] VITALS: BP 150/73
[2020-09-06 20:03] VITALS: BP 167/72
[2020-09-07 03:32] LABS: HEMOGLOBIN 8.3 gm/dL (12.0-15.0)
[2020-09-07 03:35] LABS: HEMATOCRIT 24.5 % (37.0-47.0); MCH 33.3 pg (26.0-34.0); MCV 97.9 fL (80.0-100.0); RBC 2.51 mil/uL (4.20-5.00); RDW 22.1 % (10.5-14.5); WBC 2.9 thou/uL (4.0-11.0)
[2020-09-07 03:39] LABS: ALBUMIN 2.6 g/dL (3.4-5.0); CALCIUM 8.7 mg/dL (8.5-10.1); PHOSPHORUS 4.6 mg/dL (2.5-4.9); POTASSIUM 4.3 mmol/L (3.5-5.1)
[2020-09-07 04:00] VITALS: BP 159/89
--- NOTE | 2020-09-07 04:29 | NUR ---
PT IS ALERT AND ORIENTED X4. LUNGS ARE DIMINISHED. ON ROOM AIR. V-PACED PT HAS BEEN NPO SINCE DE FOR EGD POSIBLY TODAY PLANND. ABDOMEN IS ROUND AND SOFT. BOWEL SOUND ACIVE X. SOMETIMES SHE REFUSES MEDS BUT TOOK NEDS THIS AM. CALL LIGHT WITHIN REACH IF NEEDS ASSSTANCE FROM STAFF. WILL CONTINUE TO MONTIOR AND SAFF PER RALEIGH
[2020-09-07 08:52] VITALS: BP 167/88
[2020-09-07 12:00] VITALS: BP 155/78
--- NOTE | 2020-09-07 16:56 | NUR ---
Patient admits with Anemia. Patient recent dc from [facility] to [facility] 09/02/20, where patient resides as ltc resident. Patient dializes MWF at [facility]. At time of prev dc dtr and patient were not pleased with care at [facility]. They were planning toreturn with impression they would eventually transition to another facility. Prev casemgt faxed referrals to [facility] and [facility]. Sp with Rachel who reports they did not have a ltc bed avail. Sp with [facility] who initally accepting. Admissions reports they have one ltc bed avail, if dialysis can be arranged with [facility] across the street or closer dialysis closer. Sp with dtr who reports she understood [facility] not accepting as patient with psych hx. Rec call from [facility] who reports no need to inquire into dialysis they are not accepting as patient has been recently with SI. Will plan to discuss in further details with dtr. Sp with [facility] who is accepting for patient to return. Case mgt to discuss with dtr dc plannig.
--- NOTE | 2020-09-07 18:04 | NUR ---
ASSUMED CARE OF PT AT SHIFT CHANGE. ASSESSMENT CHARTED. MEDS GIVEN PER AUG. PT A&OX4, NO C/O PAIN. EGD DELAYED UNTIL TOMORROW SO DIALYSIS COULD BE COMPLETE TODAY, TOOK OFF 1.5L. POSSIBLE DC TOMORROW. WILL CONTINUE TO MONITOR FOR CHANGES AND FOLLOW POC.
[2020-09-07 20:28] VITALS: BP 154/70
[2020-09-07 23:40] VITALS: BP 173/74
[2020-09-08 04:20] VITALS: BP 168/66
[2020-09-08 05:03] LABS: HEMATOCRIT 21.9 % (37.0-47.0); HEMOGLOBIN 7.4 gm/dL (12.0-15.0); MCH 33.3 pg (26.0-34.0); MCHC 33.9 g/dL (28.0-37.0); MCV 98.1 fL (80.0-100.0); RBC 2.23 mil/uL (4.20-5.00); RDW 21.9 % (10.5-14.5)
--- NOTE | 2020-09-08 06:09 | NUR ---
ASSUME CARE 1900. PT/BOY;S STABLE. INTERMITTENT GENERALYZED PAIN/PT COMPLAINS OF FIBROMYALGIA. DARK GREEN STOOLS NOTED. ASSESSMENT CHARTED. PROGRESSING MODERATELY TO POC. SR ON MONITOR. NO DISTRESS NOTED THROUGH THE NIGHT. HGB AT 7.4 THIS AM. NPO SINCE MIDNIGHT FOR EGD TODAY. WILL CONTINUE TO MONITOR AND FOLLOW WITH POC
[2020-09-08 08:00] VITALS: BP 149/72
--- NOTE | 2020-09-08 09:18 | NUR ---
Note Given: Y Facility List Provided:Y Facility Judy: None chosen at this time eBcky Castro NP discussed BPCI with this pt 09/07/2020
--- NOTE | 2020-09-08 10:56 | NUR ---
PT DOWN FOR EGD THIS AM. NPO DINCE MIDNIGHT, PT TAKEN METOPROLOL PER GI REQUEST. PT ALERT AND ORIENTED AND UNDERSTAND PROCEDURE. PAIN 01/09 PT STATES THIS IS CHRONIC D/T FIBROMYALGIA. NO QUESTIONS AT THIS TIME.
--- NOTE | 2020-09-08 13:09 | NUR ---
Both [facility] and [facility] declined patient. left message for dtr to call casemgt.
--- NOTE | 2020-09-08 14:47 | NUR ---
FAXED REFERRAL WITH NEGATIVE COVID RESULT TO [facility]. LEFT MESSAGE WITH KIRSTIN/ADMISSIONS TO CONFIRM SHE RECEVIED AND BED AVAILABILITY. [facility] P [phone]; FAX [phone]
[2020-09-08 16:00] VITALS: BP 164/74
[2020-09-08 20:00] VITALS: BP 170/86
[2020-09-09 03:49] VITALS: BP 150/69
[2020-09-09 05:28] LABS: HEMATOCRIT 23.2 % (37.0-47.0); HEMOGLOBIN 7.7 gm/dL (12.0-15.0); MCV 99.9 fL (80.0-100.0); RBC 2.32 mil/uL (4.20-5.00); RDW 22.8 % (10.5-14.5); WBC 2.2 thou/uL (4.0-11.0)
[2020-09-09 08:08] VITALS: BP 166/96
[2020-09-09] MEDS ORDERED: PROPRANOLOL 1010 MG PO (09:42)
--- NOTE | 2020-09-09 12:56 | NUR ---
spoke with patient/dtr. Dtr wanted to sp with GI prior to discharge. Sp with GI nurse practioner who will sp with dtr. Per Gi plan outpatient capsule study to be arranged with outpatient GI clinic. Once study completed casemgt to arrange clinique counter manager, quicksilver to retrieve information and return to GI clinic. Patient and dtr in agreement with discharge. Referral sent to [facility] who also has in house dialysis. [facility] has accepted patient for post acute care. Patient/dtr in agreement to discharge to new facility. Updated admissions at [facility] of capsule study. Sp with Agnes/[facility] of new facility. Sp with [facility] who [facility] regarding retireving patients clothes for new facility.
--- NOTE | 2020-09-09 14:52 | NUR ---
Patients discharge cancelled. Plan inpatient capsule study. Sp with Gi CREATIVE SPECIALIST, Dr Kwok, Dr Husain, patient, dtr and RN. Sp with Shameka admissions at [facility]. Alerted patient to be NPO and have capsule study then dc tomorrow. casemgt to sp with Shameka tomorrow regarding transport time.
[2020-09-09 15:14] VITALS: BP 175/64
[2020-09-09 19:37] VITALS: BP 187/73
[2020-09-10 03:37] VITALS: BP 152/67
[2020-09-10 05:41] LABS: HEMATOCRIT 23.5 % (37.0-47.0); HEMOGLOBIN 7.9 gm/dL (12.0-15.0); MCH 33.6 pg (26.0-34.0); MCHC 33.8 g/dL (28.0-37.0); MCV 99.6 fL (80.0-100.0); RBC 2.36 mil/uL (4.20-5.00); RDW 22.6 % (10.5-14.5)
--- NOTE | 2020-09-10 05:55 | NUR ---
Progressing toward goals. No signs of GI bleeding this shift. Pt has been NPO since midnight for EGD procedure.
[2020-09-10 07:40] VITALS: BP 169/74
--- NOTE | 2020-09-10 11:09 | NUR ---
All parties anticipating dc to SNF at [facility] this evening at 5pm. Pick per w/c van arranged by [facility]. Chart copy to be updated. Nursing to call report. Dc event planner to fax any updated orders.
--- NOTE | 2020-09-10 11:50 | NUR ---
PT DISCHARGING TODAY TO [facility] FAXED DC ORDERS/SUMMARY TO FACILITY SPOKE WITH KIRSTIN IN ADM SHE RECEIVED ORDERS AND ARRANGED TRANSPORT WC VAN FOR 1700 TODAY. NOTIFIED PT'S DTR ([employer]) OF DC AND TIME OF TRANSPORT SHE AGREED WITH DC PLAN AND WILL BE HERE PRIOR TO DC TO SEE HER MOTHER.
[2020-09-10 15:08] VITALS: BP 157/71
--- NOTE | 2020-09-10 16:56 | NUR ---
SHIFT SUMMARY: PATIENT ALERT AND ORIENTED AND VITALS STABLE. ASSESSMENT DOCUMENTED. CAPSULE STUDY COMPLETED THIS AFTERNOON BY Layo DC ORDERS RECEIVED AND REPORT CALLED TO SHAVONNE AT [facility]. TRANSPORTED BY WHEELCHAIR TO FACILITY AND DC INSTRUCTIONS AND ORDERS FAXED TO [facility] BY [facility] (UNIT SEC).
== END 2020-09-10 17:06 | DRG 368 ==
LOC: ER 16:26 → 2N 19:11
PROVIDERS: Emergency Medicine; Internal Medicine; ADMIT Hospitalist; ATTEND Hospitalist
PROC: 30233N1 Transfusion of Nonautologous Red Blood Cells into Peripheral Vein, Percutaneous Approach (ICD-10-PCS; principal; 2020-09-05)
PROC: 0DJ08ZZ Inspection of Upper Intestinal Tract, Via Natural or Artificial Opening Endoscopic (ICD-10-PCS; 2020-09-08)
PROC: 5A1D70Z Performance of Urinary Filtration, Intermittent, Less than 6 Hours Per Day (ICD-10-PCS; 2020-09-09)
DX: I85.01 Esophageal varices with bleeding (principal); N18.6 End stage renal disease; E43 Unspecified severe protein-calorie malnutrition; D61.818 Other pancytopenia; R45.851 Suicidal ideations; K76.6 Portal hypertension; I12.0 Hypertensive chronic kidney disease with stage 5 chronic kidney disease or end stage renal disease; K62.5 Hemorrhage of anus and rectum; I86.4 Gastric varices; K52.9 Noninfective gastroenteritis and colitis, unspecified; K72.90 Hepatic failure, unspecified without coma; Z20.822 Contact with and (suspected) exposure to COVID-19; F41.9 Anxiety disorder, unspecified; G89.29 Other chronic pain; E11.42 Type 2 diabetes mellitus with diabetic polyneuropathy; I25.10 Atherosclerotic heart disease of native coronary artery without angina pectoris; K21.9 Gastro-esophageal reflux disease without esophagitis; K59.00 Constipation, unspecified; F32.9 Major depressive disorder, single episode, unspecified; E03.9 Hypothyroidism, unspecified; B19.20 Unspecified viral hepatitis C without hepatic coma; G43.909 Migraine, unspecified, not intractable, without status migrainosus; R53.81 Other malaise; I48.91 Unspecified atrial fibrillation; K74.60 Unspecified cirrhosis of liver; G47.00 Insomnia, unspecified; M19.90 Unspecified osteoarthritis, unspecified site; K22.2 Esophageal obstruction; K44.9 Diaphragmatic hernia without obstruction or gangrene; K76.0 Fatty (change of) liver, not elsewhere classified; K31.89 Other diseases of stomach and duodenum; Z86.010 Personal history of colon polyps; Z90.710 Acquired absence of both cervix and uterus; Z90.49 Acquired absence of other specified parts of digestive tract; Z86.14 Personal history of Methicillin resistant Staphylococcus aureus infection; Z95.0 Presence of cardiac pacemaker; Z88.6 Allergy status to analgesic agent; Z88.2 Allergy status to sulfonamides; Z88.8 Allergy status to other drugs, medicaments and biological substances; Z68.30 Body mass index [BMI] 30.0-30.9, adult; Z82.49 Family history of ischemic heart disease and other diseases of the circulatory system; Z83.3 Family history of diabetes mellitus; Z28.21 Immunization not carried out because of patient refusal
CPT/HCPCS: 10081; 32100; 62110; 62900; 70005